=== PATIENT | female | born 1955 | race African-American/Black ===

== ENCOUNTER 2018-07-23 19:26 | Emergency (ER) | payer OTHER ==
[2018-07-23] MEDS ORDERED: METHYLPREDNISOLONE 125 MG INJ ONE (20:33)
[2018-07-23] MEDS ORDERED: LEVALBUTEROL 1.25 MG/3 ML NEB ONE (20:33)
[2018-07-23] MEDS ORDERED: OSELTAMIVIR 75 MG CAP ONE (20:33)
[2018-07-23] MEDS ORDERED: ALBUTEROL 2.5 MG/3 ML NEB SOL ONE (20:33)
[2018-07-23] MEDS ORDERED: IPRATROPIUM BROM 0.5MG/2.5ML ONE (20:33)
[2018-07-23] MEDS ORDERED: VANCOMYCIN 1 GM/VIAL ONE (20:33)
[2018-07-23] MEDS ORDERED: NA CHLORIDE 0.9% 250 ML ONE (20:34)
[2018-07-23] MEDS ORDERED: CEFEPIME 1 GM/100 ML BAG IV ONE (20:34)
[2018-07-23 20:57] LABS: Absolute Lymphocytes (CBC) 0.2 K/uL (0.7-4.9); Absolute Monocytes 0.6 K/uL (0.1-1.3); Absolute Neutrophil 7.7 K/uL (1.8-8.0); Basophils % 0.5 % (0-1.3); Eosinophils % 0.1 % (0-4.4); Hematocrit 39.4 % (36.0-45.0); Lymphocytes % 2.4 % (15.3-44.8); MPV 7.6 fL (7.6-11.3); Monocytes % 6.7 % (3.3-12.3); RBC Red Blood Cell Count 4.59 M/uL (3.86-4.86)
[2018-07-23 21:00] LABS: Protime INR 1.09
[2018-07-23 21:09] LABS: ALT/SGPT 12 U/L (12-78); AST/SGOT 13 U/L (15-37); Albumin 3.2 g/dL (3.4-5.0); Alkaline Phosphatase 71 U/L (45-117); BUN Blood Urea Nitrogen 34 mg/dL (7-18); Bicarbonate 27 mmol/L (21-32); Bilirubin Direct < 0.1 mg/dL (0-0.2); Bilirubin Total 0.2 mg/dL (0.2-1.0); CKMB Creatine Kinase MB 1.3 ng/mL (0.3-3.6); Creatine Phosphokinase 280 U/L (26-192); Glucose Level 138 mg/dL (74-106); Lipase 56 U/L (73-393); Magnesium 1.6 mg/dL (1.8-2.4); NT PRO-BNP 1506 pg/mL (<125); Protein, Total 9.1 g/dL (6.4-8.2); Sodium Level 133 mmol/L (136-145); Troponin (Emerg Dept Use Only) < 0.02 ng/mL (0.0-0.045)
[2018-07-23 21:10] LABS: Arterial Blood Carboxyhemoglob 2.8 % (0-1.5); Blood Gas Oxyhemoglobin 92.1 % (94-97); Blood O2 Saturation 95.9 % (92-98.5)
[2018-07-23] MEDS ORDERED: INSULIN -REGULAR HUMAN 50 UNIT/0.5 ML ML ONE (21:44)
[2018-07-23] MEDS ORDERED: D50W 25 GM/50 ML SYRINGE IV ONE (21:44)
[2018-07-23 21:51] LABS: Blood Morphology Comment NOT SEEN (NOT SEEN); Platelet Estimate ADEQ; Urine White Blood Cell Casts OK
[2018-07-23] MEDS ORDERED: CALCIUM GLUCONATE 1 GM IVPB 2 GM/100 ML BAG IV ONE (21:54)
[2018-07-23 23:09] LABS: Arterial Blood Carboxyhemoglob 2.2 % (0-1.5); Blood Gas Oxyhemoglobin 85.5 % (94-97); Blood O2 Saturation 88.5 % (92-98.5)
[2018-07-24] MEDS ORDERED: MAGNESIUM SULFATE 1 gm IVPB 1 GM/100 ML BAG IV ONE (00:02)
--- NOTE | 2018-07-24 00:44 | ER ---
Nurse's Notes [facility] Name: Deanna Flores Age: 62 yrs Sex: Female : 1955 Arrival Date: 07/23/2018 Time: 19:30 Bed 3 Private MD: Francisco Javier Shaffer Diagnosis: Hyperkalemia;Influenza due to certain identified influenza viruses;Pneumonia due to other specified bacteria Presentation: 07/23 19:57 Presenting complaint: Family states patient has been short of breath since this lp1 morning, diagnosed with the Flu today and throughout day has been harder to keep her awake; "She kept falling asleep, I couldn't keep her awake to eat or drink today"; Family states patient uses 3L home O2. Transition of care: patient was not received from another setting of care. Onset of symptoms was July 23, 2018. Risk Assessment: Do you want to hurt yourself or someone else? Patient reports no desire to harm self or others. Initial Sepsis Screen: Does the patient meet any 2 criteria? No. Patient's initial sepsis screen is negative. Does the patient have a suspected source of infection? No. Patient's initial sepsis screen is negative. Care prior to arrival: None. 19:57 Method Of Arrival: Wheelchair lp1 19:57 Acuity: JUDI 1 lp1 Triage Assessment: 20:00 General: Appears distressed, Behavior is drowsy. Respiratory: Airway is patent lp1 Respiratory effort is labored, Respiratory pattern is tachypnea Onset: The symptoms/episode began/occurred this morning, the patient has severe shortness of breath. Historical: - Allergies: 20:07 Sulfa (Sulfonamide Antibiotics); lp1 20:07 Codeine; lp1 - Home Meds: 20:07 furosemide 20 mg Oral tab [Active]; allopurinol 100 mg Oral tab 1 tab once daily lp1 [Active]; Bystolic 5 mg oral tab 1 tab once daily [Active]; cetirizine 10 mg oral tab 1 tab once daily [Active]; amlodipine 5 mg tab 1 tab once daily [Active]; atorvastatin 20 mg oral tab 1 tab once daily [Active]; aspirin 81 mg Oral TbEC 1 tab once daily [Active]; Plavix 75 mg Oral tab 1 tab once daily [Active]; fluticasone inhalation inhalation 1 puff [Active]; - PMHx: 20:07 COPD; Hypertension; "Enlarged heart"; Hyperlipidemia; CHF; Gout; lp1 - PSHx: 20:07 ; lp1 - Immunization history:: Adult Immunizations up to date. - Social history:: Smoking status: Patient uses tobacco products, smokes one pack cigarettes per day. Patient/guardian denies using alcohol, street drugs, The patient lives alone. - Ebola Screening: : No symptoms or risks identified at this time. - Family history:: not pertinent. Screenin:08 Abuse screen: Denies threats or abuse. Denies injuries from another. Nutritional lp1 screening: No deficits noted. Tuberculosis screening: No symptoms or risk factors identified. Fall Risk Total Albarran Fall Scale indicates High Risk Score (45 or more points). Fall prevention measures have been instituted. Side Rails Up X 2 Placed Close to Nursing Station Frequent Obs/Assessments Occuring Family Present and informed to notify staff if the need to leave the bedside As available patient and family educated on Fall Prevention Program and Strategies. Assessment: 20:00 General: Appears distressed, Behavior is calm, cooperative, RT at bedside to place ed1 bipap. Pain: Denies pain. Neuro: Level of Consciousness is lethargic, Oriented to person, place, situation. Cardiovascular: Denies chest pain, Heart tones S1 S2 present Rhythm is sinus tachycardia. Respiratory: Airway is patent Respiratory effort is grunting Respiratory pattern is symmetrical, Breath sounds are coarse bilaterally. Breath sounds are diminished bilaterally. Parent/caregiver reports the patient having shortness of breath at rest air hunger. GI: Parent/caregiver reports the patient having anorexia, vomiting. : No signs and/or symptoms were reported regarding the genitourinary system. EENT: No signs and/or symptoms were reported regarding the EENT system. Derm: Skin is intact, is healthy with good turgor, Skin is dry, Skin is normal, Skin temperature is warm. Musculoskeletal: Circulation, motion, and sensation intact. Range of motion: intact in all extremities. 21:00 Reassessment: Patient and/or family updated on plan of care and expected duration. Pain ed1 level reassessed. Patient states symptoms have improved. 21:00 Neuro: Level of Consciousness is obeys commands, Oriented to person, place. ed1 22:14 Reassessment: Patient appears in no apparent distress at this time. Patient and/or ed1 family updated on plan of care and expected duration. Pain level reassessed. RT called to adjust bipap settings Patient denies pain at this time. 22:14 Neuro: Level of Consciousness is obeys commands, lethargic, Oriented to person, place. ed1 22:31 Reassessment: Pt's fio2 increased to 70%. Dr ordering repeat ABG. fc 23:13 Reassessment: Patient appears in no apparent distress at this time. Patient and/or ed1 family updated on plan of care and expected duration. Pain level reassessed. 23:13 Neuro: Level of Consciousness is lethargic, Oriented to person, place. ed1 23:48 Reassessment: Patient and/or family updated on plan of care and expected duration. Pain ed1 level reassessed. RT at bedside to adjust bipap Patient denies pain at this time. 23:48 Neuro: Level of Consciousness is lethargic. ed1 07/24 01:31 Reassessment: Patient appears in no apparent distress at this time. Patient and/or ed1 family updated on plan of care and expected duration. Pain level reassessed. Patient denies pain at this time. Neuro: Level of Consciousness is lethargic, Oriented to person, place. Vital Signs: 18 19:59 Pulse Ox 68% on R/A; lp1 19:59 Pulse Ox 91% on Non-rebreather mask; lp1 20:00 BP 156 / 80; Pulse 108; Resp 28; Temp 97.5(TE); Pulse Ox 93% on 60% BiPAP; Weight ed1 106.14 kg; Height 5 ft. 6 in. (167.64 cm); Pain 0/10; 21:00 BP 131 / 78; Pulse 96; Resp 22; Pulse Ox 95% on 60% BiPAP; Pain 0/10; ed1 22:11 BP 136 / 62; Pulse 107; Resp 20; Pulse Ox 96% on 80% BiPAP; Pain 0/10; ed1 23:13 BP 128 / 68; Pulse 83; Resp 32; Pulse Ox 90% on 80% BiPAP; Pain 0/10; ed1 23:48 BP 124 / 74; Pulse 92; Resp 20; Pulse Ox 92% on 100% BiPAP; Pain 0/10; ed1 07/24 00:26 BP 137 / 73; Pulse 76; Resp 30; Temp 97.2(TE); Pulse Ox 90% on 90% BiPAP; ed1 00:47 Pulse 85; Resp 21; Pulse Ox 94% on 90% BiPAP; ed1 01:31 BP 131 / 69; Pulse 80; Resp 27; Pulse Ox 95% on 90% BiPAP; Pain 0/10; ed1 0218 20:00 Body Mass Index 37.77 (106.14 kg, 167.64 cm) ed1 07/23 20:00 BiPAP settings of 16/8, Rate of 14, 60% O2 ed1 23:48 bipap settings 24/10; resp 20; 100% O2 ed1 Surjit Coma Score: 20:00 Eye Response: to voice(3). Verbal Response: confused(4). Motor Response: obeys lp1 commands(6). Total: 13. 21:00 Eye Response: spontaneous(4). Verbal Response: oriented(5). Motor Response: obeys ed1 commands(6). Total: 15. 22:11 Eye Response: spontaneous(4). Verbal Response: oriented(5). Motor Response: obeys ed1 commands(6). Total: 15. ED Course: 19:30 Patient arrived in ED. es 19:31 Francisco Javier Shaffer MD is Private Physician. es 19:38 Jenna Hansen MD is Attending Physician. ma2 19:59 Triage completed. lp1 20:01 Arm band placed on left wrist. lp1 20:09 Patient has correct armband on for positive identification. Placed in gown. Bed in low lp1 position. Side rails up X2. quality assurance monitor chassis on. Pulse ox on. NIBP on. 20:18 Shwetha Ayala, RN is Primary Nurse. ed1 20:40 Initial lab(s) drawn, by me, sent to lab. Inserted 18 gauge 10 cm midline to left upper fc brachial vein on second attempt. Line with good blood return and flushes well. pt tolerated it well. 21:10 Notified ED physician of a critical lab result(s). D-Dimer 1254. lp1 21:24 Notified ED physician of a critical lab result(s). Potassium 7.0. ed1 22:50 XRAY CXR (1 view) In Process Unspecified. EDMS 07/24 00:03 BIPAP Sent. ed1 01:31 No provider procedures requiring assistance completed. Patient transferred, IV remains ed1 in place. intact, No redness/swelling at site. Administered Medications: 07/23 21:01 Drug: Xopenex 1.25 mg Route: Inhalation; ed1 21:01 Drug: Albuterol 2.5 mg Route: Inhalation; ed1 21:01 Drug: SOLU-Medrol 125 mg Route: IVP; Site: left upper arm; ed1 23:11 Follow up: Response: No adverse reaction ed1 21:01 Drug: Cefepime 1 grams Route: IVPB; Rate: 200 ml/hr; Infused Over: 30 mins; Site: left ed1 upper arm; 21:47 Follow up: Response: No adverse reaction; IV Status: Completed infusion; IV Intake: [id number] 21:02 Drug: AtroVENT Aerosol 0.5 mg Route: Inhalation; ed1 21:21 Drug: Albuterol 2.5 mg Route: Inhalation; ed1 21:21 Drug: AtroVENT Aerosol 0.5 mg Route: Inhalation; ed1 21:41 Drug: Albuterol 2.5 mg Route: Inhalation; ed1 21:41 Drug: AtroVENT Aerosol 0.5 mg Route: Inhalation; ed1 21:47 Drug: D50W 100 ml Route: IVP; Site: left upper arm; lp1 23:09 Follow up: Response: No adverse reaction ed1 21:52 Drug: vancoMYCIN 1 grams Route: IVPB; Infused Over: 2 hrs; Site: left upper arm; lp1 23:47 Follow up: Response: No adverse reaction; IV Status: Completed infusion; IV Intake: ed1 250ml 21:58 Drug: Calcium Gluconate 2 grams Route: IVPB; Infused Over: 60 mins; Site: left upper lp1 arm; 23:10 Follow up: Response: No adverse reaction; IV Status: Completed infusion; IV Intake: ed1 100ml 21:59 Drug: Insulin Regular Human 10 units {Co-Signature: ed1 (Shwetha Ayala RN).} Route: IVP; lp1 Site: left upper arm; 23:09 Follow up: Response: No adverse reaction ed1 22:10 CANCELLED (na): NS 0.9% 500 ml IV at 1 bolus Per protocol; 1000 mL bolus ma2 23:46 Not Given (Pt unable to tolerate PO at this time; notified): Tamiflu 75 mg PO once ed1 07/24 00:00 Drug: Magnesium Sulfate 1 grams Route: IVPB; Infused Over: 1 hrs; Site: left upper arm; ed1 01:35 Follow up: IV Status: Infusion continued upon transfer ed1 Intake: 07/23 21:47 IV: 50ml; Total: 50ml. lp1 23:10 IV: 100ml; Total: 150ml. ed1 23:47 IV: 250ml; Total: 400ml. ed1 Outcome: 07/24 00:43 ER care complete, transfer ordered by . ma2 01:31 Transferred by ground EMS [facility]. to other acute care facility: [facility] ed1 [place]. Transfer form completed. Note: Report called to [facility] Holder 01:31 Condition: stable 01:31 Discharge instructions given to patient, family, Instructed on the need for transfer, Demonstrated understanding of instructions. 01:58 Patient left the ED. ed1 Signatures: Dispatcher [employer] EDMS Saundra Pemberton Felicia, RN RN Shwetha Ayala RN RN ed1 Gabrielle Thrasher RN RN 1 Jenna Hansen MD MD hi2 Shwetha Ayala RN ed1 Corrections: (The following items were deleted from the chart) 07/23 20:02 20:00 BP 156 / 80; Pulse 108bpm; Resp 28bpm; Pulse Ox 93% 02 60% BiPAP; 106.14 kg; lp1 Height 5 ft. 6 in.; BMI: 37.7; Pain 0/10; lp1 20:08 19:57 Acuity: JUDI 2 lp1 lp1 22:11 20:00 General: Appears distressed, Behavior is calm, cooperative, ed1 ed1 07/24 00:16 18 21:00 Reassessment: Patient and/or family updated on plan of care and expected ed1 duration. Pain level reassessed. Patient is alert, oriented x 3, equal unlabored respirations, skin warm/dry/pink. Patient states symptoms have improved. ed1 07/24 00:16 18 22:14 Reassessment: Patient appears in no apparent distress at this time. Patient ed1 and/or family updated on plan of care and expected duration. Pain level reassessed. Patient is alert, oriented x 3, equal unlabored respirations, skin warm/dry/pink. RT called to adjust bipap settings Patient denies pain at this time. ed1 07/24 00:17 07/23 23:13 Reassessment: Patient appears in no apparent distress at this time. Patient ed1 and/or family updated on plan of care and expected duration. Pain level reassessed. Patient is alert, oriented x 3, equal unlabored respirations, skin warm/dry/pink. ed1 07/24 00:18 07/23 23:48 Reassessment: Patient and/or family updated on plan of care and expected ed1 duration. Pain level reassessed. Patient is alert, oriented x 3, equal unlabored respirations, skin warm/dry/pink. RT at bedside to adjust bipap Patient denies pain at this time. ed1 07/24 01:01 07/23 23:48 BP 124 / 74; Pulse 92bpm; Resp 20bpm; Pulse Ox 92% 02 100% BiPAP; Pain ed1 0/10; bipap settings 2/10; resp 20; 100% O2; ed1 07/24 01:31 18 20:00 BP 156 / 80; Pulse 108bpm; Resp 28bpm; Pulse Ox 93% 02 60% BiPAP; 106.14 ed1 kg; Height 5 ft. 6 in.; BMI: 37.7; Pain 0/10; BiPAP settings of 16/8, Rate of 14, 60% O2; lp1 07/24 01:31 00:26 BP 137 / 73; Pulse 76bpm; Resp 30bpm; Pulse Ox 90% 02 90% BiPAP; ed1 ed1
--- NOTE | 2018-07-24 00:44 | EDPHYS ---
Physician Documentation [facility] Name: Deanna Flores Age: 62 yrs Sex: Female : 1955 Arrival Date: 07/23/2018 Time: 19:30 Bed 3 Private MD: Francisco Javier Shaffer ED Physician Jenna Hansen HPI: 07/23 22:44 This 62 yrs old Black Female presents to ER via Wheelchair with complaints of Breathing ma2 Difficulty, UNABLE TO STAY AWAKE. 22:44 Onset: The symptoms/episode began/occurred gradually, 1 day(s) ago. Duration: The ma2 symptoms are continuous. Associated signs and symptoms: Pertinent positives: productive cough, Pertinent negatives: fever, loss of consciousness, visual changes. Severity of symptoms: At their worst the symptoms were moderate in the emergency department the symptoms are unchanged. The patient has experienced a previous episode. has flu here with sob and cough . Historical: - Allergies: 20:07 Sulfa (Sulfonamide Antibiotics); lp1 20:07 Codeine; lp1 - Home Meds: 20:07 furosemide 20 mg Oral tab [Active]; allopurinol 100 mg Oral tab 1 tab once daily lp1 [Active]; Bystolic 5 mg oral tab 1 tab once daily [Active]; cetirizine 10 mg oral tab 1 tab once daily [Active]; amlodipine 5 mg tab 1 tab once daily [Active]; atorvastatin 20 mg oral tab 1 tab once daily [Active]; aspirin 81 mg Oral TbEC 1 tab once daily [Active]; Plavix 75 mg Oral tab 1 tab once daily [Active]; fluticasone inhalation inhalation 1 puff [Active]; - PMHx: 20:07 COPD; Hypertension; "Enlarged heart"; Hyperlipidemia; CHF; Gout; lp1 - PSHx: 20:07 ; lp1 - Immunization history:: Adult Immunizations up to date. - Social history:: Smoking status: Patient uses tobacco products, smokes one pack cigarettes per day. Patient/guardian denies using alcohol, street drugs, The patient lives alone. - Ebola Screening: : No symptoms or risks identified at this time. - Family history:: not pertinent. ROS: 22:44 Constitutional: Negative for fever, chills, and weight loss. ma2 22:44 Respiratory: Positive for cough, dyspnea on exertion, Negative for orthopnea, pleurisy, wheezing. 22:44 All other systems are negative. Exam: 22:44 Constitutional: This is a well developed, well nourished patient who is awake, alert, ma2 and in no acute distress. Neck: Trachea midline, no thyromegaly or masses palpated, and no cervical lymphadenopathy. Supple, full range of motion without nuchal rigidity, or vertebral point tenderness. No Meningismus. Chest/axilla: Normal chest wall appearance and motion. Nontender with no deformity. No lesions are appreciated. 22:44 Cardiovascular: Regular rate and rhythm with a normal S1 and S2. No gallops, murmurs, or rubs. Normal PMI, no JVD. No pulse deficits. Abdomen/GI: Soft, non-tender, with normal bowel sounds. No distension or tympany. No guarding or rebound. No evidence of tenderness throughout. MS/ Extremity: Pulses equal, no cyanosis. Neurovascular intact. Full, normal range of motion. Neuro: Awake and alert, GCS 15, oriented to person, place, time, and situation. Cranial nerves II-XII grossly intact. Motor strength 5/5 in all extremities. Sensory grossly intact. Cerebellar exam normal. Normal gait. 22:44 Respiratory: moderate respiratory distress is noted, Breath sounds: rales, rhonchi, wheezing: Respiratory rate: 30 Vital Signs: 19:59 Pulse Ox 68% on R/A; lp1 19:59 Pulse Ox 91% on Non-rebreather mask; lp1 20:00 BP 156 / 80; Pulse 108; Resp 28; Temp 97.5(TE); Pulse Ox 93% on 60% BiPAP; Weight ed1 106.14 kg; Height 5 ft. 6 in. (167.64 cm); Pain 0/10; 21:00 BP 131 / 78; Pulse 96; Resp 22; Pulse Ox 95% on 60% BiPAP; Pain 0/10; ed1 22:11 BP 136 / 62; Pulse 107; Resp 20; Pulse Ox 96% on 80% BiPAP; Pain 0/10; ed1 23:13 BP 128 / 68; Pulse 83; Resp 32; Pulse Ox 90% on 80% BiPAP; Pain 0/10; ed1 23:48 BP 124 / 74; Pulse 92; Resp 20; Pulse Ox 92% on 100% BiPAP; Pain 0/10; ed1 07/24 00:26 BP 137 / 73; Pulse 76; Resp 30; Temp 97.2(TE); Pulse Ox 90% on 90% BiPAP; ed1 00:47 Pulse 85; Resp 21; Pulse Ox 94% on 90% BiPAP; ed1 01:31 BP 131 / 69; Pulse 80; Resp 27; Pulse Ox 95% on 90% BiPAP; Pain 0/10; ed1 07/23 20:00 Body Mass Index 37.77 (106.14 kg, 167.64 cm) ed1 07/23 20:00 BiPAP settings of 16/8, Rate of 14, 60% O2 ed1 23:48 bipap settings 24/10; resp 20; 100% O2 ed1 [place] Coma Score: 20:00 Eye Response: to voice(3). Verbal Response: confused(4). Motor Response: obeys lp1 commands(6). Total: 13. 21:00 Eye Response: spontaneous(4). Verbal Response: oriented(5). Motor Response: obeys ed1 commands(6). Total: 15. 22:11 Eye Response: spontaneous(4). Verbal Response: oriented(5). Motor Response: obeys ed1 commands(6). Total: 15. MDM: 19:38 Patient medically screened. ma2 22:44 Differential diagnosis: Anemia asthma, Bronchitis CHF exacerbation, Chronic Obstructive ma2 Pulmonary Disease reactive airway disease. 07/24 00:39 Antibiotic administration: Data reviewed: vital signs, nurses notes. Counseling: I had ma2 a detailed discussion with the patient and/or guardian regarding: the historical points, exam findings, and any diagnostic results supporting the discharge/admit diagnosis, the presence of at least one elevated blood pressure reading (>120/80) during this emergency department visit, the need to transfer to another facility. Response to treatment: the patient's symptoms have markedly improved after treatment. ED course: patient has pneumonia on cxr and hyperkalemia treated medically she was flue +, given tamiflu in er, her O2 saturation was 80 we put her on Bipap, respiratory condition improved she is AOx4 all through out her stay in er, her pulse improved from 110 to 85 bpm.. will transfer for higher level of care as no icu bed available in our hospital , accepted at [facility] by dr. Sykes and dr. Javier . 07/23 20:10 Order name: ABG; Complete Time: 22:06 [facility] 07/23 20:10 Order name: Blood Culture Adult (2) [facility] 07/23 20:10 Order name: BMP; Complete Time: :23 [facility] 07/23 20:10 Order name: CBC with Diff; Complete Time: 22: [facility] 07/23 20:10 Order name: Ckmb; Complete Time: : [facility] 07/23 20:10 Order name: CPK; Complete Time: : [facility] 07/23 20:10 Order name: D-Dimer; Complete Time: : [facility] 07/23 20:10 Order name: Hepatic Function; Complete Time: : [facility] 07/23 20:10 Order name: Lipase; Complete Time: : [facility] 07/23 20:10 Order name: Magnesium; Complete Time: : [facility] 07/23 20:10 Order name: NT PRO-BNP; Complete Time: : [facility] 07/23 20:10 Order name: PT-INR; Complete Time: : [facility] 07/23 20:10 Order name: Ptt, Activated; Complete Time: : [facility] 07/23 20:10 Order name: Troponin (emerg Dept Use Only); Complete Time: : [facility] 07/23 20:10 Order name: BIPAP [facility] 07/23 20:10 Order name: XRAY CXR (1 view) [facility] 07/23 21:02 Order name: Lactate; Complete Time: 21:23 [facility] 07/23 21:03 Order name: CBC Smear Scan; Complete Time: 22:06 [facility] 07/23 22:30 Order name: ABG 07/23 22:31 Order name: ABG Arterial Blood Gas; Complete Time: 00:21 [facility] 07/23 23:29 Order name: BMP: potassium post Rx repeat ; Complete Time: 00:21 [facility] 07/23 20:10 Order name: EKG; Complete Time: 20:12 [facility] 07/23 20:10 Order name: Cardiac monitoring; Complete Time: 20:26 [facility] 07/23 20:10 Order name: EKG - Nurse/Tech; Complete Time: 23:10 [facility] 07/23 20:10 Order name: IV Saline Lock; Complete Time: 23:10 [facility] 07/23 20:10 Order name: Labs collected and sent; Complete Time: 23:10 [facility] 07/23 20:10 Order name: O2 Per Protocol; Complete Time: 20:26 ma2 07/23 20:10 Order name: O2 Sat Monitoring; Complete Time: 20:26 ma2 Administered Medications: 07/23 21:01 Drug: Xopenex 1.25 mg Route: Inhalation; ed1 21:01 Drug: Albuterol 2.5 mg Route: Inhalation; ed1 21:01 Drug: SOLU-Medrol 125 mg Route: IVP; Site: left upper arm; ed1 23:11 Follow up: Response: No adverse reaction ed1 21:01 Drug: Cefepime 1 grams Route: IVPB; Rate: 200 ml/hr; Infused Over: 30 mins; Site: left ed1 upper arm; 21:47 Follow up: Response: No adverse reaction; IV Status: Completed infusion; IV Intake: [id number] 21:02 Drug: AtroVENT Aerosol 0.5 mg Route: Inhalation; ed1 21:21 Drug: Albuterol 2.5 mg Route: Inhalation; ed1 21:21 Drug: AtroVENT Aerosol 0.5 mg Route: Inhalation; ed1 21:41 Drug: Albuterol 2.5 mg Route: Inhalation; ed1 21:41 Drug: AtroVENT Aerosol 0.5 mg Route: Inhalation; ed1 21:47 Drug: D50W 100 ml Route: IVP; Site: left upper arm; lp1 23:09 Follow up: Response: No adverse reaction ed1 21:52 Drug: vancoMYCIN 1 grams Route: IVPB; Infused Over: 2 hrs; Site: left upper arm; lp1 23:47 Follow up: Response: No adverse reaction; IV Status: Completed infusion; IV Intake: ed1 250ml 21:58 Drug: Calcium Gluconate 2 grams Route: IVPB; Infused Over: 60 mins; Site: left upper lp1 arm; 23:10 Follow up: Response: No adverse reaction; IV Status: Completed infusion; IV Intake: ed1 100ml 21:59 Drug: Insulin Regular Human 10 units {Co-Signature: ed1 (Shwetha Ayala RN).} Route: IVP; lp1 Site: left upper arm; 23:09 Follow up: Response: No adverse reaction ed1 22:10 CANCELLED (na): NS 0.9% 500 ml IV at 1 bolus Per protocol; 1000 mL bolus oh2 23:46 Not Given (Pt unable to tolerate PO at this time; notified): Tamiflu 75 mg PO once ed1 07/24 00:00 Drug: Magnesium Sulfate 1 grams Route: IVPB; Infused Over: 1 hrs; Site: left upper arm; ed1 01:35 Follow up: IV Status: Infusion continued upon transfer ed1 Disposition: 07/24/18 00:43 Transfer ordered to Other Acute Care Facility. Diagnosis are Hyperkalemia, Influenza due to certain identified influenza viruses, Pneumonia due to other specified bacteria. - Reason for transfer: Higher level of care. - Accepting physician is Dr. Sykes. - Condition is Critical. - Problem is new. - Symptoms have improved. Signatures: Dispatcher [employer] [facility] Shwetha Ayala RN RN ed1 Gabrielle Thrasher RN RN 1 Jenna Hansen MD MD oh2 Shwetha Ayala RN ed1 Corrections: (The following items were deleted from the chart) 07/23 22:10 22:06 NS 0.9% 500 ml IV at 1 bolus Per protocol; 1000 mL bolus ordered. [place] [id number] 22:20 21:24 Chest For PE Angio+[id number].RAD.BRZ ordered. [facility] 07/24 00:53 07/23 20:10 Nicolas ordered. [place] [id number] 07/24 01:58 00:43 07/24/2018 00:43 Transfer ordered to Other Acute Care Facility. Diagnosis is ed1 Hyperkalemia; Influenza due to certain identified influenza viruses; Pneumonia due to other specified bacteria. Reason for transfer: Higher level of care. Accepting physician is Dr. Sykes. Condition is Critical. Problem is new. Symptoms have improved. [facility]
--- NOTE | 2018-07-24 08:48 | EKG ---
Test Date: 2018-07-23 Test Time: 21:35:14 Mechanical Apprentice: AER MEASUREMENT RESULTS: Intervals: Rate: 100 CO: 162 QRSD: 94 QT: 346 QTc: 446 [place]: P: 54 CO: 162 QRS: 38 T: 62 INTERPRETIVE STATEMENTS: Normal sinus rhythm Possible Left atrial enlargement Borderline ECG No previous ECG available for comparison Electronically Signed On 07-24-18 08:46:01 [employer] by Mark Licona
--- NOTE | 2018-07-24 13:22 | RAD REPORT ---
EXAM DESCRIPTION: XR Chest, 1 View CLINICAL HISTORY: The patient is 62 years old and is Female; COPD COMPARISON: No relevant prior studies available. TECHNIQUE: Frontal view of the chest. FINDINGS: Lungs: There is bilateral hilar enlargement. There is diffuse increased interstitial density with superimposed patchy airspace disease particularl y in the lung bases. Pleural space: Unremarkable. No pneumothorax. Heart: Large cardiac shadow. Mediastinum: Unremarkable. Bones/joints: Unremarkable. IMPRESSION: 1. Bilateral hilar enlargement possibly related to adenopathy or pulmonary arterial hype rtension. Prior study comparison or IV contrast CT chest would be helpful. 2. Interstitial disease with superimposed mild patchy airspace disease particularly in the bases. Con licensed mortician pneumonia. Electronically signed by Stacey Young MD 07/23/2018 10:53 PM [employer] ATTENDANT Due to temporary technical issues with the PACS/Fluency reporting system, reports are being signed by the in house radiologist as a courtesy to ensure prompt reporting. The interpreting radiologist is f ully responsible for the content of the report.
== END 2018-07-24 01:58 ==
LOC: ER 19:26
DX: J10.08 Influenza due to other identified influenza virus with other specified pneumonia (principal); J15.8 Pneumonia due to other specified bacteria; E87.5 Hyperkalemia; F17.210 Nicotine dependence, cigarettes, uncomplicated; I10 Essential (primary) hypertension; J44.9 Chronic obstructive pulmonary disease, unspecified; I50.9 Heart failure, unspecified; E78.5 Hyperlipidemia, unspecified; Z79.01 Long term (current) use of anticoagulants; Z88.2 Allergy status to sulfonamides; Z88.5 Allergy status to narcotic agent
CPT/HCPCS: 36415; 71045; 80048; 80076; 82550; 82553; 82805; 83605; 83690; 83735; 83880; 84484; 85025; 85379; 85610; 85730; 87040; 93005; 94660; J0610; J0692; J2930; J3475

== ENCOUNTER 2019-01-22 15:20 | Inpatient (IN) | payer OTHER ==
--- OUTSIDE RECORDS SUMMARY | 2019-01-22 15:28 | XMS REPORT | Continuity of Care Document ---
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 obstructive lung disease (disorder) Essential Active Problem 2018 [facility] hypertension (disorder) Smoker (finding) Resolved Problem 2018 [facility] PNEUMONIA, Active [facility] UNSPECIFIED [place] OR[employer]ISM Medications Medication Details Route Status Patient Ordering Order Source Instructions Provider Date predniSONE 20 mg 40 mg=2 tab, Active oral tablet PO, Daily, X 3 2019 [facility] day, # 6 tab, 0 Refill(s), Pharmacy: [facility] [place] Furosemide 40 MG 40 mg=1 tab, Active Oral Tablet PO, Daily, # 30 2019 [facility] [Lasix] tab, 2 Refill(s), Pharmacy: [facility] [place] Furosemide 40 MG 40 mg, 1 tab, Inactive Oral Tablet Route: PO, Drug 2018 [facility] [Lasix] form: TAB, Daily, Dosing Weight 106.5, kg, Priority: NOW, Start date: 08/01/18 10:05:00 FIELD TRAINER, Duration: 30 day, Stop date: 08/31/18 9:00:00 CDTNotes: (Same as: Lasix) May cause GI upset. Give with food or milk. Lasix 40 mg, 4 mL, No Longer Route: IV, Drug Active 2018 [facility] form: INJ, BID, Dosing Weight 106.5, kg, Start date: 07/30/18 17:00:00 FIELD TRAINER, Duration: 30 day, Stop date: 08/29/18 9:00:00 CDTNotes: (Same as: Lasix) MEDICATION WASTE Product Size: 40 mg Product Wasted: ___ mg Lasix 40 mg, 1 tab, No Longer Route: PO, Drug Active 2019 [facility] form: TAB, BID, Dosing Weight 106.5, kg, Start date: 07/29/18 17:00:00 FIELD TRAINER, Duration: 30 day, Stop date: 08/28/18 9:00:00 CDTNotes: (Same as: Lasix) May cause GI upset. Give with food or milk. Acetazolamide 250 mg, Route: No Longer IVP, Drug form: Active 2019 [facility] PDR/INJ, Daily, Dosing Weight 106.5, kg, Priority: NOW, Start date: 07/29/18 9:26:00 FIELD TRAINER, Duration: 3 day, Stop date: 08/01/18 9:00:00 CSTNotes: (Same as: Diamox) Lasix 40 mg, 1 tab, Inactive Route: PO, Drug 2018 [facility] form: TAB, Daily, Dosing Weight 106.5, kg, Start date: 07/29/18 9:00:00 FIELD TRAINER, Duration: 30 day, Stop date: 08/27/18 9:00:00 CDTNotes: (Same as: Lasix) May cause GI upset. Give with food or milk. Bystolic 5 mg, 2 tab, No Longer Route: PO, Drug Active 2019 [facility] form: TAB, Daily, Dosing Weight 106.5, kg, Start date: 07/29/18 9:00:00 FIELD TRAINER, Duration: 30 day, Stop date: 08/27/18 9:00:00 CDTNotes: Same as: Bystolic Singulair 10 mg, 1 tab, No Longer Route: PO, Drug Active 2019 [facility] form: TAB, Daily, Dosing Weight 106.5, kg, Start date: 07/29/18 9:00:00 FIELD TRAINER, Duration: 30 day, Stop date: 08/27/18 9:00:00 CDTNotes: (Same as:Singulair) Fluticasone 50 microgram, No Longer propionate 0.05 Route: NASAL, Active 2018 [facility] MG/ACTUAT Metered Drug Form: Dose Nasal Sunray SPRY, Dosing [Flonase] Weight 106.5, kg, BID, Start date: 07/29/18 9:00:00 FIELD TRAINER, Duration: 30 day, Stop date: 08/27/18 17:00:00 CDTNotes: (Same as: Flonase) Advair Diskus 250 1 puff, Route: No Longer mcg-50 mcg INHALATION, Active 2019 [facility] inhalation powder Drug Form: AERO, Dosing Weight 106.5, kg, BID, Start date: 07/29/18 9:00:00 FIELD TRAINER, Duration: 30 day, Stop date: 08/27/18 17:00:00 CDT Aspirin 81 mg, 1 tab, No Longer Route: PO, Drug Active 2019 [facility] form: ECTAB, Daily, Dosing Weight 106.5, kg, Start date: 07/29/18 9:00:00 FIELD TRAINER, Duration: 30 day, Stop date: 08/27/18 9:00:00 CDTNotes: Do not crush or chew. (Same As: Ecotrin) Plavix 75 mg, 1 tab, No Longer Route: PO, Drug Active 2019 [facility] form: TAB, Daily, Dosing Weight 106.5, kg, Start date: 07/29/18 9:00:00 FIELD TRAINER, Duration: 30 day, Stop date: 08/27/18 9:00:00 CDTNotes: (Same As: Plavix) Norvasc 5 mg, 1 tab, No Longer Route: PO, Drug Active 2019 [facility] form: TAB, Daily, Dosing Weight 106.5, kg, Start date: 07/29/18 9:00:00 FIELD TRAINER, Duration: 30 day, Stop date: 08/27/18 9:00:00 CDTNotes: (Same as: Norvasc) Allopurinol 100 mg, 1 tab, No Longer Route: PO, Drug Active 2019 [facility] form: TAB, Daily, Dosing Weight 106.5, kg, Start date: 07/29/18 9:00:00 FIELD TRAINER, Duration: 30 day, Stop date: 08/27/18 9:00:00 CDTNotes: (Same as: Zyloprim) atorvastatin 20 mg, 2 tab, No Longer Route: PO, Drug Active 2019 [facility] form: TAB, Bedtime, Dosing Weight 106.5, kg, Start date: 07/28/18 21:00:00 FIELD TRAINER, Duration: 30 day, Stop date: 08/26/18 21:00:00 CDTNotes: (Same As: Lipitor) Zyrtec 10 mg, 1 tab, No Longer Route: PO, Drug Active 2018 [facility] form: TAB, Daily, Dosing Weight 106.5, kg, PRN Allergic reaction, Start date: 07/28/18 18:14:00 FIELD TRAINER, Duration: 30 day, Stop date: 08/27/18 18:13:00 CDTNotes: (Same As: Zyrtec) cefTRIAXone + 1 gm, Route: No Longer sterile water 10 IVP, [id number], Active 2018 [facility] mL Dosing Weight 106.5, kg, Start date: 07/27/18 17:00:00 FIELD TRAINER, Duration: 4 day, Stop date: 07/30/18 17:00:00 FIELD TRAINER, ABX Indication: PneumoniaNotes: (Same As: Rocephin). Use with 100 mL NS and infuse over 30 min MEDICATION WASTE Product Size: 1000 mg Product Wasted: ___ mg Ceftriaxone 1 gm, Route: Inactive IVP, [id number], 2018 [facility] Dosing Weight 106.5, kg, Start date: 07/27/18 17:00:00 FIELD TRAINER, Duration: 4 day, Stop date: 07/30/18 17:00:00 FIELD TRAINER, ABX Indication: PneumoniaNotes: (Same As: Rocephin). Use with 100 mL NS and infuse over 30 min MEDICATION WASTE Product Size: 1000 mg Product Wasted: ___ mg Furosemide 40 mg, 4 mL, Inactive Route: IVP, 2018 [facility] Drug form: INJ, ONCE, Dosing Weight 106.5, kg, Start date: 07/27/18 12:23:00 FIELD TRAINER, Stop date: 07/27/18 12:23:00 CSTNotes: (Same as: Lasix) MEDICATION WASTE Product Size: 40 mg Product Wasted: ___ mg Lasix 40 mg, 1 tab, No Longer Route: PO, Drug Active 2019 [facility] form: TAB, BID Diuretic, Dosing Weight 106.5, kg, Start date: 07/27/18 9:00:00 FIELD TRAINER, Duration: 30 day, Stop date: 08/26/18 8:00:00 CDTNotes: (Same as: Lasix) May cause GI upset. Give with food or milk. Prednisone 40 mg, 2 tab, No Longer Route: PO, Drug Active 2019 [facility] form: TAB, Daily, Dosing Weight 106.5, kg, Start date: 07/27/18 9:00:00 FIELD TRAINER, Duration: 30 day, Stop date: 08/25/18 9:00:00 CDTNotes: Take with food. clopidogrel 75 MG 75 mg=1 tab, Active Oral Tablet PO, Daily, # 30 2019 [facility] [Plavix] tab, 0 Refill(s) Fluticasone 1 spray, NASAL, Active propionate 0.05 BID, # 16 gm, 0 2019 [facility] MG/ACTUAT Metered Refill(s) Dose Nasal Sunray [Flonase] atorvastatin 20 mg 20 mg=1 tab, Active oral tablet PO, Bedtime, # 2019 [facility] 90 tab, 1 Refill(s) cetirizine 10 mg=1 tab, Active hydrochloride 10 PO, Daily, PRN 2019 [facility] MG Oral Tablet Allergic [Zyrtec] reaction, # 10 tab, 0 Refill(s) Furosemide 20 MG 20 mg=1 tab, No Longer Oral Tablet PO, Daily, 0 Active 2019 [facility] [Lasix] Refill(s) nebivolol 5 MG 5 mg=1 tab, PO, Active Oral Tablet Daily, # 30 2019 [facility] [Bystolic] tab, 0 Refill(s) montelukast 10 MG 10 mg=1 tab, Active Oral Tablet PO, Daily, 0 2019 [facility] [Singulair] Refill(s) 200 ACTUAT 1 puff, Active Albuterol 0.09 INHALER, Q6H, 2019 [facility] MG/ACTUAT Metered PRN for Dose Inhaler wheezing, # 8.5 [ProAir HFA] gm, 0 Refill(s) Amlodipine 5 MG 5 mg=1 tab, PO, Active Oral Tablet Daily, # 30 2019 [place] [Norvasc] tab, 0 Refill(s) Advair Diskus 250 1 puff, No Longer mcg-50 mcg INHALATION, Active 2019 [facility] inhalation powder BID, # 1 ea, 3 Refill(s) allopurinol 100 mg 100 mg=1 tab, Active oral tablet PO, Daily, # 90 2019 [facility] tab, 1 Refill(s) Magnesium Sulfate 1 gm, 100 mL, Inactive Route: IVPB, 2019 [facility] Drug form: INJ, ONCE, Dosing Weight 106.5, kg, Start date: 07/26/18 7:15:00 FIELD TRAINER, Stop date: 07/26/18 7:15:00 CSTNotes: WASTE: F/P - Sink; E - Municipal Trash Bin Solu-Medrol 40 mg, 1 mL, No Longer Route: IV, Drug Active 2019 [facility] form: INJ, Q12H, Dosing Weight 95.909, kg, Start date: 07/25/18 9:00:00 FIELD TRAINER, Stop date: 07/26/18 21:00:00 CSTNotes: (Same as:Solu-MEDROL, A-Methapred) Tamiflu 75 mg, 1 cap, Inactive Route: PO, Drug 2018 [facility] form: CAP, [id number], Dosing Weight 95.909, kg, CrCl > 30 to 60 mL/min, Start date: 07/24/18 18:00:00 FIELD TRAINER, Duration: 5 day, Stop date: 07/28/18 18:00:00 CSTNotes: Take with food. Same as: Tamiflu) vancomycin + 750 mg, Route: No Longer Sodium Chloride IVPB, Q12H, Active 2019 [facility] 0.9% IV 250 mL Start date: 07/24/18 18:00:00 FIELD TRAINER, Duration: 5 day, Stop date: 07/29/18 6:00:00 FIELD TRAINER, ABX Indication: PneumoniaNotes: TIME CRITICAL MEDICATION (Same As: Vancocin) Infusion rate 2001 mg: infuse over 2.5 hours For adult patients only: Round to nearest 250 mg per Medical Staff approval MEDICATION WASTE Product Size: 1000 mg Product Wasted: ___ mg Kayexalate 15 gm, 60 mL, Inactive Route: PO, Drug 2018 [facility] form: SUSP, ONCE, Dosing Weight 106.5, kg, Start date: 07/24/18 17:12:00 FIELD TRAINER, Stop date: 07/24/18 17:12:00 CSTNotes: (sodium polystyrene sulfonate 15 gm/60 ml JESSICA) Shake well before use. (Same as: Kayexalate, SPS) Lasix 40 mg, 4 mL, No Longer Route: IVP, Active 2018 [facility] Drug form: INJ, BID Diuretic, Dosing Weight 106.5, kg, Start date: 07/24/18 16:00:00 FIELD TRAINER, Duration: 30 day, Stop date: 08/23/18 8:00:00 CDTNotes: (Same as: Lasix) MEDICATION WASTE Product Size: 40 mg Product Wasted: ___ mg Oseltamivir 30 mg, 5 mL, No Longer Route: PO, Drug Active 2018 [facility] form: PDR/REC, Q12H, Dosing Weight 106.5, kg, Start date: 07/24/18 9:31:00 FIELD TRAINER, Duration: 5 day, Stop date: 07/29/18 9:00:00 CSTNotes: (Same as: Tamiflu) Sodium Bicarbonate 50 mEq, 50 mL, Inactive Route: IV, Drug 2018 [facility] form: INJ, ONCE, Dosing Weight 106.5, kg, Start date: 07/24/18 8:10:00 FIELD TRAINER, Stop date: 07/24/18 8:10:00 CSTNotes: (sodium bicarb 8.4% (1 mEq/ml) 50 ml VL) Solu-Medrol 40 mg, 1 mL, No Longer Route: IV, Drug Active 2018 [facility] form: INJ, Q8H, Dosing Weight 95.909, kg, Start date: 07/24/18 8:00:00 FIELD TRAINER, Duration: 30 day, Stop date: 08/23/18 0:00:00 CDTNotes: (Same as:Solu-MEDROL, A-Methapred) Budesonide 0.5 mg, 2 mL, No Longer Route: NEB, Active 2019 [facility] Drug form: SUSP, RBID, Dosing Weight 106.5, kg, Start date: 07/24/18 8:00:00 FIELD TRAINER, Duration: 30 day, Stop date: 08/22/18 20:00:00 CDTNotes: (Same As: Pulmicort) heparin 5,000 unit, 1 No Longer mL, Route: Active 2019 [facility] SUB-Q, Drug form: INJ, Q8H, Dosing Weight 95.909, kg, Start date: 07/24/18 8:00:00 FIELD TRAINER, Stop date: 08/23/18 0:00:00 CDTNotes: porcine heparin Albuterol 0.833 3 mL, Route: No Longer MG/ML / NEB, Drug Form: Active 2019 [facility] Ipratropium SOLN, Dosing [place] 0.167 Weight 95.909, MG/ML Inhalant kg, RQ6H, Start Solution date: 07/24/18 8:00:00 FIELD TRAINER, Duration: 30 day, Stop date: 08/23/18 2:00:00 CDTNotes: (Same as: Duoneb) cefepime 1 gm, Route: No Longer IVPB, [id number], Active 2019 [facility] Dosing Weight 95.909, kg, (CrCl 30 - 49 ml/min), Start date: 07/24/18 8:00:00 FIELD TRAINER, Duration: 5 day, Stop date: 07/28/18 20:00:00 FIELD TRAINER, ABX Indication: PneumoniaNotes: (Same As: Maxipime) MEDICATION WASTE Product Size: 1000 mg Product Wasted: ___ mg Insulin regular 6 unit, 0.06 Inactive mL, Route: IV, 2019 [facility] Drug form: SOLN, ONCE, Dosing Weight 106.5, kg, Start date: 07/24/18 6:19:00 FIELD TRAINER, Stop date: 07/24/18 6:19:00 CSTNotes: (Same as: Humulin R) Roll in palms of hands gently; Do not shake vigorously. "single patient use only" (Restricted to patients requiring a dose > 60 units) WASTE: F/P - Black; E - Municipal Trash Bin Stable for 28 days at room temperature Expires in days from D ate Dextrose 50% 25 gm, 50 mL, Inactive Syringe Route: IVP, 2018 [facility] Drug Form: INJ, Dosing Weight 106.5, kg, ONCE, Start date: 07/24/18 6:19:00 FIELD TRAINER, Stop date: 07/24/18 6:19:00 FIELD TRAINER Kayexalate 30 gm, 120 mL, Inactive Route: PO, Drug 2018 [facility] form: SUSP, ONCE, Dosing Weight 106.5, kg, Start date: 07/24/18 6:19:00 FIELD TRAINER, Stop date: 07/24/18 6:19:00 CSTNotes: (sodium polystyrene sulfonate 15 gm/60 ml JESSICA) Shake well before use. (Same as: Kayexalate, SPS) vancomycin + 2,000 mg, Inactive Sodium Chloride Route: IVPB2018 [facility] 0.9% IV 500 mL ONCE, Start date: 07/24/18 4:58:00 FIELD TRAINER, Stop date: 07/24/18 4:58:00 FIELD TRAINER, ABX Indication: PneumoniaNotes: TIME CRITICAL MEDICATION (Same As: Vancocin) Infusion rate 2001 mg: infuse over 2.5 hours For adult patients only: Round to nearest 250 mg per Medical Staff approval MEDICATION WASTE Product Size: 1000 mg Product Wasted: ___ mg Vancomycin 1 ea, Route: No Longer MISC, Drug Active 2018 [facility] form: INJ, ONCALL, Dosing Weight 95.909, kg, Start date: 07/24/18 4:00:00 FIELD TRAINER, Duration: 5 day, Stop date: 07/29/18 3:59:00 FIELD TRAINER, Pharmacy to dose, ABX Indication: PneumoniaNotes: TIME CRITICAL MEDICATION (Same As: Vancocin) Infusion rate 2000 mg: infuse over 2.5 hours For adult patients only: Round to nearest 250 mg per Medical Staff approval MEDICATION WASTE Product Size: 1000 mg Product Wasted: ___ mg Dextromethorphan 10 mL, Route: No Longer Hydrobromide 10 MG PO, Drug Form: Active 2019 [facility] / Guaifenesin 100 SYRP, Dosing MG Oral Tablet Weight 95.909, kg, Q4H, PRN Cough, Start date: 07/24/18 3:03:00 FIELD TRAINER, Duration: 30 day, Stop date: 08/23/18 3:02:00 CDTNotes: (dextromethorph an-guaifenesin 10-100mg/5ml 10 ml oral SOLN ud) (Same as: Robitussin DM) Tessalon Perles 100 mg, 1 cap, No Longer Route: PO, Drug Active 2019 [facility] form: CAP, TID, Dosing Weight 95.909, kg, PRN Cough, Start date: 07/24/18 3:03:00 FIELD TRAINER, Duration: 30 day, Stop date: 08/23/18 3:02:00 CDTNotes: (Same As: Tessalon Perles) "Do Not Crush" Morphine 2 mg, 0.5 mL, No Longer Route: IVP, Active 2018 [facility] Drug form: SOLN, Q4H, Dosing Weight 95.909, kg, PRN Pain Score 7-10, Start date: 07/24/18 3:03:00 FIELD TRAINER, Duration: 30 day, Stop date: 08/23/18 3:02:00 CDTNotes: (Same as:MORPhine Sulfate) Albuterol 0.83 2.49 mg, 3 mL, No Longer MG/ML Inhalant Route: NEB, Active 2018 [facility] Solution Drug form: SOLN, RQ2H, Dosing Weight 95.909, kg, PRN Wheezing, Priority: Routine, Start date: 07/24/18 2:59:00 FIELD TRAINER, Duration: 30 day, Stop date: 08/23/18 2:58:00 CDTNotes: SEE RT DOCUMENTATION (Same as: Proventil) Dextrose 50% 25 gm, 50 mL, No Longer Syringe Route: IVP, Active 2019 [facility] Drug Form: INJ, Dosing Weight 95.909, kg, PRN, PRN Blood Glucose Results, Start date: 07/24/18 2:59:00 FIELD TRAINER, Duration: 30 day, Stop date: 08/23/18 3:58:00 CDT Glucagon 1 mg, Route: No Longer IM, Drug form: Active 2019 [facility] PDR/INJ, PRN, Dosing Weight 95.909, kg, PRN Blood Glucose Results, Start date: 07/24/18 2:59:00 FIELD TRAINER, Duration: 30 day, Stop date: 08/23/18 3:58:00 CDT Acetaminophen 650 mg, 2 tab, No Longer Route: PO, Drug Active 2018 [facility] form: TAB, Q4H, Dosing Weight 95.909, kg, PRN For Temp > 100.4 F, Start date: 07/24/18 2:59:00 FIELD TRAINER, Duration: 30 day, Stop date: 08/23/18 2:58:00 CDTNotes: Do not exceed 4 gm/day. (Same as: Tylenol) Ondansetron 4 mg, 2 mL, No Longer Route: IVP, Active 2018 [facility] Drug form: INJ, Q8H, Dosing Weight 95.909, kg, PRN Nausea & Vomiting, Start date: 07/24/18 2:59:00 FIELD TRAINER, Duration: 30 day, Stop date: 08/23/18 2:58:00 CDTNotes: (Same as: Zofran) MEDICATION WASTE Product Size: 4 mg Product Wasted: ___ mg Bisacodyl 10 mg, 1 supp, No Longer Route: KY, Drug Active 2018 [facility] form: SUPP, Daily, Dosing Weight 95.909, kg, PRN Constipation, Start date: 07/24/18 2:59:00 FIELD TRAINER, Duration: 30 day, Stop date: 08/23/18 2:58:00 CDTNotes: (Same As: Dulcolax, Bisco-Lax) Allergies, Adverse Reactions, Alerts Substance Category Reaction Severity Reaction Status Date Comments Source type Reported sulfa drugs Assertion Drug Active MH allergy [facility] codeine Assertion Drug Active MH allergy [facility] Vicodin Assertion Drug Active MH allergy [facility] Immunizations No Data Provided for This Section Results Order Name Results Value Reference Date Interpretation Comments Source Range ELECTROLYTE AGAP 12.1 10.0 - 07/31 MH S 20.0 [facility] ELECTROLYTE eGFR 42 07/31 Result MH S Comment: The [facility] eGFR is calculated using the CKD-EPI formula. In most young, healthy individuals the eGFR will be >90 mL/min/1.73m2 . The eGFR declines with age. An eGFR of 60-89 may be normal in some populations, particularly the elderly, for whom the CKD-EPI formula has not been extensively validated. Use of the eGFR is not recommended in the following populations:< br/>
Anay viduals with unstable creatinine concentration s, including patients and those with serious co-morbid conditions.<b r/>
Patie nts with extremes in muscle mass or diet.

The data above are obtained from the National Kidney Disease Education Program (NKDEP) which additionally recommends that when the eGFR is used in patients with extremes of body mass index for purposes of drug dosing, the eGFR should be multiplied by the estimated BMI. ELECTROLYTE Creatinine 1.51 0.50 - 07/31 MH S Lvl 1.40 [facility] ELECTROLYTE CO2 33 24 - 32 07/31 MH S [facility] ELECTROLYTE Calcium Lvl 9.0 8.5 - 10.5 07/31 S [facility] ELECTROLYTE Chloride Lvl 97 95 - 109 07/31 S [facility] ELECTROLYTE Sodium Lvl 138 135 - 145 07/31 MH S [facility] ELECTROLYTE Potassium 4.1 3.5 - 5.1 07/31 MH S Lvl /2018 [facility] ELECTROLYTE Glucose Lvl 88 70 - 99 07/31 MH S [facility] ELECTROLYTE BUN 67 7 - 22 07/31 MH S [facility] HEMATOLOGY WBC 5.8 3.7 - 10.4 07/31 [facility] HEMATOLOGY RBC 4.69 4.20 - 07/31 MH 5.40 [facility] HEMATOLOGY MCHC 33.2 32.0 - 07/31 MH 36.0 [facility] HEMATOLOGY RDW 17.7 11.5 - 07/31 MH 14.5 [facility] HEMATOLOGY Hct 39.0 36.0 - 07/31 MH 48.0 [facility] HEMATOLOGY MCH 27.5 27.0 - 07/31 MH 31.0 [facility] HEMATOLOGY MCV 83.0 80.0 - 07/31 MH 98.0 [facility] HEMATOLOGY Platelet 250 133 - 450 07/31 [facility] HEMATOLOGY MPV 7.7 7.4 - 10.4 07/31 [facility] HEMATOLOGY Hgb 12.9 12.0 - 07/31 MH 16.0 [facility] HEMATOLOGY Eosinophils 0.4 0.0 - 4.0 07/31 [facility] HEMATOLOGY Monocytes 9.4 2.0 - 12.0 07/31 [facility] HEMATOLOGY Lymphocytes 22.3 20.0 - 07/31 MH 40.0 [facility] HEMATOLOGY Segs 67.7 45.0 - 07/31 MH 75.0 [facility] HEMATOLOGY Neutrophils 3.9 1.5 - 8.1 07/31 # /2018 [facility] HEMATOLOGY Lymphocytes 1.3 1.0 - 5.5 07/31 # /2018 [facility] HEMATOLOGY Monocytes # 0.5 0.0 - 0.8 07/31 [facility] HEMATOLOGY Basophils 0.2 0.0 - 1.0 07/31 [facility] ELECTROLYTE AGAP 8.3 10.0 - 07/30 MH S 20. [facility] ELECTROLYTE eGFR 38 07/30 Comment: The [facility] eGFR is calculated using the CKD-EPI formula. In most young, healthy individuals the eGFR will be >90 mL/min/1.73m2 . The eGFR declines with age. An eGFR of 60-89 may be normal in some populations, particularly the elderly, for whom the CKD-EPI formula has not been extensively validated. Use of the eGFR is not recommended in the following populations:< br/>
Anay viduals with unstable creatinine concentration s, including patients and those with serious co-morbid conditions.<b r/>
Patie nts with extremes in muscle mass or diet.

The data above are obtained from the National Kidney Disease Education Program (NKDEP) which additionally recommends that when the eGFR is used in patients with extremes of body mass index for purposes of drug dosing, the eGFR should be multiplied by the estimated BMI. ELECTROLYTE Chloride Lvl 97 95 - 109 07/30 MH S [facility] ELECTROLYTE Sodium Lvl 137 135 - 145 07/30 S [facility] ELECTROLYTE Creatinine 1.64 0.50 - 02/25 MH S Lvl 1.40 [facility] ELECTROLYTE Potassium 4.3 3.5 - 5.1 07/30 MH S Lvl /2018 [facility] ELECTROLYTE CO2 36 24 - 32 07/30 S [facility] ELECTROLYTE BUN 66 7 - 22 07/30 MH S [facility] ELECTROLYTE Glucose Lvl 91 70 - 99 07/30 S [facility] ELECTROLYTE Calcium Lvl 8.4 8.5 - 10.5 07/30 S [facility] HEMATOLOGY Lymphocytes 1.3 1.0 - 5.5 07/30 MH # /2018 [facility] HEMATOLOGY Monocytes # 0.8 0.0 - 0.8 07/30 [facility] HEMATOLOGY Basophils 0.6 0.0 - 1.0 07/30 [facility] HEMATOLOGY Neutrophils 3.2 1.5 - 8.1 07/30 MH # /2018 [facility] HEMATOLOGY Lymphocytes 24.1 20.0 - 07/30 MH 40.0 [facility] HEMATOLOGY Segs 59.7 45.0 - 07/30 MH 75.0 [facility] HEMATOLOGY Monocytes 15.3 2.0 - 12.0 07/30 [facility] HEMATOLOGY Eosinophils 0.3 0.0 - 4.0 07/30 [facility] HEMATOLOGY Platelet 220 133 - 450 07/30 [facility] HEMATOLOGY MPV 7.9 7.4 - 10.4 07/30 [facility] HEMATOLOGY WBC 5.4 3.7 - 10.4 07/30 [facility] HEMATOLOGY RBC 4.54 4.20 - 07/30 MH 5.40 [facility] HEMATOLOGY Hgb 12.2 12.0 - 07/30 MH 16.0 [facility] HEMATOLOGY MCHC 31.6 32.0 - 07/30 MH 36.0 [facility] HEMATOLOGY RDW 17.7 11.5 - 07/30 MH 14.5 [facility] HEMATOLOGY MCH 26.9 27.0 - 07/30 MH 31.0 [facility] HEMATOLOGY Hct 38.7 36.0 - 07/30 MH 48.0 [facility] HEMATOLOGY MCV 85.2 80.0 - 07/30 MH 98.0 [facility] ELECTROLYTE AGAP 7.3 10.0 - 07/29 MH S 20. [facility] ELECTROLYTE eGFR 39 07/29 Result MH S Comment: The [facility] eGFR is calculated using the CKD-EPI formula. In most young, healthy individuals the eGFR will be >90 mL/min/1.73m2 . The eGFR declines with age. An eGFR of 60-89 may be normal in some populations, particularly the elderly, for whom the CKD-EPI formula has not been extensively validated. Use of the eGFR is not recommended in the following populations:< br/>
Anay viduals with unstable creatinine concentration s, including patients and those with serious co-morbid conditions.<b r/>
Patie nts with extremes in muscle mass or diet.

The data above are obtained from the National Kidney Disease Education Program (NKDEP) which additionally recommends that when the eGFR is used in patients with extremes of body mass index for purposes of drug dosing, the eGFR should be multiplied by the estimated BMI. ELECTROLYTE CO2 36 24 - 32 07/29 MH S /2018 [facility] ELECTROLYTE Calcium Lvl 8.4 8.5 - 10.5 07/29 MH S /2018 [facility] ELECTROLYTE BUN 62 7 - 22 07/29 MH S /2018 [facility] ELECTROLYTE Potassium 4.3 3.5 - 5.1 07/29 MH S Lvl /2018 [facility] ELECTROLYTE Creatinine 1.62 0.50 - 07/29 MH S Lvl 1.40 /2019 [facility] ELECTROLYTE Sodium Lvl 138 135 - 145 07/29 MH S /2018 [facility] ELECTROLYTE Chloride Lvl 99 95 - 109 07/29 MH S /2018 [facility] ELECTROLYTE Glucose Lvl 85 70 - 99 07/29 MH S /2018 [facility] HEMATOLOGY Lymphocytes 1.2 1.0 - 5.5 / MH # /2019 [facility] HEMATOLOGY Monocytes # 0.7 0.0 - 0.8 07/29 MH /2018 [facility] HEMATOLOGY Baso slight 07/29 MH [place] /2018 [facility] HEMATOLOGY Basophils 0.4 0.0 - 1.0 / MH /2018 [facility] HEMATOLOGY Neutrophils 2.6 1.5 - 8.1 07/29 MH # /2019 [facility] HEMATOLOGY Lymphocytes 26.2 20.0 - 07/29 MH 40.0 /2018 [facility] HEMATOLOGY Monocytes 15.0 2.0 - 12.0 07/29 MH /2018 [facility] HEMATOLOGY Plt Morph Normal 07/29 MH (07/29/18 4:10 AM) /2018 [facility] HEMATOLOGY RBC Morph Normal 07/29 MH (07/29/18 4:10 AM) /2018 [facility] HEMATOLOGY Segs 58.1 45.0 - 07/29 MH 75.0 [facility] HEMATOLOGY Eosinophils 0.3 0.0 - 4.0 07/29 MH /2018 [facility] HEMATOLOGY Hct 38.5 36.0 - 07/29 MH 48.0 [facility] HEMATOLOGY MPV 7.5 7.4 - 10.4 07/29 [facility] HEMATOLOGY Platelet 201 133 - 450 07/29 /2018 [facility] HEMATOLOGY MCHC 32.3 32.0 - 07/29 MH 36.0 [facility] HEMATOLOGY RDW 17.8 11.5 - 07/29 MH 14.5 [facility] HEMATOLOGY Hgb 12.5 12.0 - 07/29 MH 16.0 [facility] HEMATOLOGY RBC 4.61 4.20 - 07/29 MH 5.40 [facility] HEMATOLOGY MCV 83.6 80.0 - 07/29 MH 98.0 [facility] HEMATOLOGY MCH 27.0 27.0 - 07/29 MH 31.0 [facility] HEMATOLOGY WBC 4.5 3.7 - 10.4 07/29 [facility] CHEM PANEL Magnesium 2.1 1.8 - 2.4 07/27 Lvl [facility] CHEM PANEL Magnesium 1.7 1.8 - 2.4 07/26 Lvl [facility] CHEM PANEL Uric Acid 6.6 2.5 - 7.0 07/25 [facility] CHEM PANEL Phosphorus 5.4 2.5 - 4.5 07/25 [facility] CHEM PANEL Magnesium 1.9 1.8 - 2.4 07/25 Lvl [facility] Gram Stain Gram Stain 07/25 Report Performed [facility] By: [facility] Culture: Normal 07/25 Respiratory Respirator /2018 [facility] w/Gram Stain y Riya Isolated CARDIAC Troponin-I <0.02 0.00 - 07/25 ENZYMES 0.40 [facility] URINE AND UA Bili Negative Negative 07/24 STOOL *NA* /2018 [facility] (07/24/18 5:02 PM) URINE AND UA Leuk Est Small Negative 07/24 STOOL *ABN* /2018 [facility] (07/24/18 5:02 PM) URINE AND UA Nitrite Negative Negative 07/24 STOOL (07/24/18 5:02 PM) [facility] URINE AND UA WBC 1 0 - 5 07/24 STOOL [facility] URINE AND UA Sq Epi Few /LPF Few /LPF 07/24 STOOL [facility] URINE AND UA RBC <1 0 - 2 07/24 STOOL [facility] URINE AND UA Mucus Few /LPF None Seen 07/24 STOOL /LPF [facility] URINE AND UA Bacteria Occasional None Seen 07/24 STOOL /HPF /HPF [facility] URINE AND UA Blood Small Negative 07/24 STOOL *ABN* /2018 [facility] (07/24/18 5:02 PM) URINE AND UA <=1.0 0.1 - 1.0 07/24 STOOL Urobilinogen mg/dL [facility] URINE AND UA Hyal Cast 1 0 - 2 07/24 STOOL [facility] URINE AND UA Glucose Negative Negative 07/24 STOOL *NA* [facility] (07/24/18 5:02 PM) URINE AND UA Ketones Negative Negative 07/24 STOOL *NA* [facility] (07/24/18 5:02 PM) URINE AND UA Color Yellow Yellow 07/24 STOOL *NA* [facility] (07/24/18 5:02 PM) URINE AND UA Spec Grav 1.010 <=1.030 07/24 [facility] URINE AND UA Turbidity Slight Clear 07/24 STOOL *ABN* [facility] (07/24/18 5:02 PM) URINE AND UA pH 5.0 5.0 - 8.0 07/24 STOOL [facility] URINE AND UA Protein Negative Negative 07/24 STOOL (07/24/18 5:02 PM) [facility] URINE CHEM U Chloride 101 07/24 [facility] URINE CHEM U Sodium 97 07/24 [facility] URINE CHEM U Potassium 21.5 07/24 [facility] URINE CHEM U Protein 37.8 07/24 [facility] URINE CHEM U Prot/Creat 0.56 07/24 [facility] URINE CHEM U Creatinine 67.40 07/24 [facility] URINE CHEM U Osmolality 461 300 - 800 07/24 [facility] CARDIAC Troponin-I <0.02 0.00 - 07/24 ENZYMES 0.40 [facility] CARDIAC proBNP 1109 0 - 125 07/24 ENZYMES /2018 [facility] CHEM PANEL Procalcitoni 0.22 0.00 - 07/24 n Lvl 0.10 [facility] BACTERIAL - MRSA by PCR Negative 07/24 SEROLOGY (07/24/18 4:47 AM) [facility] CARDIAC Troponin-I <0.02 0.00 - 07/24 ENZYMES 0.40 [facility] CHEM PANEL Bili Total 0.2 0.2 - 1.3 07/24 [facility] CHEM PANEL Total 8.7 6.4 - 8.4 07/24 Protein [facility] CHEM PANEL B/C Ratio 21 6 - 25 07/24 [facility] CHEM PANEL Albumin Lvl 2.9 3.5 - 5.0 07/24 [facility] CHEM PANEL A/G Ratio 0.5 0.7 - 1.6 07/24 [facility] CHEM PANEL AST 21 0 - 37 07/24 [facility] CHEM PANEL ALT 9 0 - 65 07/24 [facility] CHEM PANEL Alk Phos 60 39 - 136 07/24 [facility] CHEM PANEL Globulin 5.8 2.7 - 4.2 07/24 [facility] Pathology Reports No Data Provided for This Section Diagnostic Reports Report Value Date Source Chest 1view DX Clinical Indication: - respiratory distress. 07/29/2018 [facility] Comparison: 07/24/2018. FINDINGS: Portable AP chest radiograph is performed. LUNGS: Normal lung volumes. Increased mild perihilar lung interstitial opacities are seen, suggestive of mild pulmonary edema. Some tiny left midlung zone patchy airspace opacities are seen, which are n onspecific. Unchanged enlarged central pulmonary arteries are seen, suggestive of pulmonary arterial hypertension. No pneumothorax. HEART AND MEDIASTINUM: The heart size is unchanged. There is a mildly tortuous thoracic aorta. The trachea is midline. OSSEOUS STRUCTURES: No acute abnormality seen. IMPRESSION: 1. Increased mild perihilar lung interstitial opacities, suggestive of mild pulmonary edema. Some tiny left midlung zone patchy airspace opacities, which are nonspecific. Unchanged enlarged central pulm onary arteries seen, suggestive of pulmonary arterial hypertension. SL: [id number] Retroperitoneal Complete Patient Name: OLIVER FLOWER 07/24/2018 [facility] US : 1955; Age: 62 years Female MR: [id number] Study: Retroperitoneal Complete US 07/24/2018 9:30 FIELD TRAINER Clinical Indication: - ADOLFO. COMPARISON: None TECHNIQUE: Multiple longitudinal and transverse real time sonographic images of the kidneys and urinary bladder are obtained. Ventilator status, inability to control breath-holding and patient body habitus limits detail. FINDINGS: KIDNEY: The right kidney measures 10.2 x 4.8 x 4.7 cm. The renal cortical thickness measures 1.0 cm. The left kidney measures 10.0 x 5.0 x 3.8 cm. The renal cortical thickness measures 1.0 cm. The kidneys are normal in size, shape, contour, and position. The corticomedullary differentiation is maintained. There is no hydronephrosis. There is no nephrolithiasis. There are no abnormal perinephric collections. BLADDER: Scanning through the pelvis reveals the bladder to be partially distended with anechoic urine. AORTA AND IVC: The visualized portions appear unremarkable. The proximal common iliac arteries are obscured by bowel gas. ASCITES: No ascites noted. IMPRESSION: Normal renal ultrasound. SL: [id number] Chest 1view DX Clinical Indication: - hypoxia. 07/24/2018 [facility] Comparison: 06/05/2012. FINDINGS: Portable AP chest radiograph is performed. LUNGS: Small lung volumes. Mild perihilar pulmonary vascular congestion is seen. Mild bilateral basilar atelectasis/interstitial opacities are seen. Age- related interstitial prominence is seen in the abbey ngs. Suspected small right and tiny left pleural effusions. No pneumothorax. HEART AND MEDIASTINUM: There is unchanged mild cardiomegaly. Unchanged enlarged bilateral central pulmonary arteries are seen. This can be seen with pulmonary arterial hypertension. The trachea is midline. OSSEOUS STRUCTURES: No acute abnormality seen. IMPRESSION: 1. Small lung volumes. Mild perihilar pulmonary vascular congestion. Mild bilateral basilar atelectasis/interstitial opacities. Suspected small right and tiny left pleural effusions. 2. Unchanged mild cardiomegaly. Unchanged enlarged bilateral central pulmonary arteries. This can be seen with pulmonary arterial hypertension. SL: [id number] Ext Lower Venous Doppler Exam: Ext Lower Venous Doppler Bilat US 07/24/2018 [facility] Bilat US Clinical Indication: - possible DVT. Comparison: None. TECHNIQUE: Sonographic evaluation of the bilateral lower extremity veins was performed using high resolution B-mode imaging, along with pulse and color Doppler imaging. FINDINGS: Right lower extremity: The common femoral vein, superficial femoral vein, popliteal vein and visualized posterior tibial/calf veins are patent. There is no echogenic debris to suggest deep venous thrombosis. The saphenofemoral junction is unremarkable. Left lower extremity: The common femoral vein, superficial femoral vein, popliteal vein and visualized posterior tibial/calf veins are patent. There is no echogenic debris to suggest deep venous thrombosis. The saphenofemoral junction is unremarkable. IMPRESSION: 1. No deep venous thrombosis of bilateral lower extremities. REFERENCE: Deep veins include: common femoral vein, superficial femoral vein (also can be referred to as 'femoral vein'), popliteal vein, posterior tibial vein Superficial veins include: greater and lesser saphenous veins SL: MARLON Consultation Notes No Data Provided for This Section Discharge Summaries No Data Provided for This Section History and Physicals No Data Provided for This Section Vital Signs Vital Sign Value Date Comments Source Temperature Oral (F) 98.3 F 08/01/2018 [facility] Heart Rate 81 08/01/2018 [facility] Systolic (mm Hg) 112 08/01/2018 [facility] Diastolic (mm Hg) 73 08/01/2018 [facility] Respitory Rate 18 08/01/2018 [facility] Systolic (mm Hg) 106 08/01/2018 [facility] Diastolic (mm Hg) 65 08/01/2018 [facility] Respitory Rate 22 08/01/2018 [facility] Heart Rate 86 08/01/2018 [facility] Temperature Oral (F) 97.8 F 08/01/2018 [facility] Respitory Rate 18 08/01/2018 [facility] Temperature Oral (F) 98.2 F 08/01/2018 [facility] Heart Rate 69 08/01/2018 [facility] Systolic (mm Hg) 144 08/01/2018 [facility] Diastolic (mm Hg) 81 08/01/2018 [facility] Height 167.64 cm 07/24/2018 [facility] BMI Calculated 37.9 07/24/2018 [facility] Weight 106.5 07/24/2018 [facility] Encounters Location Location Encounter Encounter Reason Attending ADM DC Status Source Details Type Number For Provider Date Date Visit [facility] Inpatient [id number] [employer] 07/24 08/01 Mehul Strauss /2018 [facility] Procedures Procedure Code Date Perfomer Comments Source section [id number] [facility] Assessment and Plan Assessment and Plan Date Source Extracted from:Title: Pulmonary progress note 08/01/2018 [facility] Author: Cory Graf MD Date: 08/01/18 [facility] Care Progress Note Cory Graf MD Subjective/overnight events: No acute events overnight. Patient has been weaned off high flow nasal cannula oxygen. Denies any new constitutional complaints. Eager to go home. Discussed outpatient pulmonary follow-up. Chart reviewed patient examined Review of systems: General: No fever, no chills, no night sweats, no significant pain Respiratory: No dyspnea, no persistent cough, no sputum production, no hemoptysis Cardiac: No chest pain, no palpitations, no lower extremity edema Gastro: No diarrhea, no nausea, no vomiting, no constipation Scheduled Meds (13): 07/24/18 albuterol-ipratropium (albuterol-ipratropium 2.5-0.5 mg inhalation solution) 3 mL NEB RQ6H 07/29/18 allopurinol 100 mg PO Daily 07/29/18 amLODIPine (Norvasc) 5 mg PO Daily 07/29/18 aspirin 81 mg PO Daily 07/28/18 atorvastatin 20 mg PO Bedtime 07/24/18 budesonide 0.5 mg NEB RBID 07/29/18 clopidogrel (Plavix) 75 mg PO Daily 07/29/18 fluticasone nasal (Flonase 0.05 mg/inh nasal spray) 50 microgram NASAL BID 08/01/18 furosemide (Lasix 40 mg oral tablet) 40 mg PO Daily 07/24/18 heparin 5,000 unit SUB-Q Q8H 07/29/18 montelukast (Singulair) 10 mg PO Daily 07/29/18 nebivolol (Bystolic) 5 mg PO Daily 07/27/18 predniSONE 40 mg PO Daily Continuous Infusions: None Labs (Last four charted values) WBC 5.8 (B ) 5.4 (B ) 4.5 (FEB 24) 5.6 (FEB 23) Hgb 12.9 (JUL 31) 12.2 (FEB ) 12.5 (FEB 24 ) 13.4 (FEB 23) Hct 39.0 (FEB 26) 38.7 (FEB 25) 38.5 (FEB 24 ) 43.0 (FEB 23) Plt 250 (FEB 26) 220 (FEB 25) 201 (FEB 24) 218 (FEB 23) Na 138 (FEB 26) 137 (FEB 25) 138 (FEB 24) 137 (FEB 23) K 4.1 (FEB 26) 4.3 (FEB 25) 4.3 (FEB 24) 4.7 (FEB 23) CO2 H 33 (FEB ) H 36 (FEB 25) H 36 (FEB 24 ) H 35 (FEB 23) Cl 97 (B ) 97 (FEB 25) 99 (FEB 24) 97 (FEB 23) Cr H 1.51 (B ) H 1.64 (FEB 25) H 1.62 ( FEB 24) H 1.47 (FEB 23) BUN H 67 (B ) H 66 (FEB 25) H 62 (FEB 24 ) H 55 (FEB 23) Glucose Random 88 (FEB ) 91 (FEB 25) 85 (FEB 24) H 117 (FEB 23) Mg 2.1 (B ) L 1.7 (FEB 21) 1.9 (FEB ) Phos H 5.4 (B ) Ca 9.0 (B ) L 8.4 (FEB 25) L 8.4 (FEB 24) 8.7 (FEB 23) Troponin <0.02 (JUL 24) <0.02 (JUL 24) <0.02 ( JUL 24) Objective: I&O Record In Out Bal 08/01 24hr Tot 0 0 0 07/31 24hr Tot 8 0 8 Lines, Tubes, and Drains: 07/31/2018 10:15 Peripheral Lines: Forearm Left 22 gauge Over the needle catheter 08/01/2018 08:26 Oxygen Therapy Mode Nasal cannula SpO2 percent 96 O2 Sat Location Right hand/finger 07/31/2018 19:56 FIO2 (%) 40 Vital Signs (last 24 hrs) Last Charted Temp Oral 97.8 DegF (FEB 27 08:26) Heart Rate Peripheral 86 bpm (AUG 01:) Resp Rate H 22BRMIN (AUG 01:) SBP 106 mmHg (AUG 01:) DBP 65 mmHg (AUG 01:) SpO2 96 % (AUG 01:) Exam: General: not in any distress, cannula oxygen in place. HEENT: no pallor, anicteric sclera Cardiovascular: regular, no murmur Respiratory: Trace scattered wheezes Abdomen: soft, non-tender, +BS Extremities: no edema, no cyanosis Neurologic: Awake, Nonfocal Skin: no breakdown Problems: Acute on chronic hypoxemic and hypercapneic respiratory failure, improving COPD with exacerbation Possible pulmonary hypertension Diastolic CHF with exacerbation Community acquired pneumonia, treatment complete Mild pulmonary venous congestion CKD Tobacco abuse Hypertension Plan: Continue nasal cannula oxygen as needed to maintain O2 saturation 89-92%, patient back to baseline requirements at home at 3 L/min with acceptable oxygen saturations. Continue diuretics for volume optimization. Some suggestion of pulmonary hypertension with mildly dilated right atrium on TTE as well as findings on chest x-ray, in setting of chronic hypoxia would suspect WHO class III pH, diuresis as above For COPD continue Duonebs, budesonide nebs, and prednisone daily to complete 5 days of therapy Completed course of antibiotics for community acquired pneumonia, complete course of Tamiflu Counseled on tobacco cessation Patient okay to discharge home from pulmonary perspective and will plan to follow-up in outpatient pulmonary clinic. Cory Graf MD Pulmonary and Critical Care Extracted from:Title: Discharge Summary * Author: Sae Chaudhari MD Date: 08/01/18 Discharge Plan Discharge Summary Plan Discharge Status: stable. Discharge instructions given: to patient. Discharge disposition: discharge to home (into the care of family member, self care). Prescriptions: continue same medications, written and given to patient. Diagnosis CKD (chronic kidney disease) (CAD82-GS N18.9, Working, Medical). COPD (FKJ81-KX J44.9, Working, Medical). Diastolic CHF (PHM70-IW I50.30, Working, Medical). HTN (hypertension) (JJL18-SJ I10, Working, Medical). Influenza and pneumonia (XVM47-KH J11.00, Working, Medical). Obesity (CDZ25-QD E66.9, Working, Medical). Smoker (KGW34-YB F17.200, Working, Medical). Course Improving. Education and Follow-up Counseled: patient. Extracted from:Title: Nephrology consultation Author: Osbaldo Chen MD Date: 07/24/18 Impression and Plan 60-year-old female with history of hypertension, COPD, chronic kidney disease, diastolic congestive heart failure, admitted with shortness of breath. 1. Hyperkalemia.Patient was on potassium supplementation and ARB. Patient received initial medical treatment already. We will repeat the potassium level. 2. Hyponatremia. Mild. 3. Acute kidney injury on chronic kidney disease versus chronic kidney disease. Unknown creatinine baseline. 4. Hypercapnic hypoxic respiratory failure. 5. COPD exacerbation. 6. Hypertension. 7. Diastolic congestive heart failure. Recommendations: Renal diet, once patient tolerates p.o. Patient already received medical treatment. We will repeat potassium level. Further recommendation will depend on potassium level. Expected improvement on potassium level since patient was on potassium supplementation and ARB. Lasix 60 mg IV PRN. Hold ARB and potassium supplementation from home medication list. No need for hemodialysis. Urine osmlality, urine electrolytes, urine protein/creat in random sample, UA. Renal US TSH, free T4, uric acid. Drug dose adjustment to GFR. Avoid nephrotoxic medications, NSAID. Any question, please call [phone]. Extracted from:Title: General Admission H&P * Author: Santana Sykes MD Date: 07/24/18 Impression and Plan -Influenza bronchitis with superimposed possible bacterial pneumonia, organism unspecified Tamiflu, IV steroids, duo nebs Cefepime, pharmacy dosing vancomycin -Acute hypercarbic and hypoxic respiratory failure secondary to influenza bronchitis Pulmonary consult BiPAP support -Acute on chronic diastolic dysfunction IV Lasix -Hypertension Resume home medication -Hyperkalemia in the setting of chronic kidney disease stage III-IV She was given Kayexalate, insulin D50 at outside ER Repeat K levels and manage accordingly -Morbid obesity Consult -COPD exacerbation triggered by influenza Treatment as mentioned above DVT prophylaxis with heparin DISPO: ICU Plan of Care No Data Provided for This Section Social History Social History Date Source Social History TypeResponse 07/24/2018 [facility] Smoking Status Current every day smoker; Type: Cigarettes; Ready to change: No; Concerns about tobacco use in household: No; Exposure to Tobacco Smoke None; Cigarette Smoking Last 365 Days Yes; Reg Smoking Cessation Counseling Yes; Tobacco use per day: 1; entered on: 07/24/18 Family History No Data Provided for This Section Advance Directives No Data Provided for This Section Functional Status No Data Provided for This Section
[2019-01-22] MEDS ORDERED: ALBUTEROL 2.5 MG/3 ML NEB SOL ONE (15:43)
[2019-01-22] MEDS ORDERED: IPRATROPIUM BROM 0.5MG/2.5ML ONE (15:43)
[2019-01-22] MEDS ORDERED: METHYLPREDNISOLONE 125 MG INJ ONE (15:43)
--- NOTE | 2019-01-22 16:09 | EKG ---
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
[2019-01-22] MEDS ORDERED: CEFTRIAXONE 1000 MG/VIAL ONE (16:28)
[2019-01-22] MEDS ORDERED: NA CHLORIDE 0.9% 100 ML IV ONE (16:29)
[2019-01-22 16:56] LABS: Absolute Lymphocytes (CBC) 1.3 K/uL (0.7-4.9); Basophils % 0.9 % (0-1.3); Hematocrit 36.3 % (36.0-45.0); Lymphocytes % 9.5 % (15.3-44.8); MPV 7.6 fL (7.6-11.3); RBC Red Blood Cell Count 4.35 M/uL (3.86-4.86)
[2019-01-22 16:58] LABS: Protime INR 1.08
[2019-01-22] MEDS ORDERED: AZITHROMYCIN IV 500 MG in NA CHLORIDE 0.9% 250 ML IVPB ONE (17:00)
--- NOTE | 2019-01-22 17:02 | RAD REPORT ---
EXAM DESCRIPTION: RAD - Chest Single View - 01/22/2019 4:23 pm CLINICAL HISTORY: COPD, shortness of breath, right-sided chest and rib pain COMPARISON: CT chest August 2018, portable chest July 2018 TECHNIQUE: AP portable chest image was obtained 1619 hours . FINDINGS: Lung volumes are low. Patchy opacification is seen in the lateral right lung base. Lung ba se findings are not substantially different from the August examination. However, an early or mild pne umonia would be possible. Patient has a large pulmonary arteries matching the CT study. Overall heart size is normal. Upper lobe vasculature within normal limits. Minimal nodularity right suprahilar reg ion matches up with a vascular structure on the prior CT study. No pneumothorax. Small pleural effusi ons are certainly possible. Lung markings are relatively prominent. Failure or volume overload are ce rtainly possible. No acute bony abnormality seen. No acute aortic findings suspected. IMPRESSION: Patchy right base opacification is not substantially different from August CT study. Mini mal or early pneumonia is still a possibility. Interstitial markings overall are prominent and could reflect a mild failure or volume overload. Enlarged pulmonary arteries again noted.
[2019-01-22 17:16] LABS: ALT/SGPT 10 U/L (12-78); AST/SGOT 7 U/L (15-37); Albumin 3.4 g/dL (3.4-5.0); Alkaline Phosphatase 77 U/L (45-117); BUN Blood Urea Nitrogen 24 mg/dL (7-18); Bicarbonate 26 mmol/L (21-32); Bilirubin Direct 0.1 mg/dL (0-0.2); Bilirubin Total 0.3 mg/dL (0.2-1.0); Glucose Level 115 mg/dL (74-106); Lipase 42 U/L (73-393); Magnesium 1.9 mg/dL (1.8-2.4); NT PRO-BNP 1649 pg/mL (<125); Potassium 4.6 mmol/L (3.5-5.1); Protein, Total 10.3 g/dL (6.4-8.2); Sodium Level 137 mmol/L (136-145); Troponin (Emerg Dept Use Only) < 0.02 ng/mL (0.0-0.045)
--- NOTE | 2019-01-22 17:25 | EDPHYS ---
Physician Documentation [facility] Name: Deanna Flores Age: 63 yrs Sex: Female : 1955 Arrival Date: 01/22/2019 Time: 15:22 Bed 3 Private MD: Francisco Javier Shaffer ED Physician Nadir Akins HPI: 01/22 15:39 This 63 yrs old Black Female presents to ER via Ambulatory with complaints of Breathing pm1 Difficulty. 15:43 The patient has shortness of breath at rest. Onset: The symptoms/episode began/occurred pm1 last night. Duration: The symptoms are continuous. The patient's shortness of breath is aggravated by nothing, is alleviated by nothing, last used breathing treatment yesterday. Associated signs and symptoms: Pertinent negatives: chest pain, non-productive cough, productive cough, fever, nausea, vomiting. Severity of symptoms: in the emergency department the symptoms are worse. The patient has experienced similar episodes in the past, chronically, patient uses 3.5L NC at home. CPAP machine at home that she is not compliant with. The patient has not recently seen a physician, PCP Deena, Pulmonology Aurelia, Cardiology Christopher, Nephrology Erum. 15:43 Right lower rib pain that hurts with deep breathing. pm1 Historical: - Allergies: 15:28 Codeine; hj 15:28 Sulfa (Sulfonamide Antibiotics); hj - PMHx: 15:28 "enlarged heart"; CHF; COPD; Gout; Hyperlipidemia; Hypertension; hj - PSHx: 15:28 ; hj - Immunization history:: Adult Immunizations up to date. - Social history:: Smoking status: Patient/guardian denies using tobacco. - Ebola Screening: : No symptoms or risks identified at this time. ROS: 15:43 Constitutional: Negative for fever, chills, and weight loss, Eyes: Negative for injury, pm1 pain, redness, and discharge, ENT: Negative for injury, pain, and discharge, Neck: Negative for injury, pain, and swelling, Cardiovascular: Negative for chest pain, palpitations, and edema. Right lower rib pain 15:43 Abdomen/GI: Negative for abdominal pain, nausea, vomiting, diarrhea, and constipation, Back: Negative for injury and pain, : Negative for injury, bleeding, discharge, and swelling, MS/Extremity: Negative for injury and deformity, Skin: Negative for injury, rash, and discoloration, Neuro: Negative for headache, weakness, numbness, tingling, and seizure. 15:43 Respiratory: Positive for shortness of breath, Negative for cough, sputum production, wheezing. Exam: 15:43 Constitutional: This is a well developed, well nourished patient who is awake, alert, pm1 and in no acute distress. Head/Face: Normocephalic, atraumatic. Eyes: Pupils equal round and reactive to light, extra-ocular motions intact. Lids and lashes normal. Conjunctiva and sclera are non-icteric and not injected. Cornea within normal limits. Periorbital areas with no swelling, redness, or edema. ENT: Nares patent. No nasal discharge, no septal abnormalities noted. Tympanic membranes are normal and external auditory canals are clear. Oropharynx with no redness, swelling, or masses, exudates, or evidence of obstruction, uvula midline. Mucous membranes moist. Neck: Trachea midline, no thyromegaly or masses palpated, and no cervical lymphadenopathy. Supple, full range of motion without nuchal rigidity, or vertebral point tenderness. No Meningismus. Chest/axilla: Normal chest wall appearance and motion. Nontender with no deformity. No lesions are appreciated. 15:43 Abdomen/GI: Soft, non-tender, with normal bowel sounds. No distension or tympany. No guarding or rebound. No evidence of tenderness throughout. Back: No spinal tenderness. No costovertebral tenderness. Full range of motion. Skin: Warm, dry with normal turgor. Normal color with no rashes, no lesions, and no evidence of cellulitis. MS/ Extremity: Pulses equal, no cyanosis. Neurovascular intact. Full, normal range of motion. 15:43 Cardiovascular: Rate: tachycardic, Rhythm: regular, Edema: is not appreciated. 15:43 Respiratory: mild respiratory distress is noted, Breath sounds: decreased breath sounds, are scattered. 15:43 Neuro: Orientation: is normal, Mentation: is normal, Motor: is normal, moves all fours, Sensation: is normal, no obvious gross deficits. Vital Signs: 15:28 BP 162 / 72; Pulse 93; Resp 28; Temp 99.0(O); Pulse Ox 70% on 3.5 lpm NC; Weight 113.4 hj kg; Height 5 ft. 6 in. (167.64 cm); Pain 4/10; 18:12 BP 152 / 95; Pulse 107; Resp 18; Pulse Ox 98% ; bp 19:35 BP 171 / 78; Pulse 96; Resp 26 S; Temp 98(A); Pulse Ox 96% on 50% BiPAP; bb 15:28 Body Mass Index 40.35 (113.40 kg, 167.64 cm) Procedures: 17:59 Peripheral line: by aseptic technique a peripheral line was placed in the right rn antecubital vein, Placed by Dr. Akins, single stick, good return and painless flush. Tolerated well. . MDM: 15:39 Patient medically screened. pm1 16:10 ED course: Patient agreed to finally remove her girdle. Patient did not want to remove pm1 it on initial presentation despite telling her that it can be a cause or exacerbating her shortness of breath. 16:27 ED course: Patient reports improvement with breathing treatment, but staurations in pm1 upper 70s to low 80s. Therefore BIPAP ordered. 16:37 Data reviewed: vital signs. Counseling: I had a detailed discussion with the patient pm1 and/or guardian regarding: the historical points, exam findings, and any diagnostic results supporting the discharge/admit diagnosis, radiology results, the need for further work-up and treatment in the hospital. 17:27 ED course: Lactate elevated at 2.2. Pending procalcitonin. Will give IV fluid bolus 500 pm1 mL. Will not give the patient 30mL/kg bolus due to patient history of CHF. . 17:35 Physician consultation: Bishop Serrano MD was called at 17:35, was contacted at 17:35, pm1 regarding admission, patient's condition, and will see patient. 18:33 ED course: Pt bent arm and blew right AC IV. A second 22g IV placed by lyric Calvert rn blood return and painless flush. Left arm placed in arm board for protection.. 01/22 15:39 Order name: Basic Metabolic Panel; Complete Time: 17:22 bp 01/22 15:39 Order name: CBC with Diff; Complete Time: 17:10 bp 01/22 15:39 Order name: LFT's; Complete Time: 17:22 bp 01/22 15:39 Order name: Magnesium; Complete Time: 17:22 bp 01/22 15:39 Order name: NT PRO-BNP; Complete Time: 17:22 bp 01/22 15:39 Order name: PT-INR; Complete Time: 17:10 bp 01/22 15:39 Order name: Troponin (emerg Dept Use Only); Complete Time: 17:22 bp 01/22 15:39 Order name: XRAY Chest (1 view); Complete Time: 18:17 bp 01/22 15:39 Order name: Lipase; Complete Time: 17:22 bp 01/22 15:45 Order name: Blood Culture Adult (2) pm1 01/22 15:45 Order name: Procalcitonin; Complete Time: 17:32 pm1 01/22 15:45 Order name: Lactate; Complete Time: 17:22 pm1 01/22 16:25 Order name: ABG; Complete Time: 18:17 pm1 01/22 16:48 Order name: Flu pm1 01/22 15:39 Order name: EKG; Complete Time: 15:41 bp 01/22 15:39 Order name: Cardiac monitoring; Complete Time: 15:39 bp 01/22 15:39 Order name: EKG - Nurse/Tech; Complete Time: 15:45 bp 01/22 15:39 Order name: IV Saline Lock; Complete Time: 19:01 bp 01/22 15:39 Order name: Labs collected and sent; Complete Time: 19:01 bp 01/22 15:39 Order name: O2 Per Protocol; Complete Time: 15:39 bp 01/22 15:39 Order name: O2 Sat Monitoring; Complete Time: 15:39 bp 01/22 16:25 Order name: BIPAP pm1 Administered Medications: 15:45 Drug: DuoNeb (3:1) (2.5 mg - 0.5 mg) 3 ml Route: Nebulizer; bp 16:11 Follow up: Response: Marked relief of symptoms bp 18:07 Drug: SOLU-Medrol 125 mg Route: IVP; Site: right antecubital; bp 18:08 Follow up: Response: No adverse reaction bp 18:07 Drug: Rocephin 1 grams Route: IV; Rate: calculated rate; Site: right antecubital; bp 18:13 Follow up: IV Status: Completed infusion; IV Intake: 10ml bp 19:38 Drug: Zithromax 500 mg Route: IVPB; Infused Over: 1 hrs; Site: left upper arm; bb 20:03 Follow up: IV Status: Infusion continued upon admission bb 19:38 Drug: NS 0.9% 500 ml Volume: 500 ml; Route: IV; Rate: 1 bolus; Site: left upper arm; bb 20:02 Follow up: IV Status: Completed infusion bb Disposition: 01/23 07:11 Co-signature as Attending Physician, Nadir Akins MD. rn Disposition: 01/22/19 17:23 Hospitalization ordered by Bishop Serrano for Inpatient Admission. Preliminary diagnosis is Pneumonia, unspecified organism. - Bed requested for Telemetry/MedSurg (Inpatient). - Status is Inpatient Admission. bb - Condition is Stable. - Problem is new. - Symptoms have improved. UTI on Admission? No Signatures: Dispatcher [employer] EDRohini Earl RN RN dw Patti Wright RN RN bb Nieto, Roman, MD MD rn Joaquin, Henry, RN RN Saul Madera, MARY CAREER SERVICES REPRESENTATIVE pm1 Landry Glover RN RN bp Corrections: (The following items were deleted from the chart) 01/22 18:28 17:23 Hospitalization Ordered by Bishop Serrano MD for Inpatient Admission. Preliminary dw diagnosis is Pneumonia, unspecified organism. Bed requested for Telemetry/MedSurg (Inpatient). Status is Inpatient Admission. Condition is Stable. Problem is new. Symptoms have improved. UTI on Admission? No. pm1 20:24 18:28 01/22/2019 17:23 Hospitalization Ordered by Bishop Serrano MD for Inpatient bb Admission. Preliminary diagnosis is Pneumonia, unspecified organism. Bed requested for Telemetry/MedSurg (Inpatient). Status is Inpatient Admission. Condition is Stable. Problem is new. Symptoms have improved. UTI on Admission? No. dw
--- NOTE | 2019-01-22 17:25 | ER ---
Nurse's Notes [facility] Name: Deanna Flores Age: 63 yrs Sex: Female : 1955 Arrival Date: 01/22/2019 Time: 15:22 Bed 3 Private MD: Francisco Javier Shaffer Diagnosis: Pneumonia, unspecified organism Presentation: 01/22 15:24 Presenting complaint: Patient states: last night, i started having R side pain on my hj rib cage area, that made me hold my breath and makes me hard to breathe, reports using O2 at home at 3.5 L/min; denies chest pain, denies F/C; denies N/V; on triage pt is assessed with labored breathing but able to talk and A\\T\\O x3 with bluish nails; provider informed; EKG and respiratory paged;. Transition of care: patient was not received from another setting of care. Onset of symptoms was January 22, 2019. Risk Assessment: Do you want to hurt yourself or someone else? Patient reports no desire to harm self or others. Initial Sepsis Screen: Does the patient meet any 2 criteria? No. Patient's initial sepsis screen is negative. Does the patient have a suspected source of infection? No. Patient's initial sepsis screen is negative. Care prior to arrival: None. 15:24 Method Of Arrival: Ambulatory 15:24 Acuity: JUDI 2 Triage Assessment: 15:30 General: Appears in no apparent distress. comfortable, Behavior is cooperative, bp appropriate for age, anxious. Pain: Complains of pain in chest. EENT: No deficits noted. Neuro: No deficits noted. Cardiovascular: No deficits noted. Respiratory: Reports shortness of breath at rest Onset: The symptoms/episode began/occurred yesterday, the patient has moderate shortness of breath. GI: No signs and/or symptoms were reported involving the gastrointestinal system. : No signs and/or symptoms were reported regarding the genitourinary system. Derm: No deficits noted. Musculoskeletal: No deficits noted. Historical: - Allergies: 15:28 Codeine; 15:28 Sulfa (Sulfonamide Antibiotics); hj - PMHx: 15:28 "enlarged heart"; CHF; COPD; Gout; Hyperlipidemia; Hypertension; hj - PSHx: 15:28 ; hj - Immunization history:: Adult Immunizations up to date. - Social history:: Smoking status: Patient/guardian denies using tobacco. - Ebola Screening: : No symptoms or risks identified at this time. Screenin:36 Abuse screen: Denies threats or abuse. Denies injuries from another. Nutritional bp screening: No deficits noted. Tuberculosis screening: No symptoms or risk factors identified. Fall Risk None identified. Assessment: 15:30 General: SEE TRIAGE NOTE. Cardiovascular: Rhythm is sinus rhythm. Respiratory: Airway bp is patent Respiratory effort is labored, Breath sounds with wheezes bilaterally. 16:10 Reassessment: UNABLE TO OBTAIN PIV, PROVIDER NOTIFIED. bp 17:31 Reassessment: UNABLE TO GAIN U/S GUIDED PIV DUE TO PT MOVEMENT. PROVIDER INFORMED. bp 18:00 Reassessment: U/S PIV PLACED BY ATTENDING. bp 18:12 Reassessment: PIV INFILTRATED, ADMIT MD AND PROVIDER NOTIFIED. bp 18:41 Reassessment: NEW PIV PLACED BY ATTENDING. bp 19:30 Reassessment: Mindy Camargo RN at bedside for placement of mid-line. bb 19:35 Reassessment: pt is A\\T\\O x 4, resp tachypneic, Bipap in place, pt states she is feeling bb better, bilateral breath sounds clear to auscultation, awaiting room assignment. 20:01 Reassessment: Mindy Sena RN at bedside for lab draw of repeat Lactate. Reassessment: No bb changes from previously documented assessment. Vital Signs: 15:28 BP 162 / 72; Pulse 93; Resp 28; Temp 99.0(O); Pulse Ox 70% on 3.5 lpm NC; Weight 113.4 hj kg; Height 5 ft. 6 in. (167.64 cm); Pain 4/10; 18:12 BP 152 / 95; Pulse 107; Resp 18; Pulse Ox 98% ; bp 19:35 BP 171 / 78; Pulse 96; Resp 26 S; Temp 98(A); Pulse Ox 96% on 50% BiPAP; bb 15:28 Body Mass Index 40.35 (113.40 kg, 167.64 cm) ED Course: 15:22 Patient arrived in ED. mr 15:22 Francisco Javier Shaffer MD is Private Physician. mr 15:27 Triage completed. hj 15:28 Arm band placed on left wrist. hj 15:32 Saul Madera, MARY is PHCP. pm1 15:32 Nadir Akins MD is Attending Physician. pm1 15:32 Landry Glover, ARELI is Primary Nurse. bp 15:36 Patient has correct armband on for positive identification. Bed in low position. Call bp light in reach. Side rails up X2. 15:59 EKG done, by survey technician. reviewed by Saul Madera NP. 3 16:01 Radiology exam delayed due to IV insertion attempt and/or patient not having az appropriate IV at this time. 16:22 XRAY Chest (1 view) In Process Unspecified. EDMS 17:15 Missed attempt(s): 20 gauge in left antecubital area. Bleeding controlled, band aid iw applied, catheter tip intact. 17:23 Bishop Serrano MD is Hospitalizing Provider. pm1 18:00 Inserted saline lock: 20 gauge in right antecubital area, using aseptic technique. aa5 [address]pleted [address] Akins (US guided IV). 18:13 IV discontinued. bp 19:35 Inserted 18 gauge 10 cm midline to left upper brachial vein on first attempt. Line with fc good blood return and flushes well. 20:00 No provider procedures requiring assistance completed. Patient admitted, IV remains in bb place. Administered Medications: 15:45 Drug: DuoNeb (3:1) (2.5 mg - 0.5 mg) 3 ml Route: Nebulizer; bp 16:11 Follow up: Response: Marked relief of symptoms bp 18:07 Drug: SOLU-Medrol 125 mg Route: IVP; Site: right antecubital; bp 18:08 Follow up: Response: No adverse reaction bp 18:07 Drug: Rocephin 1 grams Route: IV; Rate: calculated rate; Site: right antecubital; bp 18:13 Follow up: IV Status: Completed infusion; IV Intake: 10ml bp 19:38 Drug: Zithromax 500 mg Route: IVPB; Infused Over: 1 hrs; Site: left upper arm; bb 20:03 Follow up: IV Status: Infusion continued upon admission bb 19:38 Drug: NS 0.9% 500 ml Volume: 500 ml; Route: IV; Rate: 1 bolus; Site: left upper arm; bb 20:02 Follow up: IV Status: Completed infusion bb Intake: 18:13 IV: 10ml; Total: 10ml. bp Outcome: 17:23 Decision to Hospitalize by Provider. pm1 20:01 Admitted to Tele accompanied by tech, via stretcher, room 407, with oxygen, with chart, bb Report called to Oxana SINGLETON 20:01 Condition: stable 20:01 Instructed on the need for admit. 20:24 Patient left the ED. lyudmila Signatures: Dispatcher [employer] PETER Yi BassMindy, RN Patti Staples RN RN Natasha Ace, RN Ingris Ortega RN RN aa5 Juan Grimm RN ARELI hj Saul Madera, MARY ECHOCARDIOGRAPHY TECH pm1 Landry Glover RN RN Emilia Dupree 3 Renu Almonte Corrections: (The following items were deleted from the chart) 15:45 15:24 Presenting complaint: Patient states: last night, i started having R side pain on hj my rib cage area, that made me hold my breath and makes me hard to breathe, reports using O2 at home at 3.5 L/min; denies chest pain, denies F/C; denies N/V; hj 18:12 18:06 Reassessment: U/S PIV PLACED BY ATTENDING bp bp
[2019-01-22 17:26] LABS: Arterial Blood Carboxyhemoglob 1.1 % (0-1.5); Blood Gas Oxyhemoglobin 84.9 % (94-97); Blood O2 Saturation 86.7 % (92-98.5)
[2019-01-22] MEDS ORDERED: NA CHLORIDE 0.9% 500 ML ONE (19:40)
[2019-01-22] MEDS ORDERED: ONDANSETRON 4 MG/2 ML VIAL IV PRN (20:43)
[2019-01-22] MEDS: IPRATROPIUM BROM 0.5MG/2.5ML NEB SCH (21:30)
[2019-01-22] MEDS: ALBUTEROL 2.5 MG/3 ML NEB SOL NEB SCH (21:30)
--- NOTE | 2019-01-23 02:57 | HP ---
Date of Admission: 01/22/2019 Chief Complaint: Shortness of breath, rib pain. Primary Care Physician: Dr. Kennedy. Consultants: Dr. Moses with Pulmonology. Code Status: Do not intubate. Daughter at bedside History Of Present Illness: Patient is a 63-year-old female with past medical history of congestive heart failure, COPD, gout, hyperlipidemia, hypertension, who was in her usual state of health until day prior to admission when the patient had sudden onset of shortness of breath along with some pain in her ribs with deep breath. Patient otherwise denies any chest pain, cough, nausea, vomiting, fever, chills. Patient does use oxygen at home, she is on 3.5 L; however, is noncompliant with her CPAP machine. Patient denies any alleviating factors. Patient's symptoms are constant, moderate, progressively worsening. Therefore, she came into the ER for further evaluation. In the ER, she was found to be hypoxic with O2 saturations of 70%, as low as 55%. She was placed on 4 L, nebulizer treatment was given and improved to the 80s. Patient was then placed on BiPAP. Her workup revealed elevated white blood cell count of 13.4 with left shift. Patient's lactate was elevated and her blood gas showed a pH of 7.34, pCO2 was 48, and pO2 was 58. Patient was started on IV antibiotics and referred for admission. Chest x-ray showed pneumonia on the right base. Past Medical History: Congestive heart failure, COPD, gout, hyperlipidemia, hypertension. Surgical History: . Allergies: TO CODEINE AND SULFA. Medications: List reviewed. Social History: Patient states that she quit smoking. Does have a longstanding history of nicotine use. Denies any alcohol. Lives at home. Independent in her activities of daily living. No illicit drug use. Family History: Negative for any premature coronary artery disease. Review of Systems: Ten-point system reviewed, negative except as per HPI. Physical Examination: Vital Signs: Blood pressure 162/72, pulse 93, respirations 28, temperature 99, O2 70% on 3.5 L nasal cannula. BMI is 40. HEENT: Normocephalic, atraumatic. PERRLA. EOMI. Moist mucous membranes. Oropharynx is clear conjunctivae are anicteric. Neck: Supple. No JVD. Trachea midline. CV: S1, S2. Sinus tachycardia. Peripheral pulses present. Respiratory: Diminished breath sounds. Patient is tachypneic with use of accessory muscles. No wheezing. Gastrointestinal: Abdomen is soft, nontender, nondistended. Positive bowel sounds. No guarding or rigidity. Extremities: No clubbing, cyanosis. Patient has trace pedal edema. No calf tenderness. Neurologic: Cranial nerves 2-12 intact grossly. No focal neurological deficit. Speech is normal. Skin: No rashes. Normal skin turgor. Capillary refill less than 2 seconds. Psychiatric: Mood is okay. Affect is full. Insight and judgment are good. General: Awake, alert, oriented x3, in some mild respiratory distress. Ill- appearing female. Laboratory Data: Sodium 137, potassium 4.6, chloride 103, CO2 26, BUN 24, creatinine 1.48, glucose 115, lactate 2.2, calcium 9.2, magnesium 1.9. Procalcitonin 0.1. WBC 13.4, H and H 11.2 and 36.3, platelets 369, neutrophils 84%. INR 1.08. ABG; pH is 7.34, pCO2 48.6, pO2 is 58, bicarb 25. Influenza screen is pending. Chest x-ray shows patchy right base opacification, not substantially different from August CT study, minimal or early pneumonia still a possibility. Interstitial markings overall are prominent, could reflect a mild failure or volume overload and large pulmonary arteries again noted. Personally reviewed EKG shows normal sinus rhythm, rate of 96, no significant change compared to previous. Assessment: A 63-year-old female with: 1. Acute on chronic respiratory failure with hypercapnia and hypoxia. Patient improving on BiPAP, initially was in the 70s on 3.5 L, likely secondary to pneumonia, possible congestive heart failure and chronic obstructive pulmonary disease. We will obtain pulmonology consultation. 2. Right lower lobe pneumonia. We will continue with IV antibiotics. Patient does have elevated white count, elevated lactate level. We will obtain blood cultures and sputum culture. Repeat chest x-ray as clinically indicated. 3. History of congestive heart failure, unknown ejection fraction, likely diastolic dysfunction. We will continue with fluid restriction. Monitor I's and O's and resume home medications as appropriate. 4. Chronic obstructive pulmonary disease, chronic bronchitis, oxygen dependent. Continue with nebulizer treatments. Patient received steroids in the ER. 5. Mixed hyperlipidemia. We will continue statin. 6. Chronic kidney disease stage 3. Creatinine is around baseline. We will continue to monitor and avoid NSAIDs. 7. Morbid obesity. BMI of 40. 8. Patient does have sleep apnea, but is noncompliant with CPAP. 9. Noncompliance. 10. Deep venous thrombosis prophylaxis with Lovenox, renally dosed. Plan: Admit patient to Med-Surg, place as inpatient. Length of stay is greater than 2 midnights. LIV Voice ID: [id number]
[2019-01-23] MEDS: ALBUTEROL 2.5 MG/3 ML NEB SOL NEB SCH ×3 (03:15→07:49)
[2019-01-23] MEDS: IPRATROPIUM BROM 0.5MG/2.5ML NEB SCH ×5 (03:15→20:00)
[2019-01-23 04:41] LABS: Absolute Lymphocytes (CBC) 0.5 K/uL (0.7-4.9); Basophils % 0.1 % (0-1.3); Hematocrit 31.9 % (36.0-45.0); Lymphocytes % 4.6 % (15.3-44.8); MPV 7.3 fL (7.6-11.3); RBC Red Blood Cell Count 3.79 M/uL (3.86-4.86)
[2019-01-23 05:05] LABS: Potassium 4.8 mmol/L (3.5-5.1)
[2019-01-23 05:29] LABS: Blood Morphology Comment NOT SEEN (NOT SEEN); Platelet Estimate ADEQ; Urine White Blood Cell Casts OK
[2019-01-23] MEDS: CEFTRIAXONE/SWI 1gm 1 GM/10 ML SYR IV SCH ×2 (07:28→20:36)
--- NOTE | 2019-01-23 08:37 | P.CNS ---
Date of Consult: 01/23/19 Chief Complaint: Shortness of breath right-sided pleuritic chest pain History of Present Illness: Patient is 63 years of age with a history of COPD and presumed lung cancer admitted with sudden onset of shortness of breath and right-sided pleuritic chest pain denies any fever chills has a cough history of tobacco abuse history of sleep apnea noncompliant abnormal chest x-ray hypoxic hypercapnic Allergies codeine Allergy (Verified 01/22/19 20:01) Anaphylaxis Penicillins Allergy (Verified 01/23/19 02:30) Anaphylaxis Sulfa (Sulfonamide Antibiotics) Allergy (Verified 01/22/19 20:01) Anaphylaxis Home Medications: Albuterol Sulfate [Proair Hfa] 8.5 gm IH Q4HP PRN 01/23/19 Allopurinol 100 mg PO DAILY 01/23/19 Amlodipine [Norvasc] 5 mg PO DAILY 01/23/19 Aspirin Chewable [Aspirin Chewable*] 81 mg PO DAILY 01/23/19 Atorvastatin Calcium [Lipitor] 20 mg PO BEDTIME 01/23/19 Cetirizine HCl 10 mg PO DAILY 01/23/19 Cholecalciferol (Vitamin D3) [Vitamin D3] 2,000 unit PO DAILY 01/23/19 Clopidogrel Bisulfate [Plavix] 75 mg PO DAILY 01/23/19 Fluticasone [Flonase 50mcg Nasal [place]] 2 sprays NS DAILY 01/23/19 Fluticasone/Umeclidin/Vilanter [Trelegy Ellipta 100-62.5-25] 1 inh IH DAILY Montelukast Sodium [Singulair] 10 mg PO BEDTIME 01/23/19 Nebivolol HCl [Bystolic*] 5 mg PO DAILY 01/23/19 Torsemide 5 mg PO DAILY 01/23/19 - Past Medical/Surgical History Diabetic: No -: CHF -: COPD -: Gout -: Hyperlipidemia -: HTN -: Csection - Family History Father Medical History: Cancer Mother Medical History: Cancer - Social History Smoking Status: Current every day smoker Alcohol use: No CD- Drugs: No Caffeine use: Yes Place of Residence: Home Review of Systems General: Weakness Respiratory: Cough, Shortness of Breath Cardiovascular: Chest Pain Physical Examination Temp Pulse Resp BP Pulse Ox 97.0 F 91 H 18 154/72 H 100 01/23/19 04:00 01/23/19 04:00 01/23/19 04:00 01/23/19 04:00 01/23/19 04:00 General: Alert, In no apparent distress, Oriented x3 Neck: Supple Respiratory: Clear to auscultation bilaterally, Diminished Cardiovascular: No edema, Regular rate/rhythm, Normal S1 S2 Gastrointestinal: Normal bowel sounds, Soft and benign Musculoskeletal: No clubbing, No contractures Integumentary: No rashes, No breakdown Laboratory Data (last 24 hrs) 01/22/19 16:40: PT 12.7 H, INR 1.08 01/22/19 16:40: WBC 13.4 H, Hgb 11.2 L, Hct 36.3, Plt Count 369 01/22/19 16:40: Sodium 137, Potassium 4.6, BUN 24 H, Creatinine 1.48 H, Glucose 115 H, Magnesium 1.9, Total Bilirubin 0.3, AST 7 L, ALT 10 L, Alkaline Phosphatase 77, Lipase 42 L - Problems (1) Pleuritic chest pain Current Visit: Yes Status: Acute Plan: Patient is 63 years of age admitted with acute onset of pleuritic chest pain worsening dyspnea history of COPD sleep apnea presumed lung cancer on the left side patient refused workup very claustrophobic unable to do a PET scan refused biopsy she has hypoxic hypercapnic white count is mildly elevated chronic renal failure blood pressure elevated patient on nasal cannula oxygen chest x-ray shows a questionable infiltrate in the right lower lobe of not shows any change from a prior CT scan important to exclude thromboembolism of ordered a V/Q scan lower extremity Doppler 2D echo patient is on Lovenox continue with bronchodilators
[2019-01-23] MEDS: CETIRIZINE HCL 5 MG TABLET PO SCH (08:39)
[2019-01-23] MEDS: ASPIRIN 81 MG CHEWABLE TABLET PO SCH (08:40)
[2019-01-23] MEDS: AMLODIPINE 5 MG TAB PO SCH (08:40)
[2019-01-23] MEDS: CLOPIDOGREL 75 MG TABLET PO SCH (08:40)
[2019-01-23] MEDS: ALLOPURINOL 100 MG TAB PO SCH (08:40)
[2019-01-23] MEDS: NEBIVOLOL HCL 5 MG TAB PO SCH (08:41)
[2019-01-23] MEDS: ARFORMOTEROL TARTRATE 15 MCG/2 ML VIAL.NEB NEB SCH ×2 (08:56→20:00)
[2019-01-23] MEDS ORDERED: TORSEMIDE 5 MG PO SCH (09:00)
[2019-01-23] MEDS ORDERED: CEFTRIAXONE 1 GM/NS 50 ML 1 GM/50 ML BAG IV SCH (09:00)
[2019-01-23] MEDS ORDERED: HOME MED 1 EA UNK (Fluticasone/Umeclidin/Vilanter [Trelegy Ellipta 100-62.5-25] 1 INH) IH SCH (09:00)
[2019-01-23] MEDS ORDERED: ENOXAPARIN 60 MG/0.6 ML SQ SCH (09:00)
[2019-01-23] MEDS: predniSONE 20 MG TAB PO SCH ×2 (10:07→20:26)
[2019-01-23] MEDS: AZITHROMYCIN 250 MG TAB PO SCH (10:07)
--- NOTE | 2019-01-23 11:03 | RAD REPORT ---
EXAM DESCRIPTION: CT - Thorax Wo Con CLINICAL HISTORY: Chest pain poss pneumonia COMPARISON: Thorax Wo Con dated 08/24/2018; Chest Single View dated 01/22/2019 FINDINGS: Mild emphysema is present throughout the lungs. Linear opacities are present in both lung bases, greater on the right likely representing bibasilar pneumonia. Air bronchograms are seen. No pl eural thickening or pleural effusion. No pneumothorax. No axillary, mediastinal or hilar adenopathy. No concerning bony finding. No gross upper abdominal finding. All CT scans are performed using dose optimization technique as appropriate and may include automated exposure control or mA/KV adjustment according to patient size. IMPRESSION: Bibasilar pulmonary infiltrates are suspected, greater on the right, likely representing pneumonia.
[2019-01-23] MEDS: FLUTICASONE 50MCG NASAL SPRAY NAS SCH (11:15)
--- NOTE | 2019-01-23 11:59 | ECHO ---
HEIGHT: 5 ft 6 in WEIGHT: 250 lb 0 oz DATE OF STUDY: 01/23/[address]: Andrea Moses MD 2-DIMENSIONAL: YES M.MODE: YES DOPPLER: YES COLOR FLOW: YES TDS: NO PORTABLE: NO DEFINITY: NO BUBBLE STUDY: NO DIAGNOSIS: RESPIRATORY FAILURE CARDIAC HISTORY: CATHERIZATION: NO SURGERY: NO PROSTHETIC VALVE: NO PACEMAKER: NO MEASUREMENTS (cm) DIASTOLIC (NORMALS) SYSTOLIC (NORMALS) IVSd 1.2 (0.6-1.2) LA Diam 3.7 (1.9-4.0) LVEF 60-69% LVIDd 5.2 (3.5-5.7) LVIDs 2.9 (2.0-3.5) %FS 45% LVPWd 1.4 (0.6-1.2) Ao Diam 3.1 (2.0-3.7) 2 DIMENSIONAL ASSESSMENT: RIGHT ATRIUM: NORMAL LEFT ATRIUM: NORMAL RIGHT VENTRICLE: NORMAL LEFT VENTRICLE: LEFT VENTRICULAR HYPERTROPHY TRICUSPID VALVE: NORMAL MITRAL VALVE: NORMAL PULMONIC VALVE: NORMAL AORTIC VALVE: NORMAL PERICARDIAL EFFUSION: NONE AORTIC ROOT: NORMAL LEFT VENTRICULAR WALL MOTION: NORMAL DOPPLER/COLOR FLOW: IMPAIRED LEFT VENTRICULAR RELAXATION. COMMENTS: NORMAL LEFT VENTRICULAR EJECTION FRACTION. LEFT VENTRICULAR HYPERTROPHY. IMPAIRED LEFT VENTRICULAR RELAXATION. TECHNOLOGIST: Woody YATES
[2019-01-23] MEDS: ALBUTEROL 2.5 MG/3 ML NEB SOL NEB PRN (13:58)
--- NOTE | 2019-01-23 15:12 | PN ---
Date of Progress Note: 01/23/2019 Subjective: Patient seen and examined. Chart reviewed and case discussed with RN and Dr. Moses. Patient is still very hypoxic off the BiPAP. Medications: List reviewed. Physical Examination: Vital Signs: Temperature 97, heart rate 85, blood pressure 165/83, respirations 30, O2 of 95% on 50% BiPAP, dropped down to 84% on 4 L via nasal cannula. General: Awake, alert, oriented x3. Morbidly obese female, ill-appearing, in mild respiratory distr ess. CV: S1, S2. Regular rate and rhythm. Peripheral pulses present. Respiratory: Diminished breath sounds on the right. No wheezing. Gastrointestinal: Abdomen is soft, nontender, nondistended. Positive bowel sounds. Extremities: No clubbing, cyanosis, or edema. Neuro: Cranial nerves 2 through 12 intact grossly. No focal neurological deficit. Speech is normal . Skin: No rashes. Normal skin turgor. Laboratory Data: Sodium 137, potassium 4.8, chloride 104, CO2 of 26, BUN 24, creatinine 1.47, glucos e 196, calcium 8.9. WBC 11.4, H and H 10 and 31.9, platelets 319, neutrophils 94%. Blood cultures a nd sputum cultures pending. Influenza screen is negative. CT scan of the chest, pending. D-dimer pending. Assessment And Plan: A 63-year-old female with. 1.Acute on chronic respiratory failure with hypercapnia and hypoxia, still requiring BiPAP. Becomes very hypoxic on 4 L via nasal cannula, likely secondary to lung mass, presumably cancer, congestive heart failure and chronic obstructive pulmonary disease. Appreciate Dr. Moses's input. 2.Right lower lobe pneumonia. We will continue with IV antibiotics and follow up on cultures. No g rowth to date. White blood cell count is trending down. 3.History of congestive heart failure, unknown EF, likely diastolic dysfunction. Echo is pending. We will continue with strict I's and O's, fluid restriction. Resume home medications. Patient is on torsemide. 4.Chronic obstructive pulmonary disease, chronic bronchitis. We will continue with supplemental oxy gen. Patient usually uses 3-1/2 L at home. 5.Lung mass, 2.1 cm in the left lower lobe. Patient previously has refused PET scan biopsy and furt her workup, likely is cancer. We will address further with the patient. 6.Mixed hyperlipidemia. Continue statin. 7.Chronic kidney disease stage 3. Creatinine is around baseline. We will continue to monitor and a void NSAIDs. 8.Morbid obesity. BMI is 40.4. 9.Noncompliance with CPAP. 10.Deep venous thrombosis prophylaxis with Lovenox. Plan: Follow up with D-dimer and rule out PE and DVT. Patient complaining of pleuritic chest pain. Overall prognosis is poor if this mass is cancerous. Patient is very hypoxic. If she does not wish to have further diagnosis and treatment, then we would recommend hospice. /FRANSISCA Voice ID: [id number] Report ID: [id number]
--- NOTE | 2019-01-23 15:27 | RAD REPORT ---
EXAM DESCRIPTION: USExtrem Venous W Compress Bil01/23/2019 3:12 pm CLINICAL HISTORY: Leg pain COMPARISON: none FINDINGS: The common femoral, superficial femoral, popliteal and posterior tibial veins bilaterally are compressible and demonstrate augmentation. Doppler demonstrates good flow. IMPRESSION: No evidence of deep venous thrombosis involving either lower extremity.
[2019-01-23] MEDS ORDERED: ENOXAPARIN 30 MG/0.3 ML SQ SCH (17:00)
[2019-01-23] MEDS ORDERED: AZITHROMYCIN IV 500 MG in NA CHLORIDE 0.9% 250 ML IVPB SCH (19:00)
[2019-01-23] MEDS: ATORVASTATIN 20 MG TAB PO SCH (20:26)
[2019-01-23] MEDS: MONTELUKAST 10 MG TAB PO SCH (20:27)
[2019-01-24] MEDS: IPRATROPIUM BROM 0.5MG/2.5ML NEB SCH ×4 (02:00→19:41)
[2019-01-24 08:02] LABS: Absolute Lymphocytes (CBC) 0.9 K/uL (0.7-4.9); Basophils % 0.4 % (0-1.3); Hematocrit 28.7 % (36.0-45.0); MPV 7.8 fL (7.6-11.3); RBC Red Blood Cell Count 3.46 M/uL (3.86-4.86)
[2019-01-24] MEDS: ARFORMOTEROL TARTRATE 15 MCG/2 ML VIAL.NEB NEB SCH ×2 (08:06→19:41)
[2019-01-24] MEDS: ALBUTEROL 2.5 MG/3 ML NEB SOL NEB PRN ×2 (08:06→13:16)
[2019-01-24 08:24] LABS: Potassium 5.5 mmol/L (3.5-5.1)
[2019-01-24] MEDS: FLUTICASONE 50MCG NASAL SPRAY NAS SCH (08:28)
[2019-01-24] MEDS: NEBIVOLOL HCL 5 MG TAB PO SCH (08:29)
[2019-01-24] MEDS: CLOPIDOGREL 75 MG TABLET PO SCH (08:29)
[2019-01-24] MEDS: AZITHROMYCIN 250 MG TAB PO SCH (08:29)
[2019-01-24] MEDS: CEFTRIAXONE/SWI 1gm 1 GM/10 ML SYR IV SCH ×2 (08:30→21:00)
[2019-01-24] MEDS: predniSONE 20 MG TAB PO SCH ×2 (08:30→21:41)
[2019-01-24] MEDS: CETIRIZINE HCL 5 MG TABLET PO SCH (08:30)
[2019-01-24] MEDS: AMLODIPINE 5 MG TAB PO SCH (08:30)
[2019-01-24] MEDS: ALLOPURINOL 100 MG TAB PO SCH (08:30)
[2019-01-24] MEDS: ASPIRIN 81 MG CHEWABLE TABLET PO SCH (08:31)
--- NOTE | 2019-01-24 08:47 | RAD REPORT ---
EXAM DESCRIPTION: NM - Vent Perfusion VQ Scan - 01/24/2019 7:29 am CLINICAL HISTORY: Elevated D-dimer, shortness of breath COMPARISON: Noncontrast CT chest January 23, portable chest January 22 TECHNIQUE: The patient was administered 20.2 mCi Xenon 133 gas with posterior projection inspiration , equilibrium, and washout views obtained. The patient was then administered 7.5 mCi Tc-99m MAA label ed RBCs followed by standard 8 view protocol. FINDINGS: There is good distribution of the Xenon with no ventilation defects identified. Some minim al loss in activity in each lung base seen. Patient had atelectasis in each lung base on the January 04 study. Poor washout of the radiopharmaceutical noted. Patient has mild to moderate air trapping in the left lung field with mild to moderate upper right lung field air trapping and moderate right lung base air trapping. Left lung gómez show some mild patchy heterogeneity of the radiopharmaceutical distribution. No sign ificant perfusion defects identifiable. Right lung field shows several areas of patchy or diminished activity in the left upper lobe and in the posterior mid right lung field. A small focus diminished a ctivity is seen at the right lung base. IMPRESSION: Intermediate probability V/Q scan for pulmonary embolism.
[2019-01-24] MEDS ORDERED: Enoxaparin 120 MG/0.8 ML SYR SQ SCH (09:00)
[2019-01-24] MEDS ORDERED: TORSEMIDE 20 MG TAB PO SCH (09:00)
[2019-01-24 09:12] LABS: Anisocytosis 1+; Blood Morphology Comment NOTED (NOT SEEN); Platelet Estimate ADEQ
--- NOTE | 2019-01-24 13:39 | PN ---
Date of Progress Note: 01/24/2019 Subjective: Patient seen and examined. Chart reviewed and case discussed with RN. The patient feel s about the same. Still on BiPAP. Medications: List reviewed. Physical Examination: Vital Signs: Temperature 97, heart rate 69, blood pressure 144/72, respirations 22, O2 90% on BiPAP with 35% FiO2. General: Awake, alert, oriented x3. Morbidly obese female in mild respiratory distress. CV: S1, S2. Regular rate and rhythm. Peripheral pulses present. Respiratory: Diminished breath sounds, especially on the right base. No wheezing or stridor. The p atient is tachypneic. Gastrointestinal: Abdomen is soft, nontender, nondistended. Positive bowel sounds. Extremities: No clubbing or cyanosis. Minimal pedal edema. Neurologic: Nonfocal. Laboratory Data: Sodium 143, potassium 5.5, chloride 109, CO2 25, BUN 37, creatinine 1.42, glucose 1 09, calcium 8.7. WBC 14.8, H and H 8.9 and 28.7, platelets 325, neutrophils 88%. Blood cultures no growth to date. Sputum culture still pending. V/Q scan shows intermediate probability of pulmonary embolism. Echocardiogram shows EF of 60% to 69%, left ventricular hypertrophy, impaired relaxation o f the left ventricle. Assessment And Plan: A 63-year-old female with. 1.Acute on chronic respiratory failure with hypercapnia and hypoxia. The patient is still requiring BiPAP secondary to lung mass, congestive heart failure, chronic obstructive pulmonary disease. 2.and pneumonia. Appreciate Dr. Moses's input. We will continue to wean as tolerated. 3.Right lower lobe pneumonia. Continue IV antibiotics. Cultures negative to date. Sputum cultures are pending. WBC count trending up, may be secondary to steroids. 4.Diastolic heart failure, chronic. Echocardiogram shows EF of 60% to 69%. Continue with fluid res triction and daily weights. We will switch over to IV Lasix. 5.Chronic obstructive pulmonary disease, chronic bronchitis. We will continue with supplemental oxy gen and oral steroids. 6.Lung mass, 2.1 cm in the left lower lobe. Spoke with the patient yesterday at length regarding th is mass. She has previously refused any biopsies or PET scans. She understands that this is most li chandrakant cancerous and can spread. She understands the risks associated with not pursuing further diagno sis evaluation and treatment of this lung mass including spread of possible cancer, metastases, and e quentin . 7.Hypertensive heart disease. 8.Mixed hyperlipidemia. We will continue statin. 9.Possible PE. V/Q scan shows intermediate probability, likely due to her pneumonia and other pulmo nary issues going on. We will continue with Lovenox. Echocardiogram did not show any right ventricu lar strain. We will discuss further with Pulmonology. 10.Chronic kidney disease stage 3. Creatinine is at baseline. We will continue to monitor and we w ill avoid nephrotoxins and NSAIDs. 11.Morbid obesity. BMI 40. 12.Noncompliance at home with CPAP. 13.Deep venous thrombosis prophylaxis. The patient is on Lovenox. Overall, poor prognosis. We johann l continue to wean off O2. SA/MODL Voice ID: [id number] Report ID: [id number]
[2019-01-24] MEDS: FUROSEMIDE 40 MG/4 ML VIAL IV SCH (16:04)
[2019-01-24] MEDS: MONTELUKAST 10 MG TAB PO SCH (21:40)
[2019-01-24] MEDS: ATORVASTATIN 20 MG TAB PO SCH (21:41)
[2019-01-25] MEDS: IPRATROPIUM BROM 0.5MG/2.5ML NEB SCH ×2 (01:30→08:16)
[2019-01-25] MEDS: ALBUTEROL 2.5 MG/3 ML NEB SOL NEB PRN (01:30)
[2019-01-25 06:18] LABS: Basophils % 0.4 % (0-1.3); Hematocrit 31.6 % (36.0-45.0); Lymphocytes % 7.6 % (15.3-44.8); MPV 7.8 fL (7.6-11.3)
--- NOTE | 2019-01-25 07:55 | P.PN ---
Subjective Date of Service: 01/25/19 Chief Complaint: Shortness of breath right-sided pleuritic chest pain Subjective: Improving (Patient is doing much better. Her pain has improved shortness of breath has also improved no new complaints) Review of Systems Respiratory: Shortness of Breath Physical Examination - Vital Signs Temperature: 97.0 F Blood Pressure: 142/65 Pulse: 60 Respirations: 18 Pulse Ox (%): 89 - Physical Exam General: Alert, Oriented x3 Neck: Supple Respiratory: Clear to auscultation bilaterally, Diminished Cardiovascular: No edema, Regular rate/rhythm Assessment & Plan - Problems (Diagnosis) (1) Pleuritic chest pain Current Visit: Yes Status: Acute Plan: Patient is 63 years of age with a history of severe COPD admitted with pleuritic chest pain probably pneumonia based on the CT scan appearance there is no evidence of DVT had echocardiogram is normal V/Q scan shows intermediate probability due to underlying COPD white count is mildly elevated I suspect it is all from pneumonia as patient is feeling better white count is declining patient can be discharged home low-dose levofloxacin and prednisone to follow up with me in 2 weeks he I have advised her to use her home CPAP and patient has oxygen in addition to nebulizers and inhalers at home also has chronic renal failure cultures are so far negative labs reviewed white count is declining
[2019-01-25] MEDS: ARFORMOTEROL TARTRATE 15 MCG/2 ML VIAL.NEB NEB SCH (08:16)
[2019-01-25] MEDS: FLUTICASONE 50MCG NASAL SPRAY NAS SCH (08:36)
[2019-01-25] MEDS: CEFTRIAXONE/SWI 1gm 1 GM/10 ML SYR IV SCH (08:36)
[2019-01-25] MEDS: AZITHROMYCIN 250 MG TAB PO SCH (08:37)
[2019-01-25] MEDS: predniSONE 20 MG TAB PO SCH (08:37)
[2019-01-25] MEDS: CETIRIZINE HCL 5 MG TABLET PO SCH (08:37)
[2019-01-25] MEDS: ASPIRIN 81 MG CHEWABLE TABLET PO SCH (08:37)
[2019-01-25] MEDS: CLOPIDOGREL 75 MG TABLET PO SCH (08:37)
[2019-01-25] MEDS: FUROSEMIDE 40 MG/4 ML VIAL IV SCH ×2 (08:38→08:49)
[2019-01-25] MEDS: ALLOPURINOL 100 MG TAB PO SCH (08:38)
[2019-01-25] MEDS: NEBIVOLOL HCL 5 MG TAB PO SCH (08:43)
[2019-01-25] MEDS: AMLODIPINE 5 MG TAB PO SCH (08:48)
[2019-01-25] MEDS ORDERED: ENOXAPARIN 30 MG/0.3 ML SQ SCH (09:00)
--- NOTE | 2019-01-25 12:08 | DS ---
Date of Discharge: 01/25/2019 Consultants: Dr. Moses with Pulmonology. Admitting Diagnoses: 1.Acute respiratory failure with hypoxia and hypercapnia. 2.Right lower lobe pneumonia. 3.History of congestive heart failure, diastolic dysfunction. 4.Chronic obstructive pulmonary disease, chronic bronchitis, O2 dependent. 5.Mixed hyperlipidemia. 6.Chronic kidney disease stage 3. 7.Morbid obesity. BMI of 40. 8.Noncompliance with CPAP. Discharge Diagnoses: 1.Acute respiratory failure with hypoxia and hypercapnia, resolving. 2.Right lower lobe pneumonia, improved. 3.Diastolic heart failure, chronic. 4.Chronic obstructive pulmonary disease, chronic bronchitis, O2 dependent. 5.Lung mass 2.17 cm in the left lower lobe. The patient refuses further workup. 6.Hypertensive heart disease. 7.Mixed hyperlipidemia. 8.Chronic kidney disease stage 3. 9.Morbid obesity. BMI of 40. 10.Noncompliance with CPAP. Hospital Course: The patient is a 63-year-old female who comes in with shortness of breath and pleur itic pain. The patient has a history of congestive heart failure, COPD, gout, hyperlipidemia, hypert ension, is O2 dependent, uses 3.5 L of oxygen at home. The patient was found to be hypoxic 70%, plac ed on BiPAP. Her ABG showed elevated pCO2. Patient's imaging studies showed pneumonia on the right lower lobe. She was started on IV antibiotics and Pulmonology was also consulted. Cultures were obt ained. Influenza screen was negative. Blood cultures did not show any growth. The patient did have elevated D-dimer and V/Q scan was done to rule out PE. She was unable to have contrast due to her k idney dysfunction, showed intermediate probability. However, echocardiogram did not show any right v entricular strain and she was not felt to have PE. Her echocardiogram showed an ejection fraction of 60 to 69%, and she had left ventricular hypertrophy and impaired left ventricular relaxation. Overa ll, patient did well. She was able to be weaned off BiPAP. Her kidney function remained around base line. Her lactate improved. Her hyperkalemia was corrected. Her white blood cell count was trendin g down and she did not have any signs of sepsis. She was on steroids for her COPD as well. The ana ent was then cleared for discharge. She was able to ambulate without difficulty. She understands th at she has risk for further progression of her lung mass, which is most likely malignant, which may b ecome metastatic and even cause . Discussed this with the patient and family. She understands the risks, does not wish to pursue any further diagnosis. The patient was then cleared for discharge and was sent home in a stable condition. Activity: As tolerated. Medications: As per medication reconciliation list. Followup: Follow up with primary care physician in 2-3 days. Follow up with assistant store manager trainee, Dr. Edda pascal in 2 weeks. Return to ER for worsening condition. Physical Examination: General: Awake, alert, oriented x3. Morbidly obese female. CV: S1, S2. Respiratory: Moving air well bilaterally. Abdomen: Abdomen is soft, nontender, nondistended. Positive bowel sounds. Extremities: No clubbing, cyanosis, or edema. Neurologic: Nonfocal. Total time spent discharging the patient was 42 minutes. LIV Voice ID: [id number] Report ID: [id number]
== END 2019-01-25 10:50 | disposition home or self-care (01) | DRG 189 ==
LOC: ER 15:20 → ERHOLD 17:48 → 4TH 19:59
PROVIDERS: ADMIT Family Medicine; ATTEND Family Medicine
PROC: 5A09457 Assistance with Respiratory Ventilation, 24-96 Consecutive Hours, Continuous Positive Airway Pressure (ICD-10-PCS; principal; 2019-01-22)
DX: J96.02 Acute respiratory failure with hypercapnia (principal); J18.9 Pneumonia, unspecified organism; I13.0 Hypertensive heart and chronic kidney disease with heart failure and stage 1 through stage 4 chronic kidney disease, or unspecified chronic kidney disease; I50.32 Chronic diastolic (congestive) heart failure; Z68.41 Body mass index [BMI] 40.0-44.9, adult; J44.0 Chronic obstructive pulmonary disease with (acute) lower respiratory infection; J96.01 Acute respiratory failure with hypoxia; Z99.81 Dependence on supplemental oxygen; N18.3 Chronic kidney disease, stage 3 (moderate); R91.8 Other nonspecific abnormal finding of lung field; E78.2 Mixed hyperlipidemia; E66.01 Morbid (severe) obesity due to excess calories; Z91.19 Patient's noncompliance with other medical treatment and regimen; M10.9 Gout, unspecified; Z88.0 Allergy status to penicillin; Z88.2 Allergy status to sulfonamides
CPT/HCPCS: 36415; 71045; 71250; 78582; 80048; 80076; 82805; 83605; 83690; 83735; 83880; 84145; 84484; 85025; 85379; 85610; 87040; 87804; 93005; 93306; 93970; 94640; 94660; 94760; 96365; 96375; 99285; A9540; A9558; J0456; J0696; J1650; J1940; J2930; J7512; J7605

== ENCOUNTER 2019-08-17 15:32 | Emergency (ER) | payer OTHER ==
--- NOTE | 2019-08-17 17:04 | ER ---
Nurse's Notes [facility] Name: Deanna Flores Age: 64 yrs Sex: Female : 1955 Arrival Date: 08/17/2019 Time: 15:33 Bed 16 Private MD: Francisco Javier Shaffer Diagnosis: Hidradenitis suppurativa Presentation: 08/16 15:39 Chief complaint: Patient states: abscess to groin area x 2 weeks. Pt states, "I get ss these abscesses all the time, for 60 years. They come and they go, but these won't go away.". Coronavirus screen: The patient has NOT traveled to a country currently being monitored by the CDC within the last 14 days. Proceed with normal triage procedures. Ebola Screen: Patient denies exposure to infectious person. Patient denies travel to an Ebola-affected area in the 21 days before illness onset. Initial Sepsis Screen: Does the patient meet any 2 criteria? No. Patient's initial sepsis screen is negative. Does the patient have a suspected source of infection? Yes: Skin breakdown/wound. Risk Assessment: Do you want to hurt yourself or someone else? Patient reports no desire to harm self or others. 15:39 Method Of Arrival: Wheelchair ss 15:39 Acuity: JUDI 3 ss 17:42 Onset of symptoms is unknown. vc Historical: - Allergies: 15:45 Codeine; ss 15:45 Sulfa (Sulfonamide Antibiotics); ss - PMHx: 15:45 "enlarged heart"; CHF; COPD; Gout; Hyperlipidemia; Hypertension; ss - PSHx: 15:45 ; ss - Immunization history:: Adult Immunizations up to date. - Social history:: Smoking status: Patient/guardian denies using tobacco, but has a distant history of tobacco abuse. Screenin:00 Abuse screen: Denies threats or abuse. Nutritional screening: No deficits noted. vc Tuberculosis screening: No symptoms or risk factors identified. Fall Risk None identified. Assessment: 17:00 General: Appears in no apparent distress. uncomfortable, Behavior is cooperative, vc appropriate for age. Pain: Complains of pain in groin. Pain: Complains of pain in right inner thigh, medial aspect of right thigh and right upper thigh. Pain: Complains of pain in left inner thigh, medial aspect of left thigh and left upper thigh Pain currently is 10 out of 10 on a pain scale. 17:00 Neuro: Level of Consciousness is awake, alert, obeys commands, Oriented to person, vc place, time, situation, Appropriate for age. Cardiovascular: Capillary refill < 3 seconds Patient's skin is warm and dry. Respiratory: Airway is patent Respiratory effort is even, unlabored, Respiratory pattern is regular, symmetrical. GI: No signs and/or symptoms were reported involving the gastrointestinal system. GI: Reports nausea. : No signs and/or symptoms were reported regarding the genitourinary system. EENT: No signs and/or symptoms were reported regarding the EENT system. Derm: Abscess located on groin area, medial portion and anterior portion of lateral thighs. Musculoskeletal: Circulation, motion, and sensation intact. 18:00 Reassessment: No changes from previously documented assessment. Patient and/or family vc updated on plan of care and expected duration. Pain level reassessed. Patient states symptoms have not improved. Vital Signs: 15:39 BP 113 / 57; Pulse 83; Resp 18; Temp 97.0(TE); Pulse Ox 92% on 2 lpm NC; Weight 113.4 ss kg; Height 5 ft. 6 in. (167.64 cm); Pain 9/10; 15:39 Body Mass Index 40.35 (113.40 kg, 167.64 cm) ss ED Course: 15:33 Patient arrived in ED. mr 15:33 Francisco Javier Shaffer MD is Private Physician. mr 15:45 Triage completed. ss 15:45 Arm band placed on right wrist. ss 16:44 Saul Madera NP is PHCP. pm1 16:44 Pan Zheng MD is Attending Physician. pm1 17:03 Scotty Keith MD is Referral Physician. pm1 17:35 July Hermosillo RN is Primary Nurse. vc 17:41 Patient has correct armband on for positive identification. Pulse ox on. NIBP on. vc 18:25 No provider procedures requiring assistance completed. Patient did not have IV access vc during this emergency room visit. Administered Medications: 17:55 Drug: traMADol 50 mg Route: PO; vc 17:55 Drug: Clindamycin 600 mg Route: IM; Site: left ventrogluteal; vc Outcome: 17:03 Discharge ordered by . pm1 18:25 Discharged to home via wheelchair, with family. vc 18:25 Condition: good 18:25 Discharge instructions given to patient, family, Instructed on discharge instructions, follow up and referral plans. medication usage, Demonstrated understanding of instructions, follow-up care, medications, Prescriptions given X 2. 18:30 Patient left the ED. vc Signatures: Yi Bass Shelby, ARELI RN ss Saul Madera, MARY [employer] SERVICE PERSON pm1 July Hermosillo RN RN vc
--- NOTE | 2019-08-17 17:04 | EDPHYS ---
Physician Documentation [facility] Name: Deanna Flores Age: 64 yrs Sex: Female : 1955 Arrival Date: 08/17/2019 Time: 15:33 Bed 16 Private MD: Francisco Javier Shaffer ED Physician Pan Zheng HPI: 08/16 17:02 This 64 yrs old Black Female presents to ER via Wheelchair with complaints of Abscess. pm1 17:02 The patient presents with an abscess of the groin. Description: draining. Onset: The pm1 symptoms/episode began/occurred 2 week(s) ago, Patient has had hidradenitis suppurativa since the age of 8 in her axilla and since the age of 20 to her groin. Associated signs and symptoms: Pertinent positives: drainage, Pertinent negatives: fever. Modifying factors: the symptoms are alleviated by nothing, the symptoms are aggravated by nothing. Severity of symptoms: in the emergency department the symptoms are actually worse. The patient has experienced similar episodes in the past, chronically. Historical: - Allergies: 15:45 Codeine; ss 15:45 Sulfa (Sulfonamide Antibiotics); ss - PMHx: 15:45 "enlarged heart"; CHF; COPD; Gout; Hyperlipidemia; Hypertension; ss - PSHx: 15:45 ; ss - Immunization history:: Adult Immunizations up to date. - Social history:: Smoking status: Patient/guardian denies using tobacco, but has a distant history of tobacco abuse. ROS: 17:02 Constitutional: Negative for fever, chills, and weight loss, Cardiovascular: Negative pm1 for chest pain, palpitations, and edema, Respiratory: Negative for shortness of breath, cough, wheezing, and pleuritic chest pain, Abdomen/GI: Negative for abdominal pain, nausea, vomiting, diarrhea, and constipation, Back: Negative for injury and pain, MS/Extremity: Negative for injury and deformity. 17:02 Neuro: Negative for headache, weakness, numbness, tingling, and seizure. 17:02 Skin: Positive for abscess, of the groin. Exam: 17:02 Constitutional: This is a well developed, well nourished patient who is awake, alert, pm1 and in no acute distress. Head/Face: Normocephalic, atraumatic. Chest/axilla: Normal chest wall appearance and motion. Nontender with no deformity. No lesions are appreciated. Cardiovascular: Regular rate and rhythm with a normal S1 and S2. No gallops, murmurs, or rubs. No pulse deficits. Respiratory: Lungs have equal breath sounds bilaterally, clear to auscultation and percussion. No rales, rhonchi or wheezes noted. No increased work of breathing, no retractions or nasal flaring. Abdomen/GI: Soft, non-tender, with normal bowel sounds. No distension or tympany. No guarding or rebound. No evidence of tenderness throughout. Back: No spinal tenderness. No costovertebral tenderness. Full range of motion. 17:02 MS/ Extremity: Pulses equal, no cyanosis. Neurovascular intact. Full, normal range of motion. 17:02 Skin: Appearance: abscess, multiple small abscess present that are open. No surrounding cellulitis. Two present to right inner thigh. Three present to left inguinal area. Central one on left inguinal area open with drainage and easily expressed with palpation, cellulitis, is not appreciated. 17:02 Neuro: Orientation: is normal, Motor: is normal, moves all fours, Sensation: is normal, no obvious gross deficits. Vital Signs: 15:39 BP 113 / 57; Pulse 83; Resp 18; Temp 97.0(TE); Pulse Ox 92% on 2 lpm NC; Weight 113.4 ss kg; Height 5 ft. 6 in. (167.64 cm); Pain 9/10; 15:39 Body Mass Index 40.35 (113.40 kg, 167.64 cm) ss MDM: 16:49 Patient medically screened. [facility] 17:02 Data reviewed: vital signs. Data interpreted: Pulse oximetry: on 2L(s) per nasal pm1 [place], is 92 %. Interpretation: normal, patient's baseline. Counseling: I had a detailed discussion with the patient and/or guardian regarding: the historical points, exam findings, and any diagnostic results supporting the discharge/admit diagnosis, the need for outpatient follow up, for definitive care, a general surgeon, to return to the emergency department if symptoms worsen or persist or if there are any questions or concerns that arise at home. 17:02 ED course: Patient does not want any labs or hospitalization. She would like to go home pm1 and take antibiotics. Patient educated on return precautions. 17:43 ED course: PMPAware reviewed. Tramadol prescription on 06/27/2019. pm1 Administered Medications: 17:55 Drug: traMADol 50 mg Route: PO; vc 17:55 Drug: Clindamycin 600 mg Route: IM; Site: left ventrogluteal; vc Disposition: 08/17/19 17:03 Discharged to Home. Impression: Hidradenitis suppurativa. - Condition is Stable. - Discharge Instructions: Hidradenitis Suppurativa. - Prescriptions for Doxycycline Hyclate 100 mg Oral Tablet - take 1 tablet by ORAL route every 12 hours; 20 tablet. Tramadol 50 mg Oral Tablet - take 1 tablet by ORAL route every 8 hours As needed as needed; 20 tablet. - Medication Reconciliation Form, Thank You Letter, Antibiotic Education, Prescription Opioid Use form. - Follow up: Emergency Department; When: As needed; Reason: Worsening of condition. Follow up: Scotty Keith MD; When: 2 - 3 days; Reason: Recheck today's complaints, Continuance of care, Re-evaluation by your physician. - Problem is new. - Symptoms have improved. Addendum: 08/19/2019 09:11 Co-signature as Attending Physician, Pan Zheng MD I agree with the assessment and c vaughn plan of care. Signatures: Pan Zheng MD MD cha Smirch, Shelby, RN RN Saul Madera NP BOX BUILDER pm1 July [place] RN RN vc Corrections: (The following items were deleted from the chart) 08/16 18:30 17:03 08/17/2019 17:03 Discharged to Home. Impression: Hidradenitis suppurativa. vc Condition is Stable. Forms are Medication Reconciliation Form, Thank You Letter, Antibiotic Education, Prescription Opioid Use. Follow up: Emergency Department; When: As needed; Reason: Worsening of condition. Follow up: Scotty Keith; When: 2 - 3 days; Reason: Recheck today's complaints, Continuance of care, Re-evaluation by your physician. Problem is new. Symptoms have improved. pm1
[2019-08-17] MEDS ORDERED: CLINDAMYCIN IV 150 MG/ML (4 mL) VIAL ONE (17:51)
[2019-08-17] MEDS ORDERED: TRAMADOL HCL 50 MG TAB ONE (17:53)
== END 2019-08-17 18:30 | disposition home or self-care (01) ==
LOC: ER 15:32
DX: L73.2 Hidradenitis suppurativa (principal); Z88.6 Allergy status to analgesic agent; Z88.2 Allergy status to sulfonamides
CPT/HCPCS: 96372; 99283; S0077

== ENCOUNTER 2020-01-13 17:09 | Inpatient (IN) | payer OTHER ==
--- OUTSIDE RECORDS SUMMARY | 2020-01-13 17:41 | XMS REPORT | Continuity of Care Document ---
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) Chronic Active Problem 2018 [place] obstructive lung disease (disorder) Essential Active Problem 2018 [place] hypertension (disorder) Smoker (finding) Resolved Problem 2018 [place] PNEUMONIA, Active [facility] 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 Give with food or milk. Lasix Notes: (Same No Longer as: Lasix) Active 2018 [place] MEDICATION WASTE Product Size: 40 mg Product Wasted: ___ mg Lasix Notes: (Same No Longer as: Lasix) October [place] cause GI upset. Give with food or milk. Acetazolamide Notes: (Same No Longer as: Diamox) Active 2018 [place] Lasix Notes: (Same Inactive as: Lasix) October 2018 [place] cause GI upset. Give with food or milk. Bystolic Notes: Same as: No Longer Bystolic Active 2018 [place] Singulair Notes: (Same No Longer as:Singulair) Active 2019 [place] Fluticasone Notes: (Same No Longer propionate 0.05 as: Flonase) Active 2018 [place] MG/ACTUAT Metered Dose Nasal [place] [Flonase] Advair Diskus 250 1 puff, Route: No Longer 07/29 mcg-50 mcg INHALATION, Active 2018 [place] inhalation powder Drug Form: AERO, Dosing Weight 106.5, kg, BID, Start date: 07/29/18 9:00:00 REGISTRAR ASSISTANT, Duration: 30 day, Stop date: 08/27/18 17:00:00 CDT Aspirin Notes: Do not No Longer crush or chew. Active 2018 [place] (Same As: Ecotrin) Plavix Notes: (Same No Longer As: Plavix) Active 2019 [place] Norvasc Notes: (Same No Longer as: Norvasc) Active 2018 [place] Allopurinol Notes: (Same No Longer as: Zyloprim) Active 2018 [place] atorvastatin Notes: (Same No Longer As: Lipitor) Active 2018 [place] Zyrtec Notes: (Same No Longer As: Zyrtec) Active 2018 [place] cefTRIAXone + Notes: (Same No Longer sterile water 10 As: Rocephin). Active 2018 [place] mL Use with 100 mL NS and infuse over 30 min MEDICATION WASTE Product Size: 1000 mg Product Wasted: ___ mg Ceftriaxone Notes: (Same Inactive As: Rocephin). 2019 [place] Use with 100 mL NS and infuse over 30 min MEDICATION WASTE Product Size: 1000 mg Product Wasted: ___ mg Furosemide Notes: (Same Inactive as: Lasix) 2019 [place] MEDICATION WASTE Product Size: 40 mg Product Wasted: ___ mg Lasix Notes: (Same No Longer as: Lasix) May Active 2018 [place] cause GI upset. Give with food or milk. Prednisone Notes: Take No Longer with food. Active 2019 [place] clopidogrel 75 MG 75 mg = 1 tab, Active Oral Tablet PO, Daily, # 30 2019 [place] [Plavix] tab, 0 Refill(s) Fluticasone 1 spray, NASAL, Active propionate 0.05 BID, # 16 gm, 0 2019 [place] MG/ACTUAT Metered Refill(s) Dose Nasal [place] [Flonase] atorvastatin 20 mg 20 mg = 1 tab, Active oral tablet PO, Bedtime, # 2019 [place] and 90 tab, 1 Refill(s) cetirizine 10 mg = 1 tab, Active hydrochloride 10 PO, Daily, PRN 2019 [place] MG Oral Tablet Allergic [Zyrtec] reaction, # 10 tab, 0 Refill(s) Furosemide 20 MG 20 mg = 1 tab, No Longer Oral Tablet PO, Daily, 0 Active 2019 [place] [Lasix] Refill(s) nebivolol 5 MG 5 mg = 1 tab, Active Oral Tablet PO, Daily, # 30 2019 [place] [Bystolic] tab, 0 Refill(s) montelukast 10 MG 10 mg = 1 tab, Active Oral Tablet PO, Daily, 0 2019 [place] [Singulair] Refill(s) 200 ACTUAT 1 puff, Active Albuterol 0.09 INHALER, Q6H, 2019 [place] MG/ACTUAT Metered PRN for Dose Inhaler wheezing, # 8.5 [ProAir HFA] gm, 0 Refill(s) Amlodipine 5 MG 5 mg = 1 tab, Active Oral Tablet PO, Daily, # 30 2019 [place] [Norvasc] tab, 0 Refill(s) Advair Diskus 250 1 puff, No Longer mcg-50 mcg INHALATION, Active 2019 [place] inhalation powder BID, # 1 ea, 3 Refill(s) allopurinol 100 mg 100 mg = 1 tab, Active 07/26 oral tablet PO, Daily, # 90 2019 [place] tab, 1 Refill(s) Magnesium Sulfate Notes: WASTE: Inactive F/P - Sink; E - 2019 [facility] Bin Solu-Medrol Notes: (Same No Longer as:Solu-MEDROL, Active 2019 [place] A-Methapred) Tamiflu Notes: Take Inactive with food. Same 2018 [place] as: Tamiflu) vancomycin + 2001 mg: No Longer Sodium Chloride infuse over 2.5 Active 2018 [place] 0.9% IV 250 mL hours For adult patients only: Round to nearest 250 mg per Medical Staff approval MEDICATION WASTE Product Size: 1000 mg Product Wasted: ___ mg Kayexalate Notes: (sodium Inactive polystyrene 2019 [place] sulfonate 15 gm/60 ml JESSICA) Shake well before use. (Same as: Kayexalate, SPS) Lasix Notes: (Same No Longer as: Lasix) Active 2018 [place] MEDICATION WASTE Product Size: 40 mg Product Wasted: ___ mg Oseltamivir Notes: (Same No Longer as: Tamiflu) Active 2018 [place] Sodium Bicarbonate Notes: (sodium Inactive 07/24 bicarb 8.4% (1 2018 [place] mEq/ml) 50 ml VL) Solu-Medrol Notes: (Same No Longer as:Solu-MEDROL, Active 2018 [place] A-Methapred) Budesonide Notes: (Same No Longer As: Pulmicort) Active 2019 [place] heparin Notes: porcine No Longer heparin Active 2018 [place] Albuterol 0.833 Notes: (Same No Longer H MG/ML / as: Duoneb) Active 2018 [place] Ipratropium [place] 0.167 MG/ML Inhalant Solution cefepime Notes: (Same No Longer As: Maxipime) Active 2018 [place] MEDICATION WASTE Product Size: 1000 mg Product Wasted: ___ mg Insulin regular 60 units) Inactive WASTE: F/P - 2019 [place] Black; E - Municipal Trash Bin Stable for 28 days at room temperature Expires in days from D ate Dextrose 50% 25 gm, 50 mL, Inactive Syringe Route: IVP, 2019 [place] Drug Form: INJ, Dosing Weight 106.5, kg, ONCE, Start date: 07/24/18 6:19:00 REGISTRAR ASSISTANT, Stop date: 07/24/18 6:19:00 REGISTRAR ASSISTANT Kayexalate Notes: (sodium Inactive polystyrene 2019 [place] sulfonate 15 gm/60 ml JESSICA) Shake well before use. (Same as: Kayexalate, SPS) vancomycin + 2001 mg: Inactive Sodium Chloride infuse over 2.5 2018 [place] 0.9% IV 500 mL hours For adult patients only: Round to nearest 250 mg per Medical Staff approval MEDICATION WASTE Product Size: 1000 mg Product Wasted: ___ mg Vancomycin 2001 mg: No Longer infuse over 2.5 Active 2018 [place] hours For adult patients only: Round to nearest 250 mg per Medical Staff approval MEDICATION WASTE Product Size: 1000 mg Product Wasted: ___ mg Dextromethorphan Notes: No Longer Hydrobromide 10 MG (dextromethorph Active 2018 [place] / Guaifenesin 100 an-guaifenesin MG Oral Tablet 10-100mg/5ml 10 ml oral SOLN ud) (Same as: Robitussin DM) Chika Delcid Notes: (Same No Longer H As: Shajion Active 2018 [place] Delcid) "Do Not Crush" Morphine Notes: (Same No Longer as:MORPhine Active 2018 [place] Sulfate) Albuterol 0.83 Notes: SEE RT No Longer H MG/ML Inhalant DOCUMENTATION Active 2018 [place] Solution (Same as: Proventil) Dextrose 50% 25 gm, 50 mL, No Longer Syringe Route: IVP, Active 2018 [place] Drug Form: INJ, Dosing Weight 95.909, kg, PRN, PRN Blood Glucose Results, Start date: 07/24/18 2:59:00 REGISTRAR ASSISTANT, Duration: 30 day, Stop date: 08/23/18 3:58:00 CDT Glucagon 1 mg, Route: No Longer IM, Drug form: Active 2018 [place] PDR/INJ, PRN, Dosing Weight 95.909, kg, PRN Blood Glucose Results, Start date: 07/24/18 2:59:00 REGISTRAR ASSISTANT, Duration: 30 day, Stop date: 08/23/18 3:58:00 CDT Acetaminophen Notes: Do not No Longer exceed 4 Active 2018 [place] gm/day. (Same as: Tylenol) Ondansetron Notes: (Same No Longer as: Zofran) Active 2018 [place] MEDICATION WASTE Product Size: 4 mg Product Wasted: ___ mg Bisacodyl Notes: (Same No Longer As: Dulcolax, Active 2018 [place] Bisco-Lax) Allergies, Adverse Reactions, Alerts Substance Category Reaction Severity Reaction Status Date Comments S ource type Reported sulfa drugs Assertion Drug Active allergy [place] codeine Assertion Drug Active MH allergy [place] Vicodin Assertion Drug Active MH allergy [place] Immunizations No Data Provided for This Section Results Order Name Results Value Reference Date Interpretation Comments Zulma rce Range ELECTROLYTE AGAP 12.1 10.0 - 07/31 MH S 20.0 [place] ELECTROLYTE eGFR 42 07/31 Result S Comment: The [place] eGFR is calculated using the CKD-EPI formula. [...] 0.50 - 07/31 MH S Lvl 1.40 [place] ELECTROLYTE CO2 33 24 - 32 07/31 S [place] ELECTROLYTE Calcium Lvl 9.0 8.5 - 10.5 07/31 S [place] ELECTROLYTE Chloride Lvl 97 95 - 109 07/31 MH S /2018 [place] ELECTROLYTE Sodium Lvl 138 135 - 145 07/31 MH S [place] ELECTROLYTE Potassium 4.1 3.5 - 5.1 07/31 MH S Lvl /2018 [place] ELECTROLYTE Glucose Lvl 88 70 - 99 07/31 MH S [place] ELECTROLYTE BUN 67 7 - 22 07/31 MH S [place] HEMATOLOGY WBC 5.8 3.7 - 10.4 07/31 [place] HEMATOLOGY RBC 4.69 4.20 - 07/31 MH 5.40 /2018 [place] HEMATOLOGY MCHC 33.2 32.0 - 07/31 MH 36.0 [place] HEMATOLOGY RDW 17.7 11.5 - 07/31 MH 14.5 [place] HEMATOLOGY Hct 39.0 36.0 - 07/31 MH 48.0 [place] HEMATOLOGY MCH 27.5 27.0 - 07/31 MH 31.0 [place] HEMATOLOGY MCV 83.0 80.0 - 07/31 MH 98.0 [place] HEMATOLOGY Platelet 250 133 - 450 07/31 /2018 [place] HEMATOLOGY MPV 7.7 7.4 - 10.4 07/31 [place] HEMATOLOGY Hgb 12.9 12.0 - 07/31 MH 16.0 [place] HEMATOLOGY Eosinophils 0.4 0.0 - 4.0 07/31 [place] HEMATOLOGY Monocytes 9.4 2.0 - 12.0 07/31 /2018 [place] HEMATOLOGY Lymphocytes 22.3 20.0 - 07/31 MH 40.0 [place] HEMATOLOGY Segs 67.7 45.0 - 07/31 MH 75.0 [place] HEMATOLOGY Neutrophils 3.9 1.5 - 8.1 07/31 MH # /2018 [place] HEMATOLOGY Lymphocytes 1.3 1.0 - 5.5 07/31 MH # /2018 [place] HEMATOLOGY Monocytes # 0.5 0.0 - 0.8 07/31 [place] HEMATOLOGY Basophils 0.2 0.0 - 1.0 07/31 [place] ELECTROLYTE AGAP 8.3 10.0 - 07/30 MH S 20.0 [place] ELECTROLYTE eGFR 38 07/30 Result MH S Comment: The [place] eGFR is calculated using the CKD-EPI formula. [...] 97 95 - 109 07/30 MH S [place] ELECTROLYTE Sodium Lvl 137 135 - 145 07/30 MH S [place] ELECTROLYTE Creatinine 1.64 0.50 - 07/30 MH S Lvl 1.40 /2018 [place] ELECTROLYTE Potassium 4.3 3.5 - 5.1 07/30 MH S Lvl /2018 [place] ELECTROLYTE CO2 36 24 - 32 07/30 MH S [place] ELECTROLYTE BUN 66 7 - 22 07/30 S [place] ELECTROLYTE Glucose Lvl 91 70 - 99 07/30 S [place] ELECTROLYTE Calcium Lvl 8.4 8.5 - 10.5 07/30 MH S /2018 [place] HEMATOLOGY Lymphocytes 1.3 1.0 - 5.5 07/30 MH # /2019 [place] HEMATOLOGY Monocytes # 0.8 0.0 - 0.8 07/30 [place] HEMATOLOGY Basophils 0.6 0.0 - 1.0 07/30 [place] HEMATOLOGY Neutrophils 3.2 1.5 - 8.1 07/30 MH # /2019 [place] HEMATOLOGY Lymphocytes 24.1 20.0 - 02 MH 40.0 [place] HEMATOLOGY Segs 59.7 45.0 - 07/30 MH 75.0 [place] HEMATOLOGY Monocytes 15.3 2.0 - 12.0 07/30 [place] HEMATOLOGY Eosinophils 0.3 0.0 - 4.0 07/30 [place] HEMATOLOGY Platelet 220 133 - 450 07/30 [place] HEMATOLOGY MPV 7.9 7.4 - 10.4 07/30 [place] HEMATOLOGY WBC 5.4 3.7 - 10.4 07/30 [place] HEMATOLOGY RBC 4.54 4.20 - 07/30 MH 5.40 /2018 [place] HEMATOLOGY Hgb 12.2 12.0 - 07/30 MH 16.0 [place] HEMATOLOGY MCHC 31.6 32.0 - 07/30 MH 36.0 [place] HEMATOLOGY RDW 17.7 11.5 - 07/30 MH 14.5 /2018 [place] HEMATOLOGY MCH 26.9 27.0 - 07/30 MH 31.0 [place] HEMATOLOGY Hct 38.7 36.0 - 07/30 MH 48.0 [place] HEMATOLOGY MCV 85.2 80.0 - 07/30 MH 98.0 [place] ELECTROLYTE AGAP 7.3 10.0 - 07/29 MH S 20.0 [place] ELECTROLYTE eGFR 39 07/29 Result Comment: The [place] eGFR is calculated using the CKD-EPI formula. [...] 36 24 - 32 07/29 MH S [place] ELECTROLYTE Calcium Lvl 8.4 8.5 - 10.5 07/29 S [place] ELECTROLYTE BUN 62 7 - 22 07/29 MH S [place] ELECTROLYTE Potassium 4.3 3.5 - 5.1 07/29 MH S Lvl [place] ELECTROLYTE Creatinine 1.62 0.50 - 02 MH S Lvl 1.40 /2018 [place] ELECTROLYTE Sodium Lvl 138 135 - 145 02 MH S /2018 [place] ELECTROLYTE Chloride Lvl 99 95 - 109 07/29 MH S /2018 [place] ELECTROLYTE Glucose Lvl 85 70 - 99 07/29 MH S /2018 [place] HEMATOLOGY Lymphocytes 1.2 1.0 - 5.5 / MH # /2019 [place] HEMATOLOGY Monocytes # 0.7 0.0 - 0.8 07/29 MH /2018 [place] HEMATOLOGY Baso slight 07/29 MH [place] /2018 [place] HEMATOLOGY Basophils 0.4 0.0 - 1.0 07/29 /2018 [place] HEMATOLOGY Neutrophils 2.6 1.5 - 8.1 07/29 MH # /2018 [place] HEMATOLOGY Lymphocytes 26.2 20.0 - 07/29 MH 40.0 [place] HEMATOLOGY Monocytes 15.0 2.0 - 12.0 07/29 /2018 [place] HEMATOLOGY Plt Morph Normal 07/29 MH (07/29/18 4:10 AM) [facility] HEMATOLOGY RBC Morph Normal 07/29 MH (07/29/18 4:10 AM) /2018 [facility] HEMATOLOGY Segs 58.1 45.0 - 07/29 MH 75.0 [place] HEMATOLOGY Eosinophils 0.3 0.0 - 4.0 07/29 /2018 [place] HEMATOLOGY Hct 38.5 36.0 - 07/29 MH 48.0 [place] HEMATOLOGY MPV 7.5 7.4 - 10.4 07/29 /2018 [place] HEMATOLOGY Platelet 201 133 - 450 07/29 [place] HEMATOLOGY MCHC 32.3 32.0 - 07/29 MH 36.0 [place] HEMATOLOGY RDW 17.8 11.5 - 07/29 MH 14.5 [place] HEMATOLOGY Hgb 12.5 12.0 - 07/29 MH 16.0 [place] HEMATOLOGY RBC 4.61 4.20 - 07/29 MH 5.40 [place] HEMATOLOGY MCV 83.6 80.0 - 07/29 MH 98.0 [place] HEMATOLOGY MCH 27.0 27.0 - 07/29 MH 31.0 [place] HEMATOLOGY WBC 4.5 3.7 - 10.4 07/29 [place] CHEM PANEL Magnesium 2.1 1.8 - 2.4 07/27 Lvl [place] CHEM PANEL Magnesium 1.7 1.8 - 2.4 07/26 Lvl [place] CHEM PANEL Uric Acid 6.6 2.5 - 7.0 07/25 [place] CHEM PANEL Phosphorus 5.4 2.5 - 4.5 07/25 [place] CHEM PANEL Magnesium 1.9 1.8 - 2.4 07/25 Lvl [place] Gram Stain Gram Stain 07/25 Report Performed [place] By: [facility] Culture: Normal 07/25 Respiratory Respirator [place] w/Gram Stain y Riya Isolated CARDIAC Troponin-I <0.02 0.00 - 07/25 ENZYMES 0.40 [place] URINE AND UA Bili Negative Negative 07/24 STOOL *NA* [place] (07/24/18 5:02 PM) URINE AND UA Leuk Est Small Negative 07/24 STOOL *ABN* [place] (07/24/18 5:02 PM) URINE AND UA Nitrite Negative Negative 07/24 STOOL (07/24/18 5:02 PM) [place] URINE AND UA WBC 1 0 - 5 07/24 STOOL [place] URINE AND UA Sq Epi Few /LPF Few /LPF 07/24 STOOL [place] URINE AND UA RBC <1 0 - 2 07/24 STOOL [place] URINE AND UA Mucus Few /LPF None Seen 07/24 STOOL /LPF /2018 [place] URINE AND UA Bacteria Occasional None Seen 07/24 STOOL /HPF /HPF [place] URINE AND UA Blood Small Negative 07/24 STOOL *ABN* [place] (07/24/18 5:02 PM) URINE AND UA <=1.0 0.1 - 1.0 07/24 STOOL Urobilinogen mg/dL [place] URINE AND UA Hyal Cast 1 0 - 2 07/24 STOOL [place] URINE AND UA Glucose Negative Negative 07/24 STOOL *NA* [place] (07/24/18 5:02 PM) URINE AND UA Ketones Negative Negative 07/24 STOOL *NA* [place] (07/24/18 5:02 PM) URINE AND UA Color Yellow Yellow 07/24 STOOL *NA* /2018 [place] (07/24/18 5:02 PM) URINE AND UA Spec Grav 1.010 <=1.030 07/24 STOOL /2018 [place] URINE AND UA Turbidity Slight Clear 07/24 STOOL *ABN* [place] (07/24/18 5:02 PM) URINE AND UA pH 5.0 5.0 - 8.0 07/24 STOOL [place] URINE AND UA Protein Negative Negative 07/24 STOOL (07/24/18 5:02 PM) /2018 [facility] URINE CHEM U Chloride 101 07/24 [place] URINE CHEM U Sodium 97 07/24 [place] URINE CHEM U Potassium 21.5 07/24 [place] URINE CHEM U Protein 37.8 07/24 [place] URINE CHEM U Prot/Creat 0.56 07/24 [place] URINE CHEM U Creatinine 67.40 07/24 [place] URINE CHEM U Osmolality 461 300 - 800 07/24 [place] CARDIAC Troponin-I <0.02 0.00 - 07/24 ENZYMES 0. [place] CARDIAC proBNP 1109 0 - 125 07/24 ENZYMES /2018 [place] CHEM PANEL Procalcitoni 0.22 0.00 - 07/24 n Lvl 0.10 [place] BACTERIAL - MRSA by PCR Negative 07/24 SEROLOGY (07/24/18 4:47 AM) [place] and CARDIAC Troponin-I <0.02 0.00 - 07/24 ENZYMES 0. [place] CHEM PANEL Bili Total 0.2 0.2 - 1.3 07/24 [place] CHEM PANEL Total 8.7 6.4 - 8.4 07/24 [place] CHEM PANEL B/C Ratio 21 6 - 25 07/24 [place] CHEM PANEL Albumin Lvl 2.9 3.5 - 5.0 07/24 [place] CHEM PANEL A/G Ratio 0.5 0.7 - 1.6 07/24 [place] CHEM PANEL AST 21 0 - 37 07/24 [place] CHEM PANEL ALT 9 0 - 65 07/24 [place] CHEM PANEL Alk Phos 60 39 - 136 07/24 [place] CHEM PANEL Globulin 5.8 2.7 - 4.2 07/24 [place] Pathology Reports No Data Provided for This Section Diagnostic Reports Report Value Date Source Chest 1view DX Clinical Indication: - respiratory distress. [facility] Comparison: 07/24/2018. FINDINGS: Portable AP chest radiograph is performed. LUNGS: Normal lung volumes. Increased mild perihilar lung interstitial opacities are seen, suggestive of mild pulmonary edema. Some tiny left midlung zone patchy airspace opacities are seen, which are n onspecific. Unchanged enlarg ed central pulmonary arteries are seen, suggestive of [...] pulm onary arteries seen, suggestive of pulmonary art erial hypertension. SL: [id number] Retroperitoneal Complete Patient Name: OLIVER FLOWER 07/24/2018 [facility] US : 1955; Age: 62 years Female MR: [id number] Study: Retroperitoneal Complete US 07/24/2018 9:3 0 REGISTRAR ASSISTANT Clinical Indication: - ADOLFO. COMPARISON: None TECHNIQUE: Multiple longitudinal and tr ansverse real time sonographic images of the kidneys and urinary bladder are obtained. Ventilator status, inability to control breath-holding and patient body habitus limits detail. FINDINGS: KIDNEY: The right kidney measures 10 .2 x 4.8 x 4.7 cm. The renal cortical thickness measures 1.0 cm. The left kidney measures 10. 0 x 5.0 x 3.8 cm. The renal cortical thickness measures 1.0 cm. The kidneys are normal in si ze, shape, contour, and position. The corticomedullary differentiation is maintained. There is no hydronephrosis. There is no nephrolithiasis. There are no abnormal perinephric collections. BLADDER: Scanning through the pelvis reveals the bladder to be partially distended with anechoic urine. AORTA AND IVC: The visualized portions appe ar unremarkable. The proximal common iliac arteries are obscured by bowel gas. ASCITES: No ascites noted. IMPRESSION: Normal renal ultrasound. SL: [id number] Chest 1view DX Clinical Indication: - hypoxia. 07/24/2018 [facility] Comparison: 06/05/2012. FINDINGS: Portable AP chest radiograph is performed. LUNGS: Small lung volumes. M ild perihilar pulmonary vascular congestion is seen. Mild bilateral basilar atelectasis/interstitial opacities are seen. Age- related interstitial prominence is seen in the abbey ngs. Suspected small right and tiny left pleural effusions. No pneumothorax. HEART AND MEDIASTINUM: Ther e is unchanged mild cardiomegaly. Unchanged enlarged bilateral central pulmonary arteries are seen. This can be seen with pulmonary arterial hypertension. The trachea is midline. OSSEOUS STRUCTURES: No acute abnormality seen. IMPRESSION: 1. Small lung volumes. Mild perihilar pulmonary vascular congestion. Mild bilateral basilar atelectasis/interstitial opacities. Suspected small right and tiny left pleural effusions. 2. Unchanged mild cardiomega ly. Unchanged enlarged bilateral central pulmonary arteries. This can be seen with pulmonary arterial hypertension. SL: [id number] Ext Lower Venous Doppler Exam: Ext Lower Venous Doppler Bilat US 07/24/2018 [facility] Bilat US Clinical Indication: - possible DVT. Comparison: None. TECHNIQUE: Sonographic evaluation of th e bilateral lower extremity veins was performed using high resolution B-mode imaging, along with pulse and color Doppler imaging. FINDINGS: Right lower extremity: The common femoral vein, sup erficial femoral vein, popliteal vein and visualized posterior tibial/calf veins are patent. There is no echogenic debris to suggest deep quentin ous thrombosis. The saphenofemoral junction is unremarkable. Left lower extremity: The common femoral vein, sup erficial femoral vein, popliteal vein and visualized posterior tibial/calf veins are patent. There is no echogenic debris to suggest deep quentin ous thrombosis. The saphenofemoral junction is unremarkable. IMPRESSION: 1. No deep venous thrombosis of bilateral lower extremities. REFERENCE: Deep veins include: common f emoral vein, superficial femoral vein (also can be referred to as 'femoral vein'), popliteal vein, posterior tibial vein Superficial veins include: greater and lesser sa phenous veins SL: [id number] Consultation Notes No Data Provided for This Section Discharge Summaries No Data Provided for This Section History and Physicals No Data Provided for This Section Vital Signs Vital Sign Value Date Comments Source Temperature Oral (F) 98.3 F 08/01/2018 [facility] Heart Rate 81 08/01/2018 [facility] Systolic (mm Hg) 112 08/01/2018 [facility] Diastolic (mm Hg) 73 08/01/2018 [place] Respitory Rate 18 08/01/2018 [facility] Systolic (mm Hg) 106 08/01/2018 [facility] Diastolic (mm Hg) 65 08/01/2018 [place] Respitory Rate 22 08/01/2018 [facility] Heart Rate 86 08/01/2018 [facility] Temperature Oral (F) 97.8 F 08/01/2018 [facility] Respitory Rate 18 08/01/2018 [facility] Temperature Oral (F) 98.2 F 08/01/2018 [facility] Heart Rate 69 08/01/2018 [facility] Systolic (mm Hg) 144 08/01/2018 [facility] Diastolic (mm Hg) 81 08/01/2018 [place] Height 167.64 cm 07/24/2018 [facility] BMI Calculated 37.9 07/24/2018 [facility] Weight 106.5 07/24/2018 [facility] Encounters Location Location Encounter Encounter Reason Attending ADM DC Stat us Source Details Type Number For Provider Date Date Visit [id number] [facility] Procedures Procedure Code Date Perfomer Comments Source section [id number] [place] and Assessment and Plan Assessment and Plan Date Source Extracted from:Title: Pulmonary progress note 08/01/2018 [facility] Author: Cory Graf MD Date: 08/01/18 [facility]monary [facility] Critical Care Progress Note Cory Graf MD Subjective/overnight events: No acute events overnight. Patient has been weaned off high flow nasal cannula oxygen. Denies any new constitutional complaints. Eager to go home. Discussed outpatient pulmonary follow-up. Chart reviewed patient examined Review of systems: General: No fever, no chills, no night sweats, no significan t pain Respiratory: No dyspnea, no persistent c ough, no sputum production, no hemoptysis Cardiac: No chest pain, no palpitations, no lower extremity edema Gastro: No diarrhea, no nausea, no vomiting, no constipation Scheduled Meds (13): 07/24/18 albuterol-ipratropium (albutero l-ipratropium 2.5-0.5 mg inhalation solution) 3 mL NEB [...] Labs (Last four charted values) WBC 5.8 (FEB 26) 5.4 (FEB 25) 4.5 (FEB 24) 5.6 (FEB 23) Hgb 12.9 (FEB 26) 12.2 (FEB 25) 12.5 (FEB 24) 13.4 (FEB 23) Hct 39.0 (FEB 26) 38.7 (FEB 25) 38.5 (FEB 24) 43.0 (FEB 23) Plt 250 (FEB 26) 220 (FEB 25) 201 (FEB 24) 218 (FEB 23) Na 138 (FEB 26) 137 (FEB 25) 138 (FEB 24) 137 (FEB 23) K 4.1 (FEB 26) 4.3 (FEB 25) 4.3 (FEB 24) 4.7 (FEB 23) CO2 H 33 (FEB 26) H 36 (FEB 25) H 36 (FEB 24) H 35 (FEB 23) Cl 97 (FEB 26) 97 (FEB 25) 99 (FEB 24) 97 (FEB 23) Cr H 1.51 (FEB 2 6) H 1.64 (FEB 25) H 1.62 (FEB 24) H 1.47 (FEB 23) BUN H 67 (FEB 26) H 66 (FEB 25) H 62 (JUL 29) H 55 (JUL 28) Glucose Random 88 (JUL 31) 91 (JUL 30) 85 (JUL 29) H 117 (JUL 28) Mg 2.1 (JUL 27) L 1.7 (F EB 21) 1.9 (JUL 25) Phos H 5.4 (JUL 25) Ca 9.0 (JUL 31) L 8.4 (JUL 30) L 8.4 (JUL 29) 8.7 (JUL 28) Troponin <0.02 (JUL 24 ) <0.02 (JUL 24) <0.02 (JUL 24) Objective: I&O Record In Out Bal 08/01 24hr Tot 0 0 0 07/31 24hr Tot 8 0 8 Lines, Tubes, and Drains: 07/31/2018 10:15 Peripheral Lines: Forea rm Left 22 gauge Over the needle catheter 08/01/2018 08:26 Oxygen Therapy Mode Nasal cannula SpO2 percent 96 O2 Sat Location Right hand/finger 07/31/2018 19:56 FIO2 (%) 40 Vital Signs (last 24 hrs) Last Charted _ Temp Oral 97.8 DegF (AUG 01 08:26) Heart Rate Peripheral 86 bpm (AUG 01 08:26) Resp Rate H 22BRMIN (AUG 01 08:26) SBP 106 mmHg (AUG 01 08:26) DBP 65 mmHg (AUG 01 08:26) SpO2 96 % (AUG 01 08:26) Exam: General: not in any distress, cannula oxygen in place. HEENT: no pallor, anicteric sclera Cardiovascular: regular, no murmur Respiratory: Trace scattered wheezes Abdomen: soft, non-tender, +BS Extremities: no edema, no cyanosis Neurologic: Awake, Nonfocal Skin: no breakdown Problems: Acute on chronic hypoxemic and hypercapneic respiratory fail ure, improving COPD with exacerbation Possible pulmonary hypertension Diastolic CHF with exacerbation Community acquired pneumonia, treatment complete Mild pulmonary venous congestion CKD Tobacco abuse Hypertension Plan: Continue nasal cannula oxygen as needed to maintain O2 saturation 89-92%, patient back to baseline requirements at home at 3 L/min with acceptable oxygen saturations. Continue diuretics for volume optimization. Some suggestion of pulmonary hypertensi on with mildly dilated right atrium on TTE as well as findings on chest x-ray, in setting of chronic hypoxia would suspect WHO class III pH, diuresis as above For COPD continue Duonebs, budesonide n ebs, and prednisone daily to complete 5 days of therapy Completed course of antibiotics for com munity acquired pneumonia, complete course of Tamiflu Counseled on tobacco cessation Patient okay to discharge home from pulm onary perspective and will plan to follow-up in [...] to patient. Diagnosis CKD (chronic kidney disease) (RYB30-UB N18.9, Working, Medic al). COPD (SOD10-JC J44.9, Working, Medical). Diastolic CHF (SJO01-VG I50.30, Working, Medical). HTN (hypertension) (ODF24-FV I10, Working, Medical). Influenza and pneumonia (DWM27-DX J11.00, Working, Medical). Obesity (LTV92-OB E66.9, Working, Medical). Smoker (FUJ88-DB F17.200, Working, Medical). Course Improving. Education and Follow-up Counseled: patient. Extracted from:Title: Nephrology consultation Author: Osbaldo Chen MD Date: 07/24/18 Impression and Plan 60-year-old female with history of hyper tension, COPD, chronic kidney disease, diastolic congestive heart failure, admitted with shortness of breath. 1. Hyperkalemia.Patient was on potassiu m supplementation and ARB. Patient received initial medical treatment already. We will repeat the potassium level. 2. Hyponatremia. Mild. 3. Acute kidney injury on chronic kidne y disease versus chronic kidney disease. Unknown creatinine baseline. 4. Hypercapnic hypoxic respiratory failure. 5. COPD exacerbation. 6. Hypertension. 7. Diastolic congestive heart failure. Recommendations: Renal diet, once patient tolerates p.o. Patient already received medical treatme nt. We will repeat potassium level. Further recommendation [...] nephrotoxic medications, NSAID. Any question, please call [phone]. Extracted from:Title: General Admission H&P * Author: Santana Sykes MD Date: 07/24/18 Impression and Plan -Influenza bronchitis with superimposed possible bacterial pneumonia, organism unspecified Tamiflu, IV steroids, duo nebs Cefepime, pharmacy dosing vancomycin -Acute hypercarbic and hypoxic respirato ry failure secondary to influenza bronchitis Pulmonary consult [...] History Date Source Social History TypeResponse 07/24/2018 [facility] Smoking Status Current every day smoker; Type: Cigarett es; Ready to change: No; Concerns about tobacco [...]
[2020-01-13] MEDS ORDERED: Levofloxacin500mg IV 500 MG/100 ML BAG IV ONE (18:15)
[2020-01-13] MEDS ORDERED: VANCOMYCIN/NS 1 gm 1 GM/250 ML BAG IV ONE (18:15)
[2020-01-13] MEDS ORDERED: ONDANSETRON 4 MG/2 ML VIAL ONE (19:37)
[2020-01-13] MEDS ORDERED: MORPHINE 4 MG/ML SYR ONE (19:37)
[2020-01-13 19:39] LABS: Basophils % 0.7 % (0-1.3); Lymphocytes % 14.8 % (15.3-44.8)
[2020-01-13 19:43] LABS: Absolute Lymphocytes (CBC) 1.4 K/uL (0.7-4.9); Hematocrit 25.6 % (36.0-45.0); MPV 7.2 fL (7.6-11.3)
[2020-01-13 19:55] LABS: ALT/SGPT 10 U/L (12-78); AST/SGOT 10 U/L (15-37); Albumin 2.5 g/dL (3.4-5.0); Alkaline Phosphatase 60 U/L (45-117); BUN Blood Urea Nitrogen 33 mg/dL (7-18); Bicarbonate 25 mmol/L (21-32); Bilirubin Direct < 0.1 mg/dL (0-0.2); Bilirubin Total 0.1 mg/dL (0.2-1.0); Glucose Level 93 mg/dL (74-106); Potassium 4.8 mmol/L (3.5-5.1); Protein, Total 8.9 g/dL (6.4-8.2); Sodium Level 137 mmol/L (136-145)
[2020-01-13 20:23] LABS: Blood Morphology Comment NOTED (NOT SEEN); Platelet Estimate INCR; Poikilocytosis 1+; Urine White Blood Cell Casts OK
--- NOTE | 2020-01-13 21:10 | P.HP ---
Certification for Inpatient With expected LOS: >2 Midnights Patient will require the following post-hospital care: None Practitioner: I am a practitioner with admitting privileges, knowledge of patient current condition, hospital course, and medical plan of care. Services: Services provided to patient in accordance with Admission requirements found in Title 42 Section 412.3 of the Code of Federal Regulations Patient History Date of Service: 01/13/20 Primary Care Provider: Francisco Javier Shaffer Reason for admission: Cellulitis/acute on chronic renal failure History of Present Illness: 64-year-old female with a past medical history of COPD currently on 2 L nasal cannula at home, diastolic chronic congestive heart failure, hyperlipidemia, essential hypertension, chronic kidney disease and chronic skin abscesses presents to the emergency room complaining of worsening purulent discharge and increasing pain on the inner thighs. Patient has a history of chronic skin abscesses and has had skin abscesses going back to age of 8. Patient states that for the past week she has had worsening inner thigh pain and is now noting purulent discharge from several skin abscesses. Patient was treated in the ED on 08/23/2019 for similar symptoms. Patient was given oral antibiotics at that time but states that this skin abscesses never really fully healed. In the emergency room patient is found to have several inner thigh abscesses with purulent discharge. She is also noted to have a hemoglobin of 7.9 despite having a history of chronic anemia. Patient's normal hemoglobin is around 10.0. Her hematocrit on arrival is 25.6 which is lower than her normal level. She is also noted to have an elevated platelet count of 513 and a CRP of 144. Her creatinine levels were also elevated at 2.52. Her usual baseline is 1.8. 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 On examination the patient is calm. She is not in distress. Her vitals are normal and she is at her baseline with her oxygen requirements. She states that she uses oxygen at 2 L nasal cannula at home and that she should be using a CPAP of bed her machine has not worked in some time and she is not been able to schedule a sleep study. She is noted to have purulent discharge from several abscesses on the inner thigh. The area around the groin also looks inflamed with developing cellulitis. Her pain is controlled now after IV morphine. She also denies bloody stools or hematemesis. Denies urinary symptoms as well. Patient will be admitted and further evaluated. Allergies codeine Allergy (Verified 01/22/19 20:01) Anaphylaxis Penicillins Allergy (Verified 01/23/19 02:30) Anaphylaxis Sulfa (Sulfonamide Antibiotics) Allergy (Verified 01/22/19 20:01) Anaphylaxis Home medications list reviewed: No Home Medications: Albuterol Sulfate [Proair Hfa] 8.5 gm IH Q4HP PRN 01/23/19 Amlodipine [Norvasc*] 5 mg PO DAILY 01/23/19 Aspirin Chewable [Aspirin Chewable*] 81 mg PO DAILY 01/23/19 Atorvastatin Calcium [Lipitor*] 20 mg PO BEDTIME 01/23/19 Cetirizine HCl 10 mg PO DAILY 01/23/19 Cholecalciferol (Vitamin D3) [Vitamin D3] 2,000 unit PO DAILY 01/23/19 Clopidogrel Bisulfate [Plavix*] 75 mg PO DAILY 01/23/19 Fluticasone [Flonase 50MCG Nasal [place]*] 2 sprays NS DAILY 01/23/19 Fluticasone/Umeclidin/Vilanter [Trelegy Ellipta 100-62.5-25] 1 inh IH DAILY 01/23/19 Montelukast Sodium [Singulair] 10 mg PO BEDTIME 01/23/19 Nebivolol HCl [Bystolic*] 5 mg PO DAILY 01/23/19 Torsemide 5 mg PO DAILY 01/23/19 allopurinoL [Allopurinol] 100 mg PO DAILY 01/23/19 Albuterol Neb [Proventil 0.083% Neb Soln] 2.5 mg NEB Q4HP PRN #60 amp 01/25/19 Arformoterol Tartrate [Brovana] 15 mcg NEB BIDRESP #60 vial.neb 01/25/19 levoFLOXacin [Levaquin] 500 mg PO DAILY #7 tab 01/25/19 predniSONE [Deltasone] 10 mg PO BID #20 tab 01/25/19 - Past Medical/Surgical History Diabetic: No -: CHF -: COPD -: Gout -: Hyperlipidemia -: HTN -: Csection Psychosocial/ Personal History: Lives at home - Family History Father -: Cancer Mother -: Cancer - Social History Smoking Status: Never smoker Alcohol use: No CD- Drugs: No Caffeine use: Yes Place of Residence: Home Review of Systems General: As per HPI Eyes: Unremarkable ENT: Unremarkable Respiratory: Shortness of Breath Cardiovascular: Unremarkable Gastrointestinal: Unremarkable Genitourinary: Unremarkable Musculoskeletal: Unremarkable Integumentary: Lesions (Bilateral inner thigh/groin skin abscesses), As per HPI Neurological: Unremarkable Physical Examination - Vital Signs Temperature: 97 F Blood Pressure: 113/57 Pulse: 83 Respirations: 18 Pulse Ox (%): 97 (2 L NC) - Physical Exam General: Alert, In no apparent distress, Oriented x3 HEENT: Atraumatic, Normocephalic, PERRLA Neck: Supple, No Thyromegaly, Other (Trachea midline) Respiratory: Clear to auscultation bilaterally, Diminished Cardiovascular: Normal pulses, Regular rate/rhythm, Edema (+1 bilateral lower extremity) Capillary refill: <2 Seconds Gastrointestinal: Normal bowel sounds, Soft and benign, Non-distended Musculoskeletal: No clubbing, No swelling, No contractures Integumentary: No rashes, No breakdown, No significant lesion Neurological: Normal gait, Normal speech, Normal strength at 5/5 x4 extr Lymphatics: Inguinal lymphadenopathy - Studies Laboratory Data (last 24 hrs) 01/13/20 18:59: Sodium 137, Potassium 4.8, BUN 33 H, Creatinine 2.52 H, Glucose 93, Total Bilirubin 0.1 L, AST 10 L, ALT 10 L, Alkaline Phosphatase 60 01/13/20 18:59: WBC 9.4, Hgb 7.9 L*, Hct 25.6 L, Plt Count 513 H Assessment and Plan - Plan Impression: Cellulitis of the inner thighs/groin area: History of chronic skin abscess complicated by bilateral skin abscesses with purulent discharge currently: Acute on chronic renal failure: Anemia of chronic disease: History of congestive heart failure: Chronic hypoxic respiratory failure, currently at baseline at 2 L nasal cannula: Hyperlipidemia: Essential hypertension: Plan: Cellulitis of the inner thighs/groin area: Erythematous and swollen inner thighs bilaterally with multiple skin abscesses and purulent discharge noted. Patient will be started on IV vancomycin and IV Levaquin that will need to be renally dosed. Infectious Disease consulted. History of chronic skin abscess complicated by bilateral skin abscesses with purulent discharge currently: Patient has a history of multiple skin abscesses over multiple years. Last seen in August of 2019 for similar abscess on the inner groin of both legs. Patient returns today with purulent discharge from large abscesses on the inner thigh. She is started on IV vancomycin and IV levofloxacin to be renally dosed by pharmacy. Blood cultures and wound cultures were taken prior to initiation of antibiotics. Patient will likely require IV antibiotic therapy. Id consult in place due to history of for recurring skin abscess. Patient also at higher risk of MRSA. Wound care consult in place. Will consider surgical evaluation for possible debridement of abscesses. Acute on chronic renal failure: Patient's creatinine level is noted to be 2.5 on arrival to ED. Patient's usual baseline is 1.8. Patient may be volume depleted. Will gently hydrate with IV fluids Overnite. Patient does have a history of chronic diastolic heart failure and chronic hypoxic respiratory failure. Will consult Nephrology. Anemia of chronic disease: Patient has history of chronic anemia with hemoglobin levels approximately 10.0. ED blood work shows a hemoglobin of 7.9. Patient denies active bleeding or bloody stools. Monitor hemoglobin levels. Patient may require blood transfusion and further work up before discharge. History of congestive heart failure: Likely diastolic and chronic based on echocardiogram from 01/23/2019 which showed a normal left ventricular function, left ventricular hypertrophy and impaired relaxation. Chronic hypoxic respiratory failure, currently at baseline at 2 L nasal cannula: Patient is currently at baseline. Patient uses home oxygen at 2 L nasal cannula. Patient states that she should be wearing a CPAP at night but her machine does not work and she has not been able to set up a sleep study to have a new machine ordered. Hyperlipidemia: Will resume home medications once verified. Essential hypertension: Will resume all medications once verified. Discharge Plan: Home Plan to discharge in: Greater than 2 days - Advance Directives Does patient have a Living Will: No Does patient have a Durable POA for Healthcare: No - Code Status/Comfort Care Code Status Assessed: Yes Time Spent Managing Pts Care (In Minutes): 55
[2020-01-13] MEDS ORDERED: ACETAMINOPHEN 500 MG TAB PO PRN (22:09)
[2020-01-13 22:31] VITALS: BMI 36.7
[2020-01-13] MEDS: NA CHLORIDE 0.9% 1,000 ML IV SCH (22:58)
--- NOTE | 2020-01-14 02:02 | CON ---
Date of Consultation: 01/13/2020 Chief Complaint: Acute on chronic kidney injury. History Of Present Illness: The patient has chronic kidney disease stage 3. Her baseline creatinine level 1.6. She presented to the hospital because of shortness of breath. She has COPD, on 2 L nasal cannula at home. She has multiple medical problems including diastolic congestive heart failure, hyperlipidemia, hypertension, chronic skin infection. She was complaining of purulent discharge and increasing pain in the inner thigh due to abscess. The patient has history of chronic recurrent infection with cellulitis and abscess formation. In the emergency room, she was found to have several abscesses with purulent discharge and she was anemic with hemoglobin of 7.9. Her normal baseline hemoglobin is 10. The patient is admitted because of acute kidney injury, creatinine level was up to 2.5. Past Medical History: Chronic kidney disease, hypertension, hypertensive heart and kidney disease, COPD, gout, hyperlipidemia, , congestive heart failure with diastolic dysfunction, chronic recurrent cellulitis. Family History: Father with cancer. Mother with cancer. Social History: Denies tobacco, alcohol, or illicit drugs. Review of Systems: Eyes: No new vision changes. ENT: No discharge. No oozing. Respiratory: No shortness of breath, although she has some congestion in the chest. Cardiovascular: No chest pain. No palpitation. No syncope. GI: No nausea. No vomiting. : Denies dysuria or hematuria. Musculoskeletal: No muscle aches. Gout. Physical Examination: Vital Signs: Blood pressure 113/57, heart rate 83, respiratory rate 18, temperature 97, pulse oximeter 97% on 2 L nasal cannula. General: The patient is oriented, not in apparent distress. Eyes: Anicteric sclerae. EOMI. Ears, Nose, Mouth, and Throat: Oral mucosa moist. No pallor. Neck: Supple. No bruits. Lungs: Diminished breath sounds at bases. Heart: S1, S2. Abdomen: Soft, benign, nontender. Extremities: 1+ edema in both legs. Neurologic: Moving extremities. Cranial nerves intact. Laboratory Data: Sodium 157, potassium 4.6, BUN 33, creatinine 2.52, glucose 93, total bilirubin 0.1. Hemoglobin 7.9, WBC 9.4, platelet count 513. Impression And Plan: 1. Acute on chronic kidney injury. The patient may benefit from IV fluids. Continue hydration. Plan is to check renal ultrasound for an evidence of hydronephrosis and check proteinuria panel. 2. Cellulitis. Continue antibiotics and wound care. The patient may need to be evaluated by Surgical team. 3. Congestive heart failure. Monitor for an evidence of fluid overload on diuretic as needed. 4. Anemia, acute on chronic. Plan blood transfusion and evaluate iron source. 5. Congestive heart failure, likely diastolic. The patient will continue blood pressure medication. Monitor for an evidence of fluid overload. LA/FRANSISCA Voice ID: [id number] Report ID: [id number]
[2020-01-14 05:11] LABS: Absolute Lymphocytes (CBC) 1.5 K/uL (0.7-4.9); Basophils % 1.2 % (0-1.3); Hematocrit 22.1 % (36.0-45.0); Lymphocytes % 17.2 % (15.3-44.8); RBC Red Blood Cell Count 2.79 M/uL (3.86-4.86)
[2020-01-14 05:30] LABS: Albumin 2.3 g/dL (3.4-5.0); Bilirubin Total 0.2 mg/dL (0.2-1.0); Magnesium 1.8 mg/dL (1.8-2.4); Potassium 4.4 mmol/L (3.5-5.1); Protein, Total 8.4 g/dL (6.4-8.2)
[2020-01-14] MEDS ORDERED: MORPHINE 4 MG/ML SYR IV PRN (05:42)
[2020-01-14] MEDS ORDERED: MAGNESIUM SULFATE 1 gm IVPB 1 GM/100 ML BAG IV ONE (06:40)
--- NOTE | 2020-01-14 07:30 | EDPHYS ---
Physician Documentation [facility] Name: Deanna Flores Age: 64 yrs Sex: Female : 1955 Arrival Date: 01/13/2020 Time: 17:12 Bed 8 Private MD: Francisco Javier Shaffer ED Physician Nadir Akins HPI: 01/12 18:13 This 64 yrs old Black Female presents to ER via Wheelchair with complaints of Leg jr8 Infection. 18:13 the patient presents with a swollen area of the pelvis, right leg and left leg. jr8 Description: The affected area is moderate sized, draining, erythematous, swollen. Onset: The symptoms/episode began/occurred gradually, 7 month(s) ago. Possible cause(s): unknown. Associated signs and symptoms: The patient has no apparent associated signs or symptoms. Modifying factors: the symptoms are alleviated by nothing, the symptoms are aggravated by pressure, sitting, squeezing the lesion and expressing the contents, touching. Severity of symptoms: At their worst the symptoms were moderate, in the emergency department the symptoms are unchanged. The patient has experienced similar episodes in the past, several times. The patient has not recently seen a physician. Patient stated that she has had "some kind" of skin problem since she was young where she would have to have boil like structures I\\T\\D'd from her body. Stated that she started with multiple abscess like lesions several months ago. Has been on two rounds of Abx prior to this but still not getting better . Historical: - Allergies: 17:17 Sulfa (Sulfonamide Antibiotics); ll1 17:17 Codeine; ll1 - PMHx: 17:17 "enlarged heart"; Gout; COPD; CHF; Hyperlipidemia; Hypertension; ll1 - PSHx: 17:17 ; ll1 - Immunization history:: Flu vaccine is not up to date. - Social history:: Smoking status: Patient/guardian denies using tobacco, the patient reports quitting approximately 2 years ago, Patient/guardian denies using alcohol, street drugs. ROS: 18:46 Eyes: Negative for injury, pain, redness, and discharge, ENT: Negative for injury, jr8 pain, and discharge, Neck: Negative for injury, pain, and swelling, Cardiovascular: Negative for chest pain, palpitations, and edema, Respiratory: Negative for shortness of breath, cough, wheezing, and pleuritic chest pain, Abdomen/GI: Negative for abdominal pain, nausea, vomiting, diarrhea, and constipation, Back: Negative for injury and pain, MS/Extremity: Negative for injury and deformity, Neuro: Negative for headache, weakness, numbness, tingling, and seizure. 18:46 Skin: Positive for abscess, cellulitis. Exam: 18:46 Constitutional: This is a well developed, well nourished patient who is awake, alert, jr8 and in no acute distress. Eyes: Pupils equal round and reactive to light, extra-ocular motions intact. Lids and lashes normal. Conjunctiva and sclera are non-icteric and not injected. Cornea within normal limits. Periorbital areas with no swelling, redness, or edema. ENT: Nares patent. No nasal discharge, no septal abnormalities noted. Tympanic membranes are normal and external auditory canals are clear. Oropharynx with no redness, swelling, or masses, exudates, or evidence of obstruction, uvula midline. Mucous membranes moist. Neck: Trachea midline, no thyromegaly or masses palpated, and no cervical lymphadenopathy. Supple, full range of motion without nuchal rigidity, or vertebral point tenderness. No Meningismus. Cardiovascular: Regular rate and rhythm with a normal S1 and S2. No gallops, murmurs, or rubs. Normal PMI, no JVD. No pulse deficits. Respiratory: Lungs have equal breath sounds bilaterally, clear to auscultation and percussion. No rales, rhonchi or wheezes noted. No increased work of breathing, no retractions or nasal flaring. Abdomen/GI: Soft, non-tender, with normal bowel sounds. No distension or tympany. No guarding or rebound. No evidence of tenderness throughout. Back: No spinal tenderness. No costovertebral tenderness. Full range of motion. MS/ Extremity: Pulses equal, no cyanosis. Neurovascular intact. Full, normal range of motion. Neuro: Awake and alert, GCS 15, oriented to person, place, time, and situation. Cranial nerves II-XII grossly intact. Motor strength 5/5 in all extremities. Sensory grossly intact. Cerebellar exam normal. Normal gait. 18:46 Skin: Patient has multiple abscess like lesions with purulent drainage noted to inner thighs on both sides. Other infective lesions noted to mons pubic region as well with induration . Vital Signs: 17:17 BP 103 / 57; Pulse 85; Resp 18; Temp 97.9; Pulse Ox 98% ; Weight 109.32 kg; Height 5 ll1 ft. 6 in. (167.64 cm); Pain 7/10; 18:24 BP 114 / 62; Pulse 73; Resp 20; Pulse Ox 100% on R/A; jr10 19:00 BP 122 / 83; Pulse 81; Resp 16; Pulse Ox 100% on 3 lpm NC; Pain 10/10; jb4 20:00 BP 123 / 50; Pulse 77; Resp 16; Pulse Ox 100% on 3 lpm NC; jb4 21:00 BP 126 / 57; Pulse 74; Resp 18; Pulse Ox 100% on 3 lpm NC; jb4 21:49 Temp 97.9; jb4 17:17 Body Mass Index 38.90 (109.32 kg, 167.64 cm) ll1 MDM: 17:38 Patient medically screened. jr8 19:24 Data reviewed: vital signs, nurses notes, lab test result(s). Data interpreted: Pulse jr8 oximetry: on room air is 100 %. Interpretation: normal. Counseling: I had a detailed discussion with the patient and/or guardian regarding: the historical points, exam findings, and any diagnostic results supporting the discharge/admit diagnosis, lab results, the need for further work-up and treatment in the hospital. 01/12 17:58 Order name: IV; Complete Time: 18:21 jr8 Administered Medications: 19:17 Drug: LevaQUIN 500 mg Volume: 100 ml; Route: IVPB; Infused Over: 60 mins; Site: right jb4 wrist; 20:41 Follow up: IV Status: Completed infusion; IV Intake: 100ml rv 19:32 CANCELLED (Physician Discretion): morphine 4 mg IVP once; RASS on ADMIN: Combtv4, Very jr8 Agttd3, Agttd2, Rstlss1, AlertClm0, Drwsy-1, Lt Sdtn-2, Mod Sdtn-3, Dp Sdtn-4, UnArsble-5 19:32 Not Given (Physician Discretion): Zofran (Ondansetron) 4 mg IVP once; over 2 minutes jr8 19:35 Drug: Zofran (Ondansetron) 4 mg Route: IVP; Site: right wrist; jb4 20:00 Follow up: Response: No adverse reaction jb4 19:38 Drug: morphine 4 mg Route: IVP; Site: right wrist; jb4 20:00 Follow up: Response: No adverse reaction; Pain is decreased; RASS: Alert and Calm (0) jb4 20:41 Drug: vancoMYCIN 1 grams Route: IVPB; Infused Over: 2 hrs; Site: right antecubital; rv 21:55 Follow up: Response: No adverse reaction; IV Status: Infusion continued upon admission jb4 Disposition: 01/13/20 19:34 Hospitalization ordered by Jenna Arauz for Inpatient Admission. Preliminary diagnosis are Cellulitis of left lower limb, Cellulitis of right lower limb, Cutaneous abscess of groin. - Bed requested for Telemetry/MedSurg (Inpatient). - Status is Inpatient Admission. jb4 - Condition is Stable. - Problem is chronic. - Symptoms have worsened. Addendum: 01/20/2020 07:03 Co-signature as Attending Physician, Nadir Akins MD. r n Signatures: Nadir Akins MD MD rn Roszak, Josh, PA PA jr8 Daniela Barrera RN RN Scotty Garcia RN RN jb4 Tony Leal RN RN rv Lewis, Lynsay, RN RN ll1 Corrections: (The following items were deleted from the chart) 01/12 19:32 19:32 morphine 4 mg IVP once; RASS on ADMIN: Combtv4, Very Agttd3, Agttd2, Rstlss1, jr8 AlertClm0, Drwsy-1, Lt Sdtn-2, Mod Sdtn-3, Dp Sdtn-4, UnArsble-5 ordered. jb4 19:55 19:34 Hospitalization Ordered by Demetri Duran DO for Inpatient Admission. Preliminary jr8 diagnosis is Cellulitis of left lower limb; Cellulitis of right lower limb; Cutaneous abscess of groin. Bed requested for Telemetry/MedSurg (Inpatient). Status is Inpatient Admission. Condition is Stable. Problem is chronic. Symptoms have worsened. jr8 21:17 19:55 01/13/2020 19:34 Hospitalization Ordered by Jenna Arauz MD for Inpatient cg Admission. Preliminary diagnosis is Cellulitis of left lower limb; Cellulitis of right lower limb; Cutaneous abscess of groin. Bed requested for Telemetry/MedSurg (Inpatient). Status is Inpatient Admission. Condition is Stable. Problem is chronic. Symptoms have worsened. jr8 22:13 21:17 01/13/2020 19:34 Hospitalization Ordered by Jenna Arauz MD for Inpatient jb4 Admission. Preliminary diagnosis is Cellulitis of left lower limb; Cellulitis of right lower limb; Cutaneous abscess of groin. Bed requested for Telemetry/MedSurg (Inpatient). Status is Inpatient Admission. Condition is Stable. Problem is chronic. Symptoms have worsened. cg
--- NOTE | 2020-01-14 07:30 | ER ---
Nurse's Notes [facility] Name: Deanna Flores Age: 64 yrs Sex: Female : 1955 Arrival Date: 01/13/2020 Time: 17:12 Bed 8 Private MD: Francisco Javier Shaffer Diagnosis: Cellulitis of left lower limb;Cellulitis of right lower limb;Cutaneous abscess of groin Presentation: 01/12 17:17 Chief complaint: Patient states: Reports infection to both thighs that hasn't gone away ll1 since her visit her in August for the same. Took 2 rounds of antibiotics, no relief yet. No fever at home. Coronavirus screen: Client denies travel out of the [place] in the last 14 days. At this time, the client does not indicate any symptoms associated with coronavirus-19. Ebola Screen: Patient denies travel to an Ebola-affected area in the 21 days before illness onset. Initial Sepsis Screen: Does the patient meet any 2 criteria? No. Patient's initial sepsis screen is negative. Risk Assessment: Do you want to hurt yourself or someone else? Patient reports no desire to harm self or others. Onset of symptoms was August 15, 2019. 17:17 Acuity: JUDI 3 ll1 17:17 Method Of Arrival: Wheelchair ll1 Historical: - Allergies: 17:17 Sulfa (Sulfonamide Antibiotics); ll1 17:17 Codeine; ll1 - PMHx: 17:17 "enlarged heart"; Gout; COPD; CHF; Hyperlipidemia; Hypertension; ll1 - PSHx: 17:17 ; ll1 - Immunization history:: Flu vaccine is not up to date. - Social history:: Smoking status: Patient/guardian denies using tobacco, the patient reports quitting approximately 2 years ago, Patient/guardian denies using alcohol, street drugs. Screenin:00 Abuse screen: Denies threats or abuse. Denies injuries from another. Nutritional jr10 screening: No deficits noted. Tuberculosis screening: No symptoms or risk factors identified. Fall Risk No fall in past 12 months (0 pts). No secondary diagnosis (0 pts). IV access (20 points). Ambulatory Aid- None/Bed Rest/Nurse Assist (0 pts). Gait- Weak (10 pts.). Mental Status- Oriented to own ability (0 pts). Assessment: 18:00 General: Appears uncomfortable, Behavior is calm, cooperative, appropriate for age. jr10 Pain: Complains of pain in groin, right inner thigh, medial aspect of right thigh, left inner thigh and medial aspect of left thigh. Neuro: No deficits noted. Cardiovascular: No deficits noted. Respiratory: No deficits noted. Airway is patent Respiratory effort is even, unlabored, Respiratory pattern is regular, symmetrical. GI: No deficits noted. No signs and/or symptoms were reported involving the gastrointestinal system. : No deficits noted. No signs and/or symptoms were reported regarding the genitourinary system. EENT: No deficits noted. No signs and/or symptoms were reported regarding the EENT system. Derm: Abscess located on left gluteal fold, right gluteal fold, groin, right inner thigh, medial aspect of right thigh, left inner thigh and medial aspect of left thigh has purulent drainage, is hot to touch, is red, is raised, Reports pain. Musculoskeletal: No deficits noted. No signs and/or symptoms reported regarding the musculoskeletal system. 18:21 Reassessment: lab paged for blood draw on patient, pt noted to be a difficult stick. jr10 19:09 Reassessment: Lab unable to obtain blood. This nurse was able to obtain one pedi jr10 culture and labs with 25G butterfly needle to left hand, blood sent to lab. HANS Recinos aware of inability to obtain second blood culture. Report handed off to ARELI Cerna. 19:17 Reassessment: PT is resting in bed with eyes open. Responds to verbal stimuli. Is awake jb4 and alert x4. respirations are even and unlabored. Maintained 20g to the right wrist. IV flushes with ease, does not draw blood, site is clean dry and intact. No s/s of distress noted. Pt reports pain is 10/10. Provider notified, see MAR for orders. 20:00 Reassessment: Pt is resting comfortably in bed. PT remains A\\T\\O x4. respirations are jb4 even and unlabored. No s/s of distress noted. Fluids infusing without complication. Patient states feeling better. 21:00 Reassessment: No changes from previously documented assessment. Patient and/or family jb4 updated on plan of care and expected duration. Pain level reassessed. Patient is alert, oriented x 3, equal unlabored respirations, skin warm/dry/pink. 21:54 Reassessment: Report given to ARELI Correa. jb4 22:13 Reassessment: Patient and/or family updated on plan of care and expected duration. Pain jb4 level reassessed. Patient is alert, oriented x 3, equal unlabored respirations, skin warm/dry/pink. Pt remains in bed. Transferred upstairs via stretcher. IV converted to saline lock. Site remains clean, dry and intact. Vital Signs: 17:17 BP 103 / 57; Pulse 85; Resp 18; Temp 97.9; Pulse Ox 98% ; Weight 109.32 kg; Height 5 ll1 ft. 6 in. (167.64 cm); Pain 7/10; 18:24 BP 114 / 62; Pulse 73; Resp 20; Pulse Ox 100% on R/A; jr10 19:00 BP 122 / 83; Pulse 81; Resp 16; Pulse Ox 100% on 3 lpm NC; Pain 10/10; jb4 20:00 BP 123 / 50; Pulse 77; Resp 16; Pulse Ox 100% on 3 lpm NC; jb4 21:00 BP 126 / 57; Pulse 74; Resp 18; Pulse Ox 100% on 3 lpm NC; jb4 21:49 Temp 97.9; jb4 17:17 Body Mass Index 38.90 (109.32 kg, 167.64 cm) ll1 ED Course: 17:12 Patient arrived in ED. mr 17:12 Francisco Javier Shaffer MD is Private Physician. mr 17:19 Triage completed. ll1 17:19 Arm band placed on Patient placed in an exam room, on a stretcher. ll1 17:24 Lin Bass, ARELI is Primary Nurse. jr10 17:26 Jorje Sanchez PA is PHCP. jr8 17:26 Nadir Akins MD is Attending Physician. jr8 18:00 Patient has correct armband on for positive identification. Bed in low position. Call jr10 light in reach. Side rails up X2. Pulse ox on. NIBP on. 18:21 No provider procedures requiring assistance completed. Inserted saline lock: 20 gauge jr10 in right wrist, using aseptic technique. IV is patent, is intact, without good blood return, Flushed. 19:32 Demetri Duarn DO is Hospitalizing Provider. jr8 19:55 Jenna Arauz MD is Hospitalizing Provider. jr8 21:56 Patient admitted, IV remains in place. jb4 Administered Medications: 19:17 Drug: LevaQUIN 500 mg Volume: 100 ml; Route: IVPB; Infused Over: 60 mins; Site: right jb4 wrist; 20:41 Follow up: IV Status: Completed infusion; IV Intake: 100ml rv 19:32 CANCELLED (Physician Discretion): morphine 4 mg IVP once; RASS on ADMIN: Combtv4, Very jr8 Agttd3, Agttd2, Rstlss1, AlertClm0, Drwsy-1, Lt Sdtn-2, Mod Sdtn-3, Dp Sdtn-4, UnArsble-5 19:32 Not Given (Physician Discretion): Zofran (Ondansetron) 4 mg IVP once; over 2 minutes jr8 19:35 Drug: Zofran (Ondansetron) 4 mg Route: IVP; Site: right wrist; jb4 20:00 Follow up: Response: No adverse reaction jb4 19:38 Drug: morphine 4 mg Route: IVP; Site: right wrist; jb4 20:00 Follow up: Response: No adverse reaction; Pain is decreased; RASS: Alert and Calm (0) jb4 20:41 Drug: vancoMYCIN 1 grams Route: IVPB; Infused Over: 2 hrs; Site: right antecubital; rv 21:55 Follow up: Response: No adverse reaction; IV Status: Infusion continued upon admission jb4 Intake: 20:41 IV: 100ml; Total: 100ml. rv Outcome: 19:34 Decision to Hospitalize by Provider. jr8 21:55 Admitted to Med/surg accompanied by tech, via stretcher, room 210, with oxygen, with jb4 chart, Report called to ARELI Correa 21:55 Condition: stable 21:55 Discharge instructions given to patient, Instructed on the need for admit, Demonstrated understanding of instructions. 22:13 Patient left the ED. jb4 Signatures: Yi Bass mr Daniel, Jorje, HANS MAXWELL jr8 Scotty Garcia RN RN jb4 Tony Leal RN RN rv Curt Ely RN RN ll1 Lin Bass RN RN jr10 Corrections: (The following items were deleted from the chart) 19:29 19:17 Reassessment: PT is resting in bed with eyes open. Responds to verbal stimuli. Is jb4 awake and alert x4. respirations are even and unlabored. Maintained 20g to the right wrist. IV flushes with ease, does not draw blood, site is clean dry and intact. No s/s of distress noted. jb4 21:44 19:00 BP 122 / 83; Pulse 81bpm; Resp 16bpm; Pulse Ox 100% RA; Pain 10/10; jb4 jb4
[2020-01-14] MEDS: TRAMADOL HCL 50 MG TAB PO PRN ×2 (10:24→20:30)
--- NOTE | 2020-01-14 10:24 | P.CNS ---
Date of Consult: 01/14/20 For subjective: Patient is a 64-year-old female with history of chronic skin abscesses who presents with worsening pain and drainage coming from bilateral inner thighs. Patient reports first noticing inner thigh abscesses in August of 2019. She was seen in the ED and sent home on oral antibiotics with no improvement. Over the past week the pain and drainage started to worsen therefore she presented to the ED. I was consulted for bilateral thigh abscesses. Past medical/surgical history: CHF, COPD, gout, hyperlipidemia, hypertension, Family history: Father; cancer, mother;cancer Social history: Smokes cigarettes 1PPD, denies alcohol use Allergies codeine Allergy (Verified 01/22/19 20:01) Anaphylaxis Penicillins Allergy (Verified 01/23/19 02:30) Anaphylaxis Sulfa (Sulfonamide Antibiotics) Allergy (Verified 01/22/19 20:01) Anaphylaxis Active Medications Acetaminophen (Tylenol -Extra Strength) 500 mg PO Q4HP PRN PRN Reason: TEMP > 101' F Stop: 02/12/20 22:10 Last Admin: 01/14/20 08:05 Dose: 500 mg Documented by: Sodium Chloride (Ns 1000 Ml Ivbag) 1,000 mls @ 50 mls/hr IV .Q20H MAGY Stop: 02/12/20 22:10 Last Admin: 01/13/20 22:58 Dose: 1,000 mls Documented by: Vancomycin HCl 1.75 gm/ Sodium (Chloride) 500 mls @ 250 mls/hr IVPB Q36H MAGY; P rotocol Stop: 02/14/20 09:01 Levofloxacin/Dextrose (Levaquin 250mg/50 Ml Ivpb) 250 mg in 50 mls @ 50 mls/hr IV Q48H MAGY; Protocol Stop: 02/14/20 17:01 Morphine Sulfate (Morphine Sulfate) 4 mg IV Q6H PRN PRN Reason: Pain scale 5-7 (Moderate) Stop: 02/13/20 05:43 Ondansetron HCl (Zofran) 4 mg IV Q6H PRN PRN Reason: NAUSEA / VOMITING Stop: 02/13/20 08:27 Sodium Chloride (Normal Saline Flush) 10 ml IV BID MAGY Stop: 02/12/20 22:10 Last Admin: 01/14/20 09:00 Dose: Not Given Documented by: Tramadol HCl (Ultram) 50 mg PO Q6H PRN PRN Reason: Pain scale 2-4 (Mild) Stop: 02/13/20 09:29 ROS: CV: Denies chest pain RESP: Denies shortness of breath and chest pain : Denies dysuria GI: Reports decreased appetite, denies nausea and diarrhea Skin: Reports bilateral groin abscesses since August that have worsened Objective: Temp Pulse Resp BP Pulse Ox 97.6 F 73 18 107/51 L 95 01/14/20 08:00 01/14/20 08:00 01/14/20 10:24 01/14/20 08:00 01/14/20 10:24 Labs: Open sodium 140, potassium 4.4, BUN 32, creatinine 2.31, albumin 2.3, WBC is 8.5, hemoglobin 7.1, hematocrit 22.1 ROS: General: Awake, alert, oriented CV: S1,S2 RESP: Good breath sounds ABD: Nontender, bowel sounds present Skin: Bilateral groin abscesses, skin with hardening and serosanguineous drainage Assessment and plan: Bilateral thigh abscesses, recommend to apply betadine daily Patient would benefit from Surgical consult Levaquin day 2 and Vancomycin day 2 Patient will need total of 2 weeks of antibiotics COPD, utilizes 2L nasal cannula at home Protein calorie malnourished Will continue to monitor Thank you for consult Patient discussed with
--- NOTE | 2020-01-14 11:29 | RAD REPORT ---
EXAM DESCRIPTION: RAD - Chest Single View - 01/14/2020 11:03 am CLINICAL HISTORY: COPD COMPARISON: Two view chest February 2019 TECHNIQUE: AP portable chest image was obtained 01/14/2020 11:03 am . FINDINGS: Exam is limited. There is rotation and motion artifact present. Stranding in each lung bas e is not substantially different from comparison when you adjust for the exam limitations. A minimal right base infiltrate cannot be excluded and patient can be monitored with follow-up chest films as w arranted. Heart size is prominent but stable. Enlarged pulmonary arteries are again noted. Upper lobe vasculat ure is mildly prominent. No pneumothorax is present. No large pleural effusions seen. Costophrenic an gle blunting is present as previously seen. No acute bony abnormality seen. No acute aortic findings suspected. IMPRESSION: No peripheral mass or consolidations seen in the right base assessment is limited. Heart, vasculature and lung markings are all mildly prominent. A mild failure or volume overload is n ot excluded.
[2020-01-14 13:20] LABS: Hematocrit 22.5 % (36.0-45.0)
[2020-01-14] MEDS ORDERED: NA CHLORIDE 0.9% 250 ML ONE (15:49)
--- NOTE | 2020-01-14 18:08 | RAD REPORT ---
EXAM DESCRIPTION: US - Renal Ultrasound-Complete - 01/14/2020 5:56 pm CLINICAL HISTORY: ADOLFO Flank pain COMPARISON: No comparisons FINDINGS: Both kidneys are normal in size, shape and echotexture. The right kidney measures 9.0 x 4.4 x 3.4 cm. No hydronephrosis, focal mass or perinephric fluid. The left kidney measures 9.8 x 3.9 x 3.4 cm. No hydronephrosis, focal mass or perinephric fluid. The urinary bladder is incompletely distended without gross abnormality seen. IMPRESSION: Unremarkable renal sonogram.
[2020-01-14] MEDS: NA CHLORIDE 0.9% 1,000 ML IV SCH (18:09)
--- NOTE | 2020-01-14 18:11 | RAD REPORT ---
EXAM DESCRIPTION: US - Extremity Nonvascular Complete - 01/14/2020 5:56 pm CLINICAL HISTORY: bilateral lower extrmity-inner thigh; site of absc COMPARISON: Extrem Venous W Compress Zhen dated 01/23/2019 TECHNIQUE: Real-time sonographic evaluation of the area of interest was performed. FINDINGS: Medial left thigh region there is a subcutaneous fluid collection in the area of interest measuring 3.8 x 2.7 cm. Medial right thigh region there is a subcutaneous oblong fluid collection denzel suring 3.7 x 0.5 cm. These may represent subcutaneous abscesses.
[2020-01-14] MEDS: CLINDAMYCIN INJ 600 MG in NA CHLORIDE 0.9% 50 ML IV SCH (18:18)
--- NOTE | 2020-01-14 19:51 | CON ---
Date of Consultation: 01/14/2020 Reason For Consultation: Elevated BUN and creatinine, fluid management. History Of Present Illness: This is a 64-year-old female with significant past medical history of CO PD, cellulitis, congestive heart failure, diastolic dysfunction, gout, hyperlipidemia. The patient ca me to the hospital complaining of pain on her thigh, increased gradually. The patient on arrival to the hospital, found to have a drop in her hemoglobin and elevation in BUN and creatinine, creatinine up to 2.5. For that reason, we have been consulted. On reviewing the record for the patient ismael lovelace creatinine 1.6, GFR of 38 back in January 21. The patient denied taking any nonsteroidal, no IV con trast. The patient know that she has a chronic kidney disease with GFR of 40-50 at home. The patien t apparently on torsemide. No CONRAD inhibitor or ARB. On this hospitalization there is no contrast. Medical History: Include; 1.Congestive heart failure, diastolic dysfunction. 2.COPD. 3.Gout. 4.Hypertension. 5.Chronic kidney disease, baseline creatinine back in January 2019, 1.6. GFR of 38. Allergies: TO CODEINE, PENICILLIN AND SULFA. Home Medications: Include allopurinol, amlodipine, cetirizine, atorvastatin, cholecalciferol, Torsem francis, Levaquin and prednisone. Family History: Positive for cancer. Social History: Denies smoking, denies drinking, denies drugs abuse. Review of Systems: Head and Neck: No red eye. No ear pain. GI: No nausea, no vomiting. : No polyuria, no dysuria , no hematuria. 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 Respiratory: No shortness of breath. Cardiovascular: No chest pain. Endocrine: No polydipsia. Skin: No rash. Neuro: Has neuropathy. Musculoskeleta l: Has pain on the leg. Physical Examination: Vital Signs: When I saw the patient, blood pressure 115/56, pulse of 73, afebrile. Chest: Clear to auscultation. Heart: S1, S2. Regular. Abdomen: Soft, nontender. Extremities: Trace edema. Neurologic: Alert. Non focal. Laboratory Data: Hemoglobin of 7. Sodium 140, potassium 4.4, bicarb 27, BUN 32, creatinine 2.3, GFR of 26, calcium 8.6, magnesium 1.8. Current Medications: The patient on include; 1.Levaquin 250. 2.Vancomycin. 3.Tylenol. 4.Normal saline. 5.Tramadol. Assessment And Plan: 1.Acute kidney injury secondary to prerenal, secondary to over diuresis, poor intake with the presen ce of anemia. I am going to send for serum protein electrophoresis, protein and creatinine and we wi ll send for the workup including renal ultrasound. 2.With the present anemia, send for serum protein electrophoresis. 3.Hypertension. With the presence of acute kidney injury hold Torsemide. Continue IV hydration. 4.Anemia, possible secondary to gastrointestinal loss. I am going to send for iron study and for se rum protein electrophoresis. 5.Cellulitis. Continue current antibiotic. We will follow up the culture. 6.Congestive heart failure, diastolic dysfunction. Chest x-ray. Has congestion. We will continue gentle hydration. Hold diuresis. GARY Voice ID: [id number] Report ID: [id number]
[2020-01-14] MEDS: ONDANSETRON 4 MG/2 ML VIAL IV PRN (20:30)
[2020-01-14 22:04] LABS: Hematocrit 26.3 % (36.0-45.0)
[2020-01-14] MEDS ORDERED: HEPARIN 5000 UNIT/ML 1 ML VIAL SQ SCH (23:00)
[2020-01-15] MEDS: CLINDAMYCIN INJ 600 MG in NA CHLORIDE 0.9% 50 ML IV SCH ×3 (01:14→17:00)
[2020-01-15 05:55] LABS: RBC Red Blood Cell Count 3.14 M/uL (3.86-4.86)
[2020-01-15 06:32] LABS: Albumin 2.3 g/dL (3.4-5.0); Ferritin 357.9 ng/mL (8-388); Folic Acid, (Folate) 3.9 ng/mL (3.1-17.5); Phosphorus 3.9 mg/dL (2.5-4.9); Potassium 4.8 mmol/L (3.5-5.1); Thyroid Stimulating Hormone 1.17 uIU/mL (0.360-3.740); Uric Acid 8.3 mg/dL (2.6-6.0)
[2020-01-15 08:53] LABS: Rheumatoid Factor NEG (NEG)
[2020-01-15] MEDS: VANCOMYCIN 1.75 GM in NA CHLORIDE 0.9% 500 ML IVPB SCH (10:02)
[2020-01-15 12:40] LABS: Urine Appearance CLOUDY; Urine Bilirubin NEGATIVE (NEG); Urine Blood 2+ (NEG); Urine Color YELLOW; Urine Glucose NEGATIVE (NEG); Urine Protein TRACE (NEG); Urine Specific Gravity 1.015 (1.005-1.030); Urine Urobilinogen 0.2 mg/dL (0.2-1.0)
[2020-01-15 13:09] LABS: Urine Microscopic Reflex ORDER UMIC
[2020-01-15 13:16] LABS: Urine Amorphous Sediment 1+ /HPF (NONE SEEN); Urine Bacteria 20-50 /HPF (<20); Urine Culture Reflex Order REFLEXED; Urine Mucus 1+ /HPF (NONE SEEN)
[2020-01-15 13:17] LABS: Urine Coarse Granular Casts 0-5 /LPF (NONE SEEN); Urine Yeast PRESENT (NONE SEEN)
[2020-01-15] MEDS: TRAMADOL HCL 50 MG TAB PO PRN (14:06)
--- NOTE | 2020-01-15 14:48 | P.PN ---
Date of Service: 01/15/20 For subjective: Patient is a 64-year-old female with history of chronic skin abscesses who presents with worsening pain and drainage coming from bilateral inner thighs. Patient reports first noticing inner thigh abscesses in August of 2019. She was seen in the ED and sent home on oral antibiotics with no improvement. Over the past week the pain and drainage started to worsen therefore she presented to the ED. I was consulted for bilateral thigh abscesses. Patient reports pain is improving. Patient refused to have surgery consult. Prefers to treat locally. Objective: Temp Pulse Resp BP Pulse Ox 97.6 F 73 18 107/51 L 95 01/14/20 08:00 01/14/20 08:00 01/14/20 10:24 01/14/20 08:00 01/14/20 10:24 Labs: Sodium 139, potassium 4.8, BUN 26, creatinine 1.97, albumin 2.3, WBC is 8.5, hemoglobin 8.4, hematocrit 26.3 Chest xray 01/13: EXAM DESCRIPTION: RAD - Chest Single View - 01/14/2020 11:03 am CLINICAL HISTORY: COPD COMPARISON: Two view chest February 2019 TECHNIQUE: AP portable chest image was obtained 01/14/2020 11:03 am . FINDINGS: Exam is limited. There is rotation and motion artifact present. Stranding in each lung base is not substantially different from comparison when you adjust for the exam limitations. A minimal right base infiltrate cannot be excluded and patient can be monitored with follow-up chest films as warranted. Heart size is prominent but stable. Enlarged pulmonary arteries are again noted. Upper lobe vasculature is mildly prominent. No pneumothorax is present. No large pleural effusions seen. Costophrenic angle blunting is present as previously seen. No acute bony abnormality seen. No acute aortic findings suspected. IMPRESSION: No peripheral mass or consolidations seen in the right base assessment is limited. Heart, vasculature and lung markings are all mildly prominent. A mild failure or volume overload is not excluded. ROS: General: Awake, alert, oriented CV: S1,S2 RESP: Good breath sounds ABD: Nontender, bowel sounds present Skin: Bilateral groin abscesses, skin with hardening and serosanguineous d rainage Assessment and plan: Bilateral thigh abscesses, recommend to apply betadine daily Educated the patient to bathe from the neck down with Hibiclens every two weeks Levaquin day 3 and Vancomycin day 3 Upon discharge, can discontinue Vancomycin and continue Levaquin PO for total of 7 days COPD, utilizes 2L nasal cannula at home Protein calorie malnourished Will continue to monitor Patient discussed with
[2020-01-15] MEDS: Levofloxacin 250mg IV 250 MG/50 ML BAG IV SCH (17:00)
--- NOTE | 2020-01-15 17:22 | PN ---
Date of Progress Note: 01/15/2020 Subjective: The patient was seen and examined at bedside. She is doing better. She is getting IV a ntibiotics for her wounds on her thighs and we are awaiting Infectious Disease consult also. She den ies any shortness of breath. Denies any overnight events. Objective: Vital Signs: Have been reviewed and are seems to be stable. She is saturating 88% on 3 L of nasal cannula oxygen. She does have chronic COPD. General: She appears in no acute distress. HEENT: Atraumatic head. Lungs: Auscultation of lungs revealed diminished breath sounds bilaterally. Abdomen: Soft and nontender. Extremities: Bilateral upper thighs were covered in dressing and lower legs had no evidence of any e brett or anasarca. Laboratory Data: At this time are showing sodium of 139, potassium of 4.8, chloride of 106, BUN of 2 6, and creatinine of 1.97. Her TSAT was 16.4. CBC showing hemoglobin of 8.4, hematocrit of 26.3, WB C count of 8.5, and platelet count of 496 was noted. Current Medications: Include Levaquin 250 mg every 48 hours, clindamycin 600 mg every 8 hours and va ncomycin every 36 hours. Impression: 1.Acute on chronic renal insufficiency secondary to possibly from ATN, currently with improving milena l function. Renal ultrasound was unremarkable. 2.Bilateral thigh abscesses. The patient is getting local wound care and antibiotics with clindamyc in, Levaquin, and vancomycin. Dr. Del Toro is following with the patient closely. 3.Chronic congestive heart failure seems to be compensated at this time. Diuretics are currently on hold. 4.Chronic obstructive pulmonary disease, currently stable. Continue nebulizer treatments and pulmon jhoan toilet. 5.Debility and weakness. 6.Anemia. The patient has significant amount of anemia and seems to have received some blood transf usion at this time. According to her iron studies, the patient does seem to be having some mild iron deficiency, so she probably does benefit from getting some Venofer to improve her iron stores and mo nitor her hemoglobin closely. We will go ahead and order Venofer and monitor her anemia levels. Annita nwhile, we will continue all other medications. We will discontinue IV fluids as she can get fluid o verloaded pretty easily and hold off on diuretics also at this time and monitor her very closely at t his time. Continue all other medications and plan of care discussed with Dr. Arauz. VV/MICHELEL Voice ID: [id number] Report ID: [id number]
[2020-01-15] MEDS: CHLORHEXIDINE GLUCO 4% 120 ML TOP SCH (21:00)
[2020-01-16] MEDS: TRAMADOL HCL 50 MG TAB PO PRN ×2 (03:08→21:00)
[2020-01-16] MEDS: ONDANSETRON 4 MG/2 ML VIAL IV PRN ×2 (04:11→21:00)
[2020-01-16] MEDS: CLINDAMYCIN INJ 600 MG in NA CHLORIDE 0.9% 50 ML IV SCH ×3 (04:11→16:50)
[2020-01-16 04:53] LABS: Albumin 2.3 g/dL (3.4-5.0); Phosphorus 3.5 mg/dL (2.5-4.9); Potassium 4.6 mmol/L (3.5-5.1)
[2020-01-16] MEDS: CHLORHEXIDINE GLUCO 4% 120 ML TOP SCH ×2 (09:00→21:00)
--- NOTE | 2020-01-16 09:32 | P.PN ---
Date of Service: 01/16/20 For subjective: Patient is a 64-year-old female with history of chronic skin abscesses who presents with worsening pain and drainage coming from bilateral inner thighs. Patient reports first noticing inner thigh abscesses in August of 2019. She was seen in the ED and sent home on oral antibiotics with no improvement. Over the past week the pain and drainage started to worsen therefore she presented to the ED. I was consulted for bilateral thigh abscesses. Patient reports pain is improving. Patient refused to have surgery consult. Prefers to treat locally. No new changes Objective: Temp Pulse Resp BP Pulse Ox 97.4 F 79 18 120/58 L 91 01/16/20 04:00 01/16/20 04:00 01/16/20 04:08 01/16/20 04:00 01/16/20 04:08 Labs: Sodium 138, potassium 4.6, BUN 22, creatinine 1.73, albumin 2.3, WBC is 8.5, hemoglobin 8.4, hematocrit 26.3 Chest xray 01/13: EXAM DESCRIPTION: RAD - Chest Single View - 01/14/2020 11:03 am CLINICAL HISTORY: COPD COMPARISON: Two view chest February 2019 TECHNIQUE: AP portable chest image was obtained 01/14/2020 11:03 am . FINDINGS: Exam is limited. There is rotation and motion artifact present. Stranding in each lung base is not substantially different from comparison when you adjust for the exam limitations. A minimal right base infiltrate cannot be excluded and patient can be monitored with follow-up chest films as warranted. Heart size is prominent but stable. Enlarged pulmonary arteries are again noted. Upper lobe vasculature is mildly prominent. No pneumothorax is present. No large pleural effusions seen. Costophrenic angle blunting is present as previously seen. No acute bony abnormality seen. No acute aortic findings suspected. IMPRESSION: No peripheral mass or consolidations seen in the right base assessment is limited. Heart, vasculature and lung markings are all mildly prominent. A mild failure or volume overload is not excluded. ROS: General: Awake, alert, oriented CV: S1,S2 RESP: Good breath sounds ABD: Nontender, bowel sounds present Skin: Bilateral groin abscesses, skin with hardening and serosanguineous drainage. left thigh abscess with thick purulent drainage Assessment and plan: Bilateral thigh abscesses, recommend to apply betadine daily Educated the patient to bathe from the neck down with Hibiclens once every two weeks Levaquin day 4 and Vancomycin day 4 Upon discharge, can discontinue Vancomycin and continue Levaquin PO for total of 7 days COPD, utilizes 2L nasal cannula at home Protein calorie malnourished Will continue to monitor Patient discussed with
--- NOTE | 2020-01-16 09:52 | P.PN ---
Subjective Date of Service: 01/14/20 Patient is refusing to have I and D of the abscess. Patient has history of hidradenitis. She started having issues quite a while ago. At this time will continue with IV antibiotics. She has significant abscess in the area. It is draining on its own. Hopefully we can strength abscess over the next few days or is not safe for her to go home. Infectious Disease Consulted as well. Review of Systems 10-point ROS is otherwise unremarkable Physical Examination - Vital Signs Temperature: 96.6 F Blood Pressure: 140/51 Pulse: 79 Respirations: 20 Pulse Ox (%): 92 - Physical Exam General: Alert, In no apparent distress, Oriented x3 Respiratory: Clear to auscultation bilaterally, Normal air movement Cardiovascular: Regular rate/rhythm, Normal S1 S2, No murmurs Gastrointestinal: Normal bowel sounds, Soft and benign, Non-distended, No tenderness Musculoskeletal: No clubbing, No swelling, No tenderness Integumentary: Erythema, Warmth, Other (inner thighs; boil) Neurological: Normal tone, Sensation intact, Cranial nerves 3-12 intact - Studies Microbiology Data (last 24 hrs): 01/13/20 18:00 Wound - Right Lower Leg Gram Stain - Final Medications List Reviewed: Yes Assessment & Plan - Problems (Diagnosis) (1) Hydradenitis Current Visit: Yes Status: Acute (2) Abscess of lower extremity Current Visit: Yes Status: Acute (3) DM2 (diabetes mellitus, type 2) Current Visit: Yes Status: Acute (4) HTN (hypertension) Current Visit: Yes Status: Acute (5) CHF (congestive heart failure) Current Visit: Yes Status: Acute (6) COPD (chronic obstructive pulmonary disease) Current Visit: Yes Status: Acute - Plan 1. Continue with IV antibiotic 2. Continue with local wound care 3. Infectious disease consultation; patient refusing surgery so will opt to do supportive care 4. Gentle IV hydration 5. Monitor CBC 6. Strict blood sugar monitoring 7. Pain control 8. GI and DVT prophylaxis Discharge Plan: Home Plan to discharge in: Greater than 2 days - Advance Directives Does patient have a Living Will: No Does patient have a Durable POA for Healthcare: No - Code Status/Comfort Care Code Status: Full Code Critical Care: No Time Spent Managing PTS Care (In Minutes): 30
--- NOTE | 2020-01-16 10:01 | P.PN ---
Subjective Date of Service: 01/15/20 Patient's IV came out. Still has significant amount of swelling in the inner thighs. Patient continue with some drainage. Infectious Disease recommending Hibiclens wash to the thighs. Mid line in place and continue IV antibiotics for 48 more hr. Review of Systems 10-point ROS is otherwise unremarkable Physical Examination - Vital Signs Temperature: 96.6 F Blood Pressure: 140/51 Pulse: 79 Respirations: 20 Pulse Ox (%): 92 - Physical Exam General: Alert, In no apparent distress, Oriented x3 Neck: Supple, JVD not distended Respiratory: Clear to auscultation bilaterally, Normal air movement Cardiovascular: Regular rate/rhythm, Normal S1 S2 Gastrointestinal: Normal bowel sounds, Soft and benign, Non-distended, No tenderness Musculoskeletal: Erythema, Tenderness Integumentary: Skin lesion, Tenderness/swelling, Erythema, Other (Abscess to the inner thighs bilaterally) - Studies Microbiology Data (last 24 hrs): 01/13/20 18:00 Wound - Right Lower Leg Gram Stain - Final Medications List Reviewed: Yes Assessment & Plan - Problems (Diagnosis) (1) Hydradenitis Current Visit: Yes Status: Acute (2) Abscess of lower extremity Current Visit: Yes Status: Acute (3) DM2 (diabetes mellitus, type 2) Current Visit: Yes Status: Acute (4) HTN (hypertension) Current Visit: Yes Status: Acute (5) CHF (congestive heart failure) Current Visit: Yes Status: Acute (6) COPD (chronic obstructive pulmonary disease) Current Visit: Yes Status: Acute - Plan Continue with plan of care as mentioned below; mid line in place 1. Continue with IV antibiotic 2. Continue with local wound care 3. Infectious disease consultation; patient refusing surgery so will opt to do supportive care 4. Gentle IV hydration 5. Monitor CBC 6. Strict blood sugar monitoring 7. Pain control 8. GI and DVT prophylaxis Discharge Plan: Home Plan to discharge in: Greater than 2 days - Advance Directives Does patient have a Living Will: No Does patient have a Durable POA for Healthcare: No - Code Status/Comfort Care Code Status: Full Code Critical Care: No Time Spent Managing PTS Care (In Minutes): 30
--- NOTE | 2020-01-16 10:06 | P.PN ---
Subjective Date of Service: 01/16/20 Patient is doing well. Abscess looks to be a little smaller. Possibly discharge tomorrow if she continues to improve. Will arrange for home health at discharge for wound care. Review of Systems 10-point ROS is otherwise unremarkable Physical Examination - Vital Signs Temperature: 96.6 F Blood Pressure: 140/51 Pulse: 79 Respirations: 20 Pulse Ox (%): 92 - Physical Exam General: Alert, In no apparent distress, Oriented x3 Respiratory: Clear to auscultation bilaterally, Normal air movement Cardiovascular: Regular rate/rhythm, Normal S1 S2, No murmurs Gastrointestinal: Normal bowel sounds, Soft and benign, Non-distended, No tenderness Musculoskeletal: No clubbing, No swelling, No tenderness Neurological: Sensation intact, Cranial nerves 3-12 intact - Studies Microbiology Data (last 24 hrs): 01/13/20 18:00 Wound - Right Lower Leg Gram Stain - Final Medications List Reviewed: Yes Assessment & Plan - Problems (Diagnosis) (1) Hydradenitis Status: Acute (2) Abscess of lower extremity Status: Acute (3) DM2 (diabetes mellitus, type 2) Status: Acute (4) HTN (hypertension) Status: Acute (5) CHF (congestive heart failure) Status: Acute (6) COPD (chronic obstructive pulmonary disease) Status: Acute - Plan Continue with plan of care as mentioned below; mid line in place 1. Continue with IV antibiotic; probably just need to continue for 24-48 more hr and then will get case management Consult for outpatient wound care/home health 2. Hibiclens wash to the inner thighs; Arrange for home health to do Hibiclens 3. Infectious disease consultation; patient refusing surgery so will opt to do supportive care; appreciate their recommendation 4. Gentle IV hydration 5. Monitor CBC 6. Strict blood sugar monitoring 7. Pain control 8. GI and DVT prophylaxis Discharge Plan: Home Plan to discharge in: Greater than 2 days - Advance Directives Does patient have a Living Will: No Does patient have a Durable POA for Healthcare: No - Code Status/Comfort Care Code Status: Full Code Critical Care: No Time Spent Managing PTS Care (In Minutes): 30
--- NOTE | 2020-01-16 12:11 | RAD REPORT ---
EXAM DESCRIPTION: RAD - Chest Single View - 01/16/2020 3:18 am CLINICAL HISTORY: 64 years Female, picc line insertion COMPARISON: None. FINDINGS: A left upper extremity PICC line is present with tip in the upper SVC. There is a small amount of opacity in the right lower lung zone. No pneumothorax. No significant pleu ral effusion. There are few streaky opacities in both lung bases suggestive of atelectasis. There is mild interstitial prominence. Heart appears mildly enlarged. Aortic atherosclerosis is present. Osseous structures are unremarkable. IMPRESSION: 1. Left upper extremity PICC line tip in the SVC. 2. Mild interstitial prominence which may reflect mild pulmonary edema. 3. Small right basilar pulmonary opacity may represent atelectasis or infiltrate. Electronically signed by: Gabino Hansen MD 01/16/2020 3:38 AM CDT Due to temporary technical issues with the PACS/Fluency reporting system, reports are being signed by the in house radiologist without review as a courtesy to ensure prompt reporting. The interpreting r adiologist is fully responsible for the content of the report..
--- NOTE | 2020-01-16 17:51 | P.PN ---
Date of Service: 01/16/20 Vital Signs Temp Pulse Resp BP Pulse Ox 98.6 F 83 20 115/55 L 93 01/16/20 16:00 01/16/20 16:00 01/16/20 16:00 01/16/20 16:00 01/16/20 16:00 Medications Acetaminophen (Tylenol -Extra Strength) 500 mg PO Q4HP PRN PRN Reason: TEMP > 101' F Stop: 02/12/20 22:10 Last Admin: 01/14/20 08:05 Dose: 500 mg Documented by: Chlorhexidine Gluconate (Betasept) 1 appl TOP BID [facility] Stop: 02/14/20 21:01 Last Admin: 01/16/20 09:00 Dose: 1 appl Documented by: Vancomycin HCl 1.75 gm/ Sodium (Chloride) 500 mls @ 250 mls/hr IVPB Q36H [facility]; Protocol Stop: 02/14/20 09:01 Last Admin: 01/15/20 10:02 Dose: 500 mls Documented by: Levofloxacin/Dextrose (Levaquin 250mg/50 Ml Ivpb) 250 mg in 50 mls @ 50 mls/hr IV Q48H [facility]; Protocol Stop: 02/14/20 17:01 Last Admin: 01/15/20 17:00 Dose: Not Given Documented by: Clindamycin Phosphate 600 mg/ (Sodium Chloride) 54 mls @ 100 mls/hr IV Q8HR [facility]; Protocol Stop: 02/13/20 17:01 Last Admin: 01/16/20 16:50 Dose: 54 mls Documented by: Morphine Sulfate (Morphine Sulfate) 4 mg IV Q6H PRN PRN Reason: Pain scale 5-7 (Moderate) Stop: 02/13/20 05:43 Ondansetron HCl (Zofran) 4 mg IV Q6H PRN PRN Reason: NAUSEA / VOMITING Stop: 02/13/20 08:27 Last Admin: 01/16/20 04:11 Dose: 4 mg Documented by: Sodium Chloride (Normal Saline Flush) 10 ml IV BID [facility] Stop: 02/12/20 22:10 Last Admin: 01/16/20 09:20 Dose: 10 ml Documented by: Tramadol HCl (Ultram) 50 mg PO Q6H PRN PRN Reason: Pain scale 2-4 (Mild) Stop: 02/13/20 09:29 Last Admin: 01/16/20 03:08 Dose: 50 mg Documented by: Microbiology Results 01/13/20 18:00 Wound - Right Lower Leg Gram Stain - Final 01/13/20 18:00 Wound - Right Lower Leg Culture & Sensitivity - Preliminary 01/13/20 18:59 Blood - Blood Aerobic Blood Culture - Preliminary No growth in 24 hours. 01/13/20 18:59 Blood - Blood Anaerobic Blood Culture - Final Assessment/ Plan: Nephrology CPS stable without CP or SOB. Feeling better. Weakness. No acute events overnight. Vitals, medications, blood work and imaging reviewed in the chart. NAD. MMM. Neck supple. CTA. RRR. Soft Abd. No C/C. LE Edema trace. BL medial thigh abscess. AAO. Normal Speech. A/ ADOLFO, improving CKD III HTN with CKD/ CHF. Diastolic CHF, chronic. DM II with CKD. Moderate malnutrition Anemia in chronic illness Iron deficiency Cellulitis/ Thigh Abscess P/ Continue current POC and Medications. Continue abx. Wound care as ordered. Low sodium diet. AM labs. Daily weight. No NSAIDs.
[2020-01-16] MEDS: VANCOMYCIN 1.75 GM in NA CHLORIDE 0.9% 500 ML IVPB SCH (20:59)
[2020-01-17] MEDS: CLINDAMYCIN INJ 600 MG in NA CHLORIDE 0.9% 50 ML IV SCH ×3 (01:17→16:05)
[2020-01-17 05:01] LABS: Albumin 2.2 g/dL (3.4-5.0); Potassium 4.9 mmol/L (3.5-5.1)
--- NOTE | 2020-01-17 08:17 | P.PN ---
Date of Service: 01/17/20 For subjective: Patient is a 64-year-old female with history of chronic skin abscesses who presents with worsening pain and drainage coming from bilateral inner thighs. Patient reports first noticing inner thigh abscesses in August of 2019. She was seen in the ED and sent home on oral antibiotics with no improvement. Over the past week the pain and drainage started to worsen therefore she presented to the ED. I was consulted for bilateral thigh abscesses. Patient reports pain is improving. Patient refused to have surgery consult. Prefers to treat locally. No new changes Objective: Temp Pulse Resp BP Pulse Ox 97.8 F 78 18 110/53 L 94 01/17/20 04:00 01/17/20 04:00 01/17/20 04:00 01/17/20 04:00 01/17/20 04:00 Labs: Sodium 140, potassium 4.9, BUN 20, creatinine 1.71, albumin 2.3, WBC is 8.5, hemoglobin 8.4, hematocrit 26.3 Chest xray 01/13: EXAM DESCRIPTION: RAD - Chest Single View - 01/14/2020 11:03 am CLINICAL HISTORY: COPD COMPARISON: Two view chest February 2019 TECHNIQUE: AP portable chest image was obtained 01/14/2020 11:03 am . FINDINGS: Exam is limited. There is rotation and motion artifact present. Stranding in each lung base is not substantially different from comparison when you adjust for the exam limitations. A minimal right base infiltrate cannot be excluded and patient can be monitored with follow-up chest films as warranted. Heart size is prominent but stable. Enlarged pulmonary arteries are again noted. Upper lobe vasculature is mildly prominent. No pneumothorax is present. No large pleural effusions seen. Costophrenic angle blunting is present as previously seen. No acute bony abnormality seen. No acute aortic findings suspected. IMPRESSION: No peripheral mass or consolidations seen in the right base assessment is limited. Heart, vasculature and lung markings are all mildly prominent. A mild failure or volume overload is not excluded. ROS: General: Awake, alert, oriented CV: S1,S2 RESP: Good breath sounds ABD: Nontender, bowel sounds present Skin: Bilateral groin abscesses, skin with hardening and serosanguineous drainage. left thigh abscess with thick purulent drainage Assessment and plan: Bilateral thigh abscesses, recommend to apply betadine daily Educated the patient to bathe from the neck down with Hibiclens once every two weeks Levaquin day 5 and Vancomycin day 5 Upon discharge, can discontinue Vancomycin and continue Levaquin PO to complete total of 7 days COPD, utilizes 2L nasal cannula at home Protein calorie malnourished Will continue to monitor Patient discussed with
[2020-01-17] MEDS: CHLORHEXIDINE GLUCO 4% 120 ML TOP SCH (09:00)
[2020-01-17 09:04] VITALS: O2SAT 97
[2020-01-17 12:28] LABS: HIV AG/AB 4TH GEN Non-reactive (Non-reactive)
[2020-01-17] MEDS: Levofloxacin 250mg IV 250 MG/50 ML BAG IV SCH (16:05)
--- NOTE | 2020-01-17 18:30 | P.PN ---
Date of Service: 01/17/20 Vital Signs Temp Pulse Resp BP Pulse Ox 97.1 F 76 19 104/50 L 93 01/17/20 16:00 01/17/20 16:00 01/17/20 16:00 01/17/20 16:00 01/17/20 16:00 Medications Acetaminophen (Tylenol -Extra Strength) 500 mg PO Q4HP PRN PRN Reason: TEMP > 101' F Stop: 02/12/20 22:10 Last Admin: 01/14/20 08:05 Dose: 500 mg Documented by: Chlorhexidine Gluconate (Betasept) 1 appl TOP BID [facility] Stop: 02/14/20 21:01 Last Admin: 01/17/20 09:00 Dose: 1 appl Documented by: Vancomycin HCl 1.75 gm/ Sodium (Chloride) 500 mls @ 250 mls/hr IVPB Q36H [facility]; Protocol Stop: 02/14/20 09:01 Last Admin: 01/16/20 20:59 Dose: 500 mls Documented by: Levofloxacin/Dextrose (Levaquin 250mg/50 Ml Ivpb) 250 mg in 50 mls @ 50 mls/hr IV Q48H [facility]; Protocol Stop: 02/14/20 17:01 Last Admin: 01/17/20 16:05 Dose: 50 mls Documented by: Clindamycin Phosphate 600 mg/ (Sodium Chloride) 54 mls @ 100 mls/hr IV Q8HR [facility]; Protocol Stop: 02/13/20 17:01 Last Admin: 01/17/20 16:05 Dose: 54 mls Documented by: Morphine Sulfate (Morphine Sulfate) 4 mg IV Q6H PRN PRN Reason: Pain scale 5-7 (Moderate) Stop: 02/13/20 05:43 Ondansetron HCl (Zofran) 4 mg IV Q6H PRN PRN Reason: NAUSEA / VOMITING Stop: 02/13/20 08:27 Last Admin: 01/16/20 21:00 Dose: 4 mg Documented by: Sodium Chloride (Normal Saline Flush) 10 ml IV BID [facility] Stop: 02/12/20 22:10 Last Admin: 01/17/20 09:07 Dose: 10 ml Documented by: Tramadol HCl (Ultram) 50 mg PO Q6H PRN PRN Reason: Pain scale 2-4 (Mild) Stop: 02/13/20 09:29 Last Admin: 01/16/20 21:00 Dose: 50 mg Documented by: Microbiology Results 01/13/20 18:00 Wound - Right Lower Leg Gram Stain - Final 01/13/20 18:00 Wound - Right Lower Leg Culture & Sensitivity - Final Klebsiella Pneumoniae 01/13/20 18:59 Blood - Blood Aerobic Blood Culture - Preliminary No growth in 24 hours. 01/13/20 18:59 Blood - Blood Anaerobic Blood Culture - Final Assessment/ Plan: Nephrology CPS stable without CP or SOB. Feeling better. Weakness. No acute events overnight. Vitals, medications, blood work and imaging reviewed in the chart. NAD. MMM. Neck supple. CTA. RRR. Soft Abd. No C/C. LE Edema trace. BL medial thigh abscess. AAO. Normal Speech. A/ ADOLFO, improving CKD III HTN with CKD/ CHF. Diastolic CHF, chronic. DM II with CKD. Moderate malnutrition Anemia in chronic illness Iron deficiency Cellulitis/ Thigh Abscess P/ Continue current POC and Medications. Continue abx. Wound care as ordered. Low sodium diet. AM labs. Daily weight. No NSAIDs.
[2020-01-18 13:19] LABS: Vitamin D 1,25-Dihydroxy Total 34 pg/mL (18-72); Vitamin D,1,25-OH2, D2 <8 pg/mL
[2020-01-18 19:28] LABS: Hepatitis C Virus RNA (PCR)log <1.18 log IU/mL
[2020-01-18 21:57] LABS: HBsAG Nonreactive (Nonreactive)
[2020-01-19 06:22] LABS: Albumin, (SPE) 2.4 g/dL (3.8-4.8); Alpha-1-Globulins 0.6 g/dL (0.2-0.3); INTERPRETATION REPORT
[2020-01-21 14:08] VITALS: BP 140/51; TEMP 96.6
--- NOTE | 2020-01-21 14:13 | P.DS ---
Discharge Date: 01/17/20 Primary Care Provider: Francisco Javier Shaffer Disposition: ROUTINE DISCHARGE Discharge Condition: GOOD Reason for Admission: Cellulitis/acute on chronic renal failure - Problems (1) Hydradenitis Status: Acute (2) Abscess of lower extremity Status: Acute (3) DM2 (diabetes mellitus, type 2) Status: Acute (4) HTN (hypertension) Status: Acute (5) CHF (congestive heart failure) Status: Acute (6) COPD (chronic obstructive pulmonary disease) Status: Acute Brief History of Present Illness: She was admitted with abscess to the bilateral inner thighs. She has hidradenitis. She will be admitted for further treatment. Hospital Course: Patient has done well from a hospital stay. Patient refused surgery. We will do a Hibiclens wash at discharge. Patient will get home health arranged as well. Vital Signs/Physical Exam: Temp Pulse Resp BP Pulse Ox 96.6 F L 79 20 140/51 L 92 01/21/20 14:08 01/21/20 14:08 01/21/20 14:08 01/21/20 14:08 01/21/20 14:08 General: Alert, In no apparent distress, Oriented x3 Laboratory Data at Discharge: WBC 8.5 K/uL (4.3-10.9) 01/14/20 04:56 Hgb 8.4 g/dL (12.0-15.0) L 01/14/20 21:50 Hct 26.3 % (36.0-45.0) L D 01/14/20 21:50 Plt Count 496 K/uL (152-406) H 01/14/20 04:56 Sodium 140 mmol/L (136-145) 01/17/20 04:17 Potassium 4.9 mmol/L (3.5-5.1) 01/17/20 04:17 BUN 20 mg/dL (7-18) H 01/17/20 04:17 Creatinine 1.71 mg/dL (0.55-1.3) H 01/17/20 04:17 Glucose 83 mg/dL (74-106) 01/17/20 04:17 Uric Acid 8.3 mg/dL (2.6-6.0) H 01/15/20 05:25 Phosphorus 4.0 mg/dL (2.5-4.9) 01/17/20 04:17 Magnesium 2.0 mg/dL (1.8-2.4) 01/15/20 05:25 Total Bilirubin 0.2 mg/dL (0.2-1.0) 01/14/20 04:56 AST 11 U/L (15-37) L 01/14/20 04:56 ALT 10 U/L (12-78) L 01/14/20 04:56 Alkaline Phosphatase 58 U/L (45-117) 01/14/20 04:56 Home Medications: Allopurinol 1 tab PO DAILY 01/13/20 Aspirin [Olimpia Chewable Aspirin] 81 mg PO DAILY 01/13/20 Cetirizine HCl 1 tab PO DAILY 01/13/20 Clopidogrel Bisulfate [Plavix*] 75 mg PO DAILY 01/13/20 Fluticasone Propion/Salmeterol [Fluticasone-Salmeterol 250-50] 2 spray IH BID 01/13/20 Montelukast [Singulair*] 1 tab PO DAILY 01/13/20 Nebivolol HCl [Bystolic*] 1 tab PO DAILY 01/13/20 Torsemide 10 mg PO DAILY 01/13/20 Tramadol HCl [Ultram] 1 tab PO Q6H PRN 01/13/20 Vit D3 2000 Unit 2,000 unit PO DAILY 01/13/20 Chlorhexidine 4% [Betasept*] 1 appl TOP BID #10 btl 01/17/20 Rifampin [Rifadin] 300 mg PO BID #14 capsule 01/17/20 levoFLOXacin [Levaquin] 500 mg PO DAILY #7 tab 01/17/20 New Medications: Chlorhexidine 4% [Betasept*] 1 appl TOP BID #10 btl levoFLOXacin [Levaquin] 500 mg PO DAILY #7 tab Rifampin [Rifadin] 300 mg PO BID #14 capsule Patient Discharge Instructions: OK TO DC IV AND DC HOME. FOLLOW-UP WITH PRIMARY CARE PROVIDER IN 1-2 WEEKS. FOLLOW-UP WITH wound healing clinic at discharge. Continue Hibiclens wash twice a day at home. RETURN TO THE ER IF symptoms worsen. CALL or TEXT DR. BARKLEY AT [phone] IF ANY QUESTIONS REGARDING HOSPITAL STAY. PLEASE CALL THE FLOOR AT [phone] IF ANY MEDICATION OR NURS ING QUESTIONS. Diet: ADA (Low sodium diet) Activity: Fall precautions Time spent managing pt's care (in minutes): 30
== END 2020-01-17 18:50 | disposition home or self-care (01) | DRG 603 ==
LOC: ER 17:09 → ERHOLD 20:53 → 2ND 21:55
PROVIDERS: ADMIT Hospitalist; ATTEND Hospitalist
PROC: 30233N1 Transfusion of Nonautologous Red Blood Cells into Peripheral Vein, Percutaneous Approach (ICD-10-PCS; 2020-01-14)
PROC: 02HV33Z Insertion of Infusion Device into Superior Vena Cava, Percutaneous Approach (ICD-10-PCS; principal; 2020-01-16)
DX: L02.416 Cutaneous abscess of left lower limb (principal); I50.32 Chronic diastolic (congestive) heart failure; I13.0 Hypertensive heart and chronic kidney disease with heart failure and stage 1 through stage 4 chronic kidney disease, or unspecified chronic kidney disease; N17.9 Acute kidney failure, unspecified; J96.11 Chronic respiratory failure with hypoxia; E44.0 Moderate protein-calorie malnutrition; L03.119 Cellulitis of unspecified part of limb; L02.415 Cutaneous abscess of right lower limb; L73.2 Hidradenitis suppurativa; D50.9 Iron deficiency anemia, unspecified; J44.9 Chronic obstructive pulmonary disease, unspecified; D63.8 Anemia in other chronic diseases classified elsewhere; E11.22 Type 2 diabetes mellitus with diabetic chronic kidney disease; N18.3 Chronic kidney disease, stage 3 (moderate); E78.5 Hyperlipidemia, unspecified; R53.81 Other malaise; Z99.81 Dependence on supplemental oxygen; Z88.1 Allergy status to other antibiotic agents; Z88.5 Allergy status to narcotic agent; Z88.0 Allergy status to penicillin; Z79.82 Long term (current) use of aspirin; Z79.02 Long term (current) use of antithrombotics/antiplatelets; Z79.52 Long term (current) use of systemic steroids; Z79.899 Other long term (current) drug therapy; Z68.36 Body mass index [BMI] 36.0-36.9, adult; Z53.29 Procedure and treatment not carried out because of patient's decision for other reasons; Z20.828 Contact with and (suspected) exposure to other viral communicable diseases
CPT/HCPCS: 36415; 36430; 36569; 71045; 76770; 76881; 80048; 80053; 80069; 80076; 80202; 81003; 81015; 82550; 82607; 82652; 82728; 82746; 83520; 83540; 83605; 83735; 83970; 84145; 84165; 84443; 84466; 84550; 85014; 85018; 85025; 85044; 86021; 86038; 86140; 86160; 86225; 86317; 86430; 86704; 86706; 86850; 86900; 86901; 87040; 87070; 87077; 87086; 87088; 87186; 87205; 87340; 87389; 87522; 94760; 99285; J2405; J3370; J3475; J7030; J7040; J7050; P9016; U0002

== ENCOUNTER 2021-03-03 15:31 | Inpatient (IN) | payer OTHER ==
[2021-03-03 16:47] LABS: Basophils % 0.7 % (0-1.3); Lymphocytes % 6.6 % (15.3-44.8); MPV 6.4 fL (7.6-11.3); RBC Red Blood Cell Count 2.45 M/uL (3.86-4.86)
[2021-03-03 16:53] LABS: Protime INR 1.42
[2021-03-03 16:58] LABS: Hematocrit 19.7 % (36.0-45.0)
[2021-03-03 17:09] LABS: ALT/SGPT 7 U/L (12-78); AST/SGOT 9 U/L (15-37); Albumin 2.2 g/dL (3.4-5.0); Alkaline Phosphatase 72 U/L (45-117); BUN Blood Urea Nitrogen 14 mg/dL (7-18); Bicarbonate 26 mmol/L (21-32); Bilirubin Direct < 0.1 mg/dL (0-0.2); Bilirubin Total 0.2 mg/dL (0.2-1.0); Glucose Level 131 mg/dL (74-106); NT PRO-BNP 1083 pg/mL (<125); Potassium 4.3 mmol/L (3.5-5.1); Protein, Total 8.2 g/dL (6.4-8.2); Sodium Level 138 mmol/L (136-145); Troponin (Emerg Dept Use Only) < 0.02 ng/mL (0.0-0.045)
--- NOTE | 2021-03-03 17:11 | RAD REPORT ---
EXAM DESCRIPTION: RAD - Chest Single View - 03/03/2021 4:52 pm CLINICAL HISTORY: Weakness Chest pain. COMPARISON: Chest Single View dated 01/16/2020; Chest Single View dated 01/14/2020; Chest Pa And Lat ( 2 Views) dated 02/14/2019; Chest Single View dated 01/22/2019 FINDINGS: Portable technique limits examination quality. Mild bilateral interstitial lung opacities are present. The heart is mildly enlarged in size. No disp laced fractures.Aortic atherosclerosis. IMPRESSION: Mild CHF pattern.
--- NOTE | 2021-03-03 18:21 | EDPHYS ---
Physician Documentation [facility] Name: Deanna Flores Age: 65 yrs Sex: Female : 1955 Arrival Date: 03/03/2021 Time: 15:33 Bed 7 Private MD: ED Physician Emanuel Cornejo HPI: 03/03 18:55 This 65 yrs old Black Female presents to ER via Wheelchair with complaints of Weakness, kdr Vomiting, PAIN. 18:55 The patient presents to the emergency department with weakness of the entire body, kdr generalized weakness. Onset: The symptoms/episode began/occurred gradually, 3 day(s) ago. Context: occurred at home, occurred while the patient was at rest. Associated signs and symptoms: Pertinent positives: weakness, Vomiting. Severity of symptoms: At their worst the symptoms were mild moderate just prior to arrival, in the emergency department the symptoms are unchanged. Patient's baseline: Neuro: alert and fully oriented, Motor: no deficits, Ambulation: walks without assistance, Speech:. Current symptoms: confusion. Historical: - Allergies: 15:52 Sulfa (Sulfonamide Antibiotics); kg 15:52 Codeine; kg 15:52 PENICILLINS; kg - Home Meds: 15:52 Vitamin D Oral [Active]; Bystolic 5 mg Oral tab 1 tab once daily [Active]; aspirin 81 kg mg Oral TbEC 1 tab once daily [Active]; tramadol 50 mg Oral tab 1 tab every 4 hours [Active]; cetirizine 10 mg Oral tab 1 tab once daily [Active]; montelukast 10 mg oral tab 1 tab once daily [Active]; allopurinol 100 mg Oral tab 1 tab once daily [Active]; Xarelto 15 mg oral tab 1 tab [Active]; - PMHx: 15:52 Hypertension; Hyperlipidemia; Gout; COPD; CHF; "enlarged heart"; Frequent wounds from kg boils; - PSHx: 15:52 section; kg - Immunization history:: Adult Immunizations unknown. - Social history:: Smoking status: Patient denies any tobacco usage or history of. ROS: 19:00 Constitutional: Negative for fever, chills, and weight loss. She is feeling just kdr generally weak. She states that when she awakes in the morning she often is nauseated but that once she vomits then she feels better. Today she was still feeling poorly after vomiting for an extended period which made her more concerned and brought her to the ED. She indicated that this is normally how she feels when she becomes anemic and needs to be transfused. She states that she has been transfused 5 times before once here once at another facility and 3 times at [facility] Eyes: Negative for injury, pain, redness, and discharge, ENT: Negative for injury, pain, and discharge, Neck: Negative for injury, pain, and swelling, Cardiovascular: Negative for chest pain, palpitations, and edema, Respiratory: Negative for shortness of breath, cough, wheezing, and pleuritic chest pain, Back: Negative for injury and pain, : Negative for injury, bleeding, discharge, and swelling, MS/Extremity: Negative for injury and deformity, Skin: Negative for injury, rash, and discoloration, Psych: Negative for depression, anxiety, suicide ideation, homicidal ideation, and hallucinations, Allergy/Immunology: Negative for hives, rash, and allergies, Endocrine: Negative for neck swelling, polydipsia, polyuria, polyphagia, and marked weight changes, Hematologic/Lymphatic: Negative for swollen nodes, abnormal bleeding, and unusual bruising. 19:00 Abdomen/GI: Positive for vomiting, Usually just once a day and then she feels better. 19:00 Neuro: Positive for weakness. Exam: 19:00 Constitutional: This is a well developed, well nourished patient who is awake, alert, kdr and in no acute distress. Head/Face: Normocephalic, atraumatic. Eyes: Pupils equal round and reactive to light, extra-ocular motions intact. Lids and lashes normal. Conjunctiva and sclera are non-icteric and not injected. Cornea within normal limits. Periorbital areas with no swelling, redness, or edema. Neck: Trachea midline, no thyromegaly or masses palpated, and no cervical lymphadenopathy. Supple, full range of motion without nuchal rigidity, or vertebral point tenderness. No Meningismus. Chest/axilla: Normal chest wall appearance and motion. Nontender with no deformity. No lesions are appreciated. Cardiovascular: Regular rate and rhythm with a normal S1 and S2. No gallops, murmurs, or rubs. Normal PMI, no JVD. No pulse deficits. Respiratory: Lungs have equal breath sounds bilaterally, clear to auscultation and percussion. No rales, rhonchi or wheezes noted. No increased work of breathing, no retractions or nasal flaring. Abdomen/GI: Soft, non-tender, with normal bowel sounds. No distension or tympany. No guarding or rebound. No evidence of tenderness throughout. Back: No spinal tenderness. No costovertebral tenderness. Full range of motion. MS/ Extremity: Pulses equal, no cyanosis. Neurovascular intact. Full, normal range of motion. Neuro: Awake and alert, GCS 15, oriented to person, place, time, and situation. Cranial nerves II-XII grossly intact. Motor strength 5/5 in all extremities. Sensory grossly intact. Cerebellar exam normal. Normal gait. Psych: Awake, alert, with orientation to person, place and time. Behavior, mood, and affect are within normal limits. 19:00 Skin: abscess, that is small, that is moderate sized, All of the abscesses are chronic and not actively draining at this time. She has some well dressed., cellulitis, that is minimal, induration, that is mild is noted, located on the The abscesses are primarily on her lower extremities and in her groin. Vital Signs: 16:58 BP 113 / 54; Pulse 92; Resp 20; Temp 97.9; Pulse Ox 100% on R/A; Weight 86.18 kg; ch5 Height 5 ft. 5 in. (165.10 cm); Pain 2/10; 18:13 BP 124 / 54; Pulse 83; Resp 18; Pulse Ox 100% ; ch5 19:58 BP 99 / 37; Pulse 90; Resp 20; Pulse Ox 100% on NC; wg 21:48 BP 92 / 76; Pulse 84; Resp 18; Pulse Ox 99% ; ea 16:58 Body Mass Index 31.62 (86.18 kg, 165.10 cm) ch5 MDM: 18:20 Patient medically screened. kdr 19:00 Data reviewed: vital signs, nurses notes, lab test result(s), radiologic studies. kdr Counseling: I had a detailed discussion with the patient and/or guardian regarding: the historical points, exam findings, and any diagnostic results supporting the discharge/admit diagnosis, lab results, radiology results, the need for further work-up and treatment in the hospital. 03/03 16:13 Order name: Basic Metabolic Panel; Complete Time: 17:36 [facility] 03/03 16:13 Order name: CBC with Diff [facility] 03/03 16:13 Order name: LFT's; Complete Time: 17:36 [facility] 03/03 16:13 Order name: Magnesium; Complete Time: 17:36 [facility] 03/03 16:13 Order name: NT PRO-BNP; Complete Time: 17:36 [facility] 03/03 16:13 Order name: PT-INR; Complete Time: 17:36 [facility] 03/03 16:13 Order name: Troponin (emerg Dept Use Only); Complete Time: 17:36 [facility] 03/03 16:58 Order name: Type And Screen [facility] 03/03 17:36 Order name: Procalcitonin [facility] 03/03 17:36 Order name: Lactate [facility] 03/03 17:36 Order name: Blood Culture Adult (2) [facility] 03/03 16:13 Order name: XRAY Chest (1 view); Complete Time: 17:36 [facility] 03/03 16:13 Order name: EKG; Complete Time: 16:14 [facility] 03/03 16:13 Order name: Cardiac monitoring; Complete Time: 16:43 [facility] 03/03 16:13 Order name: EKG - Nurse/Tech; Complete Time: 18:14 [facility] 03/03 16:13 Order name: IV Saline Lock; Complete Time: 16:42 [facility] 03/03 16:13 Order name: Labs collected and sent; Complete Time: 16:43 [facility] 03/03 18:39 Order name: Ferritin [facility] 03/03 18:39 Order name: Slides for Pathologist Review [facility] 03/03 18:39 Order name: Transferrin Sat/Iron Binding [facility] 03/03 18:40 Order name: Retic Count [facility] 03/03 19:04 Order name: Packed RBC Leukored [facility] 03/03 21:46 Order name: SARS-COV-2 RT PCR [facility] 03/03 21:52 Order name: Manual Differential [facility] 03/03 16:13 Order name: O2 Per Protocol; Complete Time: 16:43 [facility] 03/03 16:13 Order name: O2 Sat Monitoring; Complete Time: 16:43 [facility] 03/03 17:13 Order name: Labs - recollect needed: recollect type and screen, reband pt; Complete bd Time: 18:43 Administered Medications: 18:57 Drug: morphine 4 mg Route: IM; Site: left deltoid; ch5 Disposition Summary: 03/03/21 18:20 Hospitalization Ordered Hospitalization Status: Inpatient Admission kdr Provider: Bulmaro Akins Location: Telemetry/MedSurg (Inpatient) kdr Condition: Fair kdr Problem: an acute exacerbation kdr Symptoms: have improved kdr Bed/Room Type: Standard kdr Room Assignment: 408(03/03/21 21:53) tl1 Diagnosis - Weakness kdr - Anemia, unspecified kdr - Cellulitis of groin kdr - Vomiting kdr Forms: - Medication Reconciliation Form kdr - SBAR form kdr Signatures: Dispatcher [employer] EDMS Stacey Shahid Kevin, MD MD kdr Jorje Sanchez PA PA [id number] Araceli Castro RN RN tl1 Rula Del Angel RN RN ea Graham, Kristen, RN RN kg Curry Foster RN RN ch5 Corrections: (The following items were deleted from the chart) 18:40 18:39 Iron ordered. EDMS EDMS 19:04 18:35 PACKED RBC LEUKORED -1+BB.LAB.BRZ ordered. EDMS EDMS 19:04 18:37 ABO/RH typing ordered. EDMS EDMS 19:04 18:37 Antibody Screen ordered. EDMS EDMS 19:41 18:36 CORONAVIRUS+MR.LAB.BRZ ordered. EDMS EDMS 21:53 18:20 kdr tl1
--- NOTE | 2021-03-03 18:21 | ER ---
Nurse's Notes [facility] Name: Deanna Flores Age: 65 yrs Sex: Female : 1955 Arrival Date: 03/03/2021 Time: 15:33 Bed 7 Private MD: Diagnosis: Weakness;Anemia, unspecified;Cellulitis of groin;Vomiting Presentation: 03/03 15:50 Chief complaint: Patient states: Weakness, dizziness, nausea, vomiting x 2 days wounds kg on legs. Coronavirus screen: Vaccine status: Patient reports receiving the 2nd dose of the covid vaccine. Date September 12, 2020 [facility] Patient reports receiving the 1st dose of the Covid vaccine. Date August 22, 2020 [facility] Client denies travel out of the [place] in the last 14 days. nausea, vomiting. Client presents with at least one sign or symptom that may indicate coronavirus-19. Standard/surgical mask placed on the client. Provider contacted for isolation considerations. Ebola Screen: Patient negative for fever greater than or equal to 101.5 degrees Fahrenheit, and additional compatible Ebola Virus Disease symptoms Patient denies exposure to infectious person. Patient denies travel to an Ebola-affected area in the 21 days before illness onset. Initial Sepsis Screen: Does the patient meet any 2 criteria? No. Patient's initial sepsis screen is negative. Does the patient have a suspected source of infection? No. Patient's initial sepsis screen is negative. Risk Assessment: Do you want to hurt yourself or someone else? Patient reports no desire to harm self or others. Onset of symptoms was March 01, 2021. 15:50 Method Of Arrival: Wheelchair kg 15:50 Acuity: JUDI 3 kg Triage Assessment: 19:58 General: Appears Behavior is calm, cooperative, appropriate for age. wg Historical: - Allergies: 15:52 Sulfa (Sulfonamide Antibiotics); kg 15:52 Codeine; kg 15:52 PENICILLINS; kg - Home Meds: 15:52 Vitamin D Oral [Active]; Bystolic 5 mg Oral tab 1 tab once daily [Active]; aspirin 81 kg mg Oral TbEC 1 tab once daily [Active]; tramadol 50 mg Oral tab 1 tab every 4 hours [Active]; cetirizine 10 mg Oral tab 1 tab once daily [Active]; montelukast 10 mg oral tab 1 tab once daily [Active]; allopurinol 100 mg Oral tab 1 tab once daily [Active]; Xarelto 15 mg oral tab 1 tab [Active]; - PMHx: 15:52 Hypertension; Hyperlipidemia; Gout; COPD; CHF; "enlarged heart"; Frequent wounds from kg boils; - PSHx: 15:52 section; kg - Immunization history:: Adult Immunizations unknown. - Social history:: Smoking status: Patient denies any tobacco usage or history of. Screenin:58 Abuse screen: Denies threats or abuse. Denies injuries from another. Nutritional 5 screening: No deficits noted. Tuberculosis screening: No symptoms or risk factors identified. Fall Risk None identified. Assessment: 16:43 Reassessment: No changes from previously documented assessment. General: Appears. Pain:.5 20:43 Reassessment: 1st Unit of Blood started at 2014. Pt continues to be reassessed without wg signs of transfusion reaction. Vital Signs: 16:58 BP 113 / 54; Pulse 92; Resp 20; Temp 97.9; Pulse Ox 100% on R/A; Weight 86.18 kg; ch5 Height 5 ft. 5 in. (165.10 cm); Pain 2/10; 18:13 BP 124 / 54; Pulse 83; Resp 18; Pulse Ox 100% ; ch5 19:58 BP 99 / 37; Pulse 90; Resp 20; Pulse Ox 100% on NC; wg 21:48 BP 92 / 76; Pulse 84; Resp 18; Pulse Ox 99% ; ea 16:58 Body Mass Index 31.62 (86.18 kg, 165.10 cm) 5 ED Course: 15:33 Patient arrived in ED. [id number] 15:52 Triage completed. kg 16:12 Emanuel Cornejo MD is Attending Physician. kdr 16:43 Curry Foster RN is Primary Nurse. 5 16:43 Inserted saline lock: 22 gauge in left antecubital area, using aseptic technique. ss ,using aseptic technique. Ultrasound guided Blood collected. 16:52 XRAY Chest (1 view) In Process Unspecified. EDMS 16:58 Inserted saline lock: Blood collected. Oxygen administration via nasal cannula \\T\\ 2L/min.5 16:58 Bed in low position. Call light in reach. Side rails up X2. [facility] 17:28 Initial lab(s) drawn, by ED staff, sent to lab. EKG done, by ED staff, reviewed by Rao Cornejo MD. 17:28 Patient has correct armband on for positive identification. Warm blanket given. Pillow mh5 given. product safety officer on. Pulse ox on. NIBP on. 18:18 Nadir Akins MD is Hospitalizing Provider. kdr 18:18 Bulmaro Akins MD is Hospitalizing Provider. kdr 18:36 Inserted saline lock: 22 gauge in right antecubital area, using aseptic technique. ss ,using aseptic technique. Ultrasound guided Blood collected. 19:41 No provider procedures requiring assistance completed. Patient admitted, IV remains in ea place. 19:41 Arm band placed on right wrist. ea 19:51 Inserted saline lock: 20 gauge in left forearm, using aseptic technique. wg Administered Medications: 18:57 Drug: morphine 4 mg Route: IM; Site: left deltoid; ch5 Outcome: 18:20 Decision to Hospitalize by Provider. kdr 22:46 Patient left the ED. ea Signatures: Dispatcher [employer] EDMS Emanuel Cornejo MD MD [facility] Marly Webb, RN RN Oxana Norris Rula Masters RN Rosalina Kyes ea RN ARELI Curry Foster, RN RN [facility] Sameer Maynard RN wg Mitchell, Jazmin [id number]
[2021-03-03] MEDS ORDERED: ONDANSETRON 4 MG/2 ML VIAL ONE (19:03)
[2021-03-03] MEDS ORDERED: MORPHINE 4 MG/ML SYR ONE (19:03)
[2021-03-03 19:10] LABS: RBC Red Blood Cell Count 2.47 M/uL (3.86-4.86)
[2021-03-03 20:13] LABS: Ferritin 509.7 ng/mL (8-388)
--- NOTE | 2021-03-03 20:14 | P.HP ---
Certification for Inpatient Patient admitted to: Inpatient With expected LOS: >2 Midnights Patient will require the following post-hospital care: None Practitioner: I am a practitioner with admitting privileges, knowledge of patient current condition, hospital course, and medical plan of care. Services: Services provided to patient in accordance with Admission requirements found in Title 42 Section 412.3 of the Code of Federal Regulations Patient History Date of Service: 03/03/21 Primary Care Provider: Dr. Peterson, dr. valdez, dr. stubbs Reason for admission: Anemia, cellulitis History of Present Illness: 65-year-old -Chinese female with history of hidradenitis,, CKD 3, iron deficiency anemia,, COPD on home oxygen, chronic diastolic congestive heart failure presents emergency department for near syncope. Patient reports that she was at home and felt very weak like she did not pass out and needed to lay down in bed, for this reason patient presented to the emergency department as she felt like she may need a blood transfusion which she has had to have in the past approximately 5 times in the last 2 years. Patient reports that she has bleeding from her groin area secondary to the hidradenitis and she has been on Xarelto as well which does seem to make the bleeding worse. Patient was evaluated in the emergency department labs were significant for white blood cell count 14.4 hemoglobin 6.3 hematocrit 19.7 platelets 600 creatinine 1.84 GFR 33 glucose 131 iron 19 TIBC 169 transferrin 121 transferring saturation 11.2 BNP 1083 procalcitonin 0.36. Patient denies any coffee-ground emesis, hematemesis, melena or hematochezia, reports that she had rectal exam a couple of weeks ago which was negative. Reports bleeding from groin area. Patient has never had colonoscopy or endoscopy performed though. Given acute blood loss anemia and apparent cellulitis with leukocytosis ED provider wishes to admit for further evaluation and management. Allergies codeine Allergy (Verified 01/22/19 20:01) Anaphylaxis Penicillins Allergy (Verified 01/23/19 02:30) Anaphylaxis Sulfa (Sulfonamide Antibiotics) Allergy (Verified 01/22/19 20:01) Anaphylaxis Home Medications: Allopurinol 1 tab PO DAILY 01/13/20 Aspirin [Olimpia Chewable Aspirin] 81 mg PO DAILY 01/13/20 Cetirizine HCl 1 tab PO DAILY 01/13/20 Clopidogrel Bisulfate [Plavix*] 75 mg PO DAILY 01/13/20 Fluticasone Propion/Salmeterol [Fluticasone-Salmeterol 250-50] 2 spray IH BID 01/13/20 Montelukast [Singulair*] 1 tab PO DAILY 01/13/20 Nebivolol HCl [Bystolic*] 1 tab PO DAILY 01/13/20 Torsemide 10 mg PO DAILY 01/13/20 Tramadol HCl [Ultram] 1 tab PO Q6H PRN 01/13/20 Vit D3 2000 Unit 2,000 unit PO DAILY 01/13/20 Chlorhexidine 4% [Betasept*] 1 appl TOP BID #10 btl 01/17/20 levoFLOXacin [Levaquin] 500 mg PO DAILY #7 tab 01/17/20 rifAMPin [Rifadin] 300 mg PO BID #14 capsule 01/17/20 - Past Medical/Surgical History Diabetic: No -: Chronic diastolic congestive heart failure -: COPD on home oxygen -: Gout -: Hyperlipidemia -: HTN -: Hidradenitis -: Csection Psychosocial/ Personal History: Lives at home - Family History Father -: Cancer Mother -: Cancer - Social History Smoking Status: Former smoker Alcohol use: No CD- Drugs: No Caffeine use: Yes Place of Residence: Home Review of Systems 10-point ROS is otherwise unremarkable Cardiovascular: Light Headedness, As per HPI Integumentary: Other (Hidradenitis lesions noted bilateral groin area with some seeping of blood/purulent drainage), As per HPI Physical Examination - Physical Exam General: Alert, In no apparent distress, Oriented x3 HEENT: Atraumatic, PERRLA, Mucous membr. moist/pink, EOMI, Sclerae nonicteric Neck: Supple, 2+ carotid pulse no bruit, No LAD, Without JVD or thyroid abnormality Respiratory: Clear to auscultation bilaterally, Normal air movement Cardiovascular: Regular rate/rhythm, Normal S1 S2 Gastrointestinal: Normal bowel sounds, No tenderness Musculoskeletal: No tenderness Integumentary: Other (Hidradenitis lesions noted to bilateral groin area with some oozing blood/purulent drainage noted) Neurological: Normal gait, Normal speech, Normal strength at 5/5 x4 extr, Normal tone, Normal affect - Studies Laboratory Data (last 24 hrs) 03/03/21 16:40: PT 16.4 H, INR 1.42 03/03/21 16:40: WBC 14.40 H, Hgb 6.3 L*, Hct 19.7 L*, Plt Count 600 H 03/03/21 16:40: Sodium 138, Potassium 4.3, BUN 14, Creatinine 1.84 H, Glucose 131 H, Magnesium 2.0, Total Bilirubin 0.2, AST 9 L, ALT 7 L, Alkaline Phosphatase 72 Assessment and Plan - Plan Assessment: Acute blood loss anemia Hidradenitis suppurativa CKD 3 Chronic diastolic congestive heart failure COPDon home oxygen Hypertension Hyperlipidemia Gout Plan: Acute blood loss anemia: Patient denies any coffee-ground emesis, hematemesis, hematochezia or melena, patient on Xarelto which she reports she was told for having the irregular heart rhythm, at this time patient is in normal sinus rhythm, patient reports she was due to have a follow-up with her benefit specialist to have a repeat EKG coming up. Will hold Xarelto at this time given bleeding from hidradenitis lesions, transfuse 2 units packed red blood cells repeat H&H 2 hours post. Transfuse to hemoglobin of 8. Patient will need to follow-up with GI as well at discharge as she has never had colonoscopy or EGD before. Hidradenitis suppurativa: Some bleeding, small amount of purulent drainage noted with some erythema and leukocytosis will cover with antibiotics Levaquin and vancomycin at this time, infectious disease consulted has seen patient previously. Will reevaluate labs in the morning. CKD 3: Stable, continue to monitor closely. Consult nephrology as necessary. Chronic diastolic congestive heart failure: Stable, patient does not appear significantly overloaded at this time. Obtain and continue medications as appropriate. COPDon home oxygen: Patient uses 3.5 L home oxygen, continue. No exacerbation noted at this time provide nebs as needed. Hypertension: Continue home medications Hyperlipidemia:Continue home medications Gout:Continue home medications DVT PPX: SCD Code status: Full Discharge Plan: Home Plan to discharge in: 48 Hours - Advance Directives Does patient have a Living Will: No Does patient have a Durable POA for Healthcare: No - Code Status/Comfort Care Code Status Assessed: Yes (Full code) Critical Care: No Time Spent Managing Pts Care (In Minutes): 55
[2021-03-03] MEDS ORDERED: NA CHLORIDE 0.9% 500 ML ONE (20:28)
[2021-03-03 21:52] LABS: Blood Morphology Comment NOT SEEN (NOT SEEN); Platelet Estimate INCR; Platelets, Giant FEW
[2021-03-03] MEDS ORDERED: Levofloxacin500mg IV 500 MG/100 ML BAG IV ONE (23:00)
[2021-03-03] MEDS ORDERED: ONDANSETRON 4 MG/2 ML VIAL IV PRN (23:14)
[2021-03-03] MEDS ORDERED: ACETAMINOPHEN 500 MG TAB PO PRN (23:14)
[2021-03-03] MEDS ORDERED: VANCOMYCIN/NS 1 gm 1 GM/250 ML BAG IVPB SCH (23:14)
[2021-03-04] MEDS ORDERED: VANCOMYCIN 1.5 GM in NA CHLORIDE 0.9% 500 ML IVPB SCH ×2
[2021-03-04] MEDS ORDERED: NA CHLORIDE 0.9% 250 ML ONE (02:10)
[2021-03-04] MEDS ORDERED: TRAMADOL HCL 50 MG TAB PO PRN (05:14)
[2021-03-04 05:16] LABS: Absolute Lymphocytes (CBC) 2.7 K/uL (0.7-4.9); Basophils % 0.5 % (0-1.3); Hematocrit 23.3 % (36.0-45.0); Lymphocytes % 23.6 % (15.3-44.8); MPV 6.6 fL (7.6-11.3); RBC Red Blood Cell Count 2.84 M/uL (3.86-4.86)
[2021-03-04] MEDS: MORPHINE 2 MG/ML SYR IV PRN ×2 (05:31→14:49)
[2021-03-04 06:26] LABS: Albumin 2.1 g/dL (3.4-5.0); Bilirubin Total 0.6 mg/dL (0.2-1.0); Magnesium 2.1 mg/dL (1.8-2.4); Potassium 4.3 mmol/L (3.5-5.1); Protein, Total 7.6 g/dL (6.4-8.2); Thyroid Stimulating Hormone 0.017 uIU/mL (0.360-3.740)
[2021-03-04] MEDS ORDERED: VANCOMYCIN 1 GM/VIAL ONE (06:28)
--- NOTE | 2021-03-04 06:41 | P.PN ---
Date of Service: 03/04/21 Subjective: feels better after receiving blood transfusion, continues with some blood oozing from hidradenitis states she only wants to focus on slowing the bleed and blood transfusions ROS: 10 point ROS otherwise negative Physical Exam: Gen: AAOx3, NAD HEENT: normal conjunctiva, sclera anicteric CV: regular rate/rhythm, no edema Pulm: CTAB, no wheeze/rales Abd: soft, nontender, nondistended Integumentary: b/l groin/ upper thigh hidradenitis suppurativa, fluctuance on R upper thigh, tender throughout. R axilla as well Problem List: Acute blood loss anemia acute on chronic anemia Hidradenitis suppurativa CKD 3 Chronic diastolic congestive heart failure COPDon home oxygen Hypertension Hyperlipidemia Gout PAD patient reports has been having continued bleeding from hidradenitis suppurativa sites since starting Xarelto several weeks ago states she was started on Xarelto when being treated for COVID pneumonia and was told she had an "irregular heart rate" hold xarelto, patient states she no longer wants to take it, rather deal with increased risk of stroke if she does truly have paroxysmal afib - currently in sinus rhythm states she would prefer to go back to taking aspirin + plavix inguinal lesions are tender and large, concern for abscess - discussed with patient, states she refuses general surgery consult at this time, does not want surgery CT ordered to evaluate for abscess ID consulted will further employment counselor patient after CT results Hgb remains < 8, will recheck H/H this evening, transfuse for Hgb >8 continue home meds as tolerated/necessary Code status: Full Dispo: anticipate dc home in ~2 days Time spent managing patient's care: 40 minutes
[2021-03-04] MEDS: TORSEMIDE 20 MG TAB PO SCH (07:50)
[2021-03-04] MEDS: ASPIRIN 81 MG CHEWABLE TABLET PO SCH (07:50)
[2021-03-04] MEDS: allopurinoL 100 MG TAB PO SCH (07:51)
[2021-03-04] MEDS: NEBIVOLOL HCL 5 MG TAB PO SCH ×2 (07:51→08:01)
[2021-03-04] MEDS: LORATADINE 10 MG TAB PO SCH (07:53)
[2021-03-04] MEDS: FE SULF/FA/VIT B COMP & C TAB PO SCH (07:53)
[2021-03-04] MEDS: VITAMIN D 1000 UNIT TAB PO SCH (07:54)
[2021-03-04] MEDS: CHLORHEXIDINE GLUCO 4% 120 ML TOP SCH ×2 (09:00→21:00)
[2021-03-04] MEDS ORDERED: LORATADINE 10 MG TAB PO SCH (09:00)
[2021-03-04] MEDS: MONTELUKAST 10 MG TAB PO SCH (09:00)
[2021-03-04] MEDS: FLUTICASONE SALMETEROL IH SCH ×3 (09:00→21:00)
[2021-03-04] MEDS ORDERED: HOME MED 1 EA UNK (Cetirizine Hcl [Cetirizine Hcl] 10 MG Tablet) PO SCH (09:00)
[2021-03-04 12:01] LABS: Urine Appearance CLEAR (Clear); Urine Bilirubin NEGATIVE (Negative); Urine Blood 3+ (Negative); Urine Color YELLOW (Yellow); Urine Glucose NEGATIVE (Negative); Urine Protein NEGATIVE (Negative); Urine Specific Gravity <=1.005 (1.005-1.030); Urine Urobilinogen 0.2 mg/dL (0.2-1.0)
[2021-03-04 12:07] LABS: Urine Microscopic Reflex ORDER UMIC
[2021-03-04 12:24] LABS: Urine Bacteria <20 /HPF (<20); Urine RBC >50 /HPF (NONE SEEN)
--- NOTE | 2021-03-04 12:33 | P.PN ---
Subjective Date of Service: 03/04/21 Primary Care Provider: Dr. Peterson, dr. valdez, dr. stubbs Chief Complaint: Anemia, cellulitis The patient is a 65-year-old female with an extensive past medical history including hidradenitis, CKD stage 3, iron-deficiency anemia, COPD on home oxygen, chronic diastolic congestive heart failure, smoking history, and hyperlipidemia who presented to the emergency department due to near syncope. Patient reports that she was at home and started feeling very weak and like she was going to pass out. Patient stated that she felt she needed a blood transfusion and states that she has had approximately 5 transfusions within the past 2 years. Patient reports that she has been bleeding from her groin area secondary to her hidradenitis. Patient denies coffee-ground nieces, melena or hematochezia reports that she had a rectal exam a couple weeks ago which was negative. Patient only reports bleeding from her groin area. In the ED labs are significant for a WBC of 14.4, hemoglobin 6.3, hematocrit 19.7, platelets 600, creatinine 1.84, GFR 33, and glucose 131. Infectious disease has been consulted to manage the patient's groin and underarm hidradenitis. Patient tested code with positive, however not likely to infection as patient was recently diagnosed and treated for coded. Patient currently utilizing 3 L of oxygen via nasal cannula. Patient denies nausea, vomiting, diarrhea, shortness breath, chest pain. Physical Examination - Vital Signs Temperature: 99 F Blood Pressure: 134/58 Pulse: 85 Respirations: 19 Pulse Ox (%): 91 - Physical Exam General: Alert, In no apparent distress, Oriented x3, Obese HEENT: Atraumatic, Normocephalic Neck: Supple, 2+ carotid pulse no bruit, JVD not distended Respiratory: Clear to auscultation bilaterally, Normal air movement Cardiovascular: No edema, Normal pulses, Regular rate/rhythm Capillary refill: <2 Seconds Gastrointestinal: Normal bowel sounds, Soft and benign Musculoskeletal: No clubbing, No swelling, No contractures Integumentary: Other (hidradenitis to groin and undrarms with foul odor, drainage, and tenderness ) - Studies Laboratory Data (last 24 hrs) 03/03/21 16:40: PT 16.4 H, INR 1.42 03/03/21 16:40: WBC 14.40 H, Hgb 6.3 L*, Hct 19.7 L*, Plt Count 600 H 03/03/21 16:40: Sodium 138, Potassium 4.3, BUN 14, Creatinine 1.84 H, Glucose 131 H, Magnesium 2.0, Total Bilirubin 0.2, AST 9 L, ALT 7 L, Alkaline Phosphatase 72 Assessment And Plan - Plan Antibiotics: Doxycycline Start: 03/04 Stop:-- Assessment/plan Hidradenitis suppuraiva to groin and underarms Rey stage 3. The area is diffusely swollen, fluctuant, and tender. Patient is refusing surgical consultation at this time. CT abdomen and pelvis without contrast ordered. Patient empirically started on vancomycin and Levaquin which have been discontinued. Continue monotherapy with doxycycline. Apply clindamycin lotion to affected areas daily. Patient was started on rifampin, unknown as to why a. Patient denies any chronic antibiotic use. As such rifampin has been discontinued. Leukocytosis Continue to monitor WBC trend Anemia/protein caloric malnutrition/CKD stage 3/COPD Medical management per primary team Continue monitor CBC and BMP Continue to monitor for signs of infection Plan of care discussed with Thank you for consultation
--- NOTE | 2021-03-04 13:41 | RAD REPORT ---
EXAM DESCRIPTION: CT - Abdomen Pelvis Wo Contrast - 03/04/2021 1:19 pm CLINICAL HISTORY: Abdominal pain COMPARISON: None TECHNIQUE: Computed axial tomography of the abdomen and pelvis was obtained. IV and oral contrast we re not requested. All CT scans are performed using dose optimization technique as appropriate and may include automated exposure control or mA/KV adjustment according to patient size. FINDINGS: The evaluation of solid organs, vessels and bowel is limited secondary to the lack of con trast administration. The liver, spleen, pancreas, adrenals and kidneys appear grossly normal. There is no evidence of diverticulitis. Increased density within the gallbladder 4.4 centimeter area of increased density medial right groin/right labia. 4 centimeter fluid collection posterior subcutaneous tissue to the left of the anus. Atherosclerotic disease IMPRESSION: 4.4 centimeter area of increased density medial right groin/right labia. 4 centimeter fluid collection posterior subcutaneous tissue to the left of the anus. Both of these areas may represent abscesses. Increased density within the perineal tissues likely cellulitis Increased density within the gallbladder may represent sludge or stones
--- NOTE | 2021-03-04 15:58 | EKG ---
Test Date: 2021-03-03 Test Time: 17:42:42 Sanitation Superintendent: VIDYA MEASUREMENT RESULTS: Intervals: Rate: 83 MA: 154 QRSD: 88 QT: 380 QTc: 446 [place]: P: 45 MA: 154 QRS: 20 T: 44 INTERPRETIVE STATEMENTS: Normal sinus rhythm Normal ECG Compared to ECG 01/22/2019 15:52:45 No significant changes Electronically Signed On 03-04-21 15:56:24 CDT by Mark Licona
[2021-03-04 19:49] LABS: Hematocrit 24.5 % (36.0-45.0)
[2021-03-04] MEDS: DOXYCYCLINE 100 MG CAP PO SCH (21:17)
[2021-03-04] MEDS ORDERED: Levofloxacin 250mg IV 250 MG/50 ML BAG IV SCH (23:00)
[2021-03-05 05:55] LABS: Absolute Lymphocytes (CBC) 1.8 K/uL (0.7-4.9); Basophils % 0.7 % (0-1.3); Hematocrit 23.7 % (36.0-45.0); Lymphocytes % 14.7 % (15.3-44.8); MPV 6.7 fL (7.6-11.3); RBC Red Blood Cell Count 2.84 M/uL (3.86-4.86)
[2021-03-05 06:00] LABS: Bilirubin Total 0.3 mg/dL (0.2-1.0); Potassium 4.5 mmol/L (3.5-5.1); Protein, Total 7.5 g/dL (6.4-8.2)
[2021-03-05] MEDS: ASPIRIN 81 MG CHEWABLE TABLET PO SCH ×2 (06:13→09:00)
--- NOTE | 2021-03-05 06:28 | P.PN ---
Date of Service: 03/05/21 Subjective: States bleeding is slightly improved, feels better after transfusion yesterday Reports pain in her groin/upper thighs remains the same and has been for several weeks. Discussed CT results of concern for 2 abscesses Patient states she does not want surgery, was not happy with surgery last time Discussed this may be why her lesions have not been healing over the last few months compared to prior episodes. ROS: 10 point ROS otherwise negative Physical Exam: Gen: AAOx3, NAD HEENT: normal conjunctiva, sclera anicteric CV: regular rate/rhythm, no edema Pulm: CTAB, no wheeze/rales Abd: soft, nontender, nondistended Integumentary: b/l groin/ upper thigh hidradenitis suppurativa, fluctuance on R upper thigh, tender throughout. Problem List: Acute blood loss anemia acute on chronic anemia Hidradenitis suppurativa with concern for abscess formation CKD 3 Chronic diastolic congestive heart failure COPDon home oxygen Hypertension Hyperlipidemia Gout PAD patient reports has been having continued bleeding from hidradenitis suppurativa sites since starting Xarelto several weeks ago states she was started on Xarelto when being treated for COVID pneumonia and was told she had an "irregular heart rate" hold xarelto, patient states she no longer wants to take it, rather deal with increased risk of stroke if she does truly have paroxysmal afib - currently in sinus rhythm states she would prefer to go back to taking aspirin + plavix inguinal lesions are tender and large, concern for abscess - discussed with patient CT also concern for abscess Discussed with patient, agreeable to general surgery consult for their input, but states she does not plan on having surgery. I feel consult is warranted to the patient to make the most informed decision for her health ID consulted Hgb remains < 8, transfuse 1 unit PRBC, for a total of 3 units, recheck hemoglobin tomorrow continue home meds as tolerated/necessary Code status: Full Dispo: anticipate dc home in ~1-2 days Time spent managing patient's care: 40 minutes
[2021-03-05] MEDS ORDERED: NA CHLORIDE 0.9% 250 ML IV SCH (07:00)
[2021-03-05] MEDS: FE SULF/FA/VIT B COMP & C TAB PO SCH (08:00)
[2021-03-05] MEDS: TORSEMIDE 20 MG TAB PO SCH (09:00)
[2021-03-05] MEDS: allopurinoL 100 MG TAB PO SCH (09:00)
[2021-03-05] MEDS: MONTELUKAST 10 MG TAB PO SCH (09:00)
[2021-03-05] MEDS: CHLORHEXIDINE GLUCO 4% 120 ML TOP SCH ×3 (09:00→21:00)
[2021-03-05] MEDS: VITAMIN D 1000 UNIT TAB PO SCH (09:00)
[2021-03-05] MEDS: NEBIVOLOL HCL 5 MG TAB PO SCH (09:00)
[2021-03-05] MEDS: DOXYCYCLINE 100 MG CAP PO SCH (09:00)
[2021-03-05] MEDS: FLUTICASONE SALMETEROL IH SCH ×2 (09:00→20:25)
--- NOTE | 2021-03-05 12:27 | P.PN ---
Subjective Date of Service: 03/05/21 Primary Care Provider: Dr. Peterson, dr. valdez, dr. stubbs Chief Complaint: Anemia, cellulitis Patient seen examined at bedside, stating that doxycycline is making her nauseous. Doxy switched to clindamycin. Probiotic started. Physical Examination - Vital Signs Temperature: 97.8 F Blood Pressure: 116/56 Pulse: 80 Respirations: 18 Pulse Ox (%): 95 Assessment And Plan - Plan Physical Exam: General: Alert, In no apparent distress, Oriented x3, Obese HEENT: Atraumatic, Normocephalic Neck: Supple, 2+ carotid pulse no bruit, JVD not distended Respiratory: Clear to auscultation bilaterally, Normal air movement Cardiovascular: No edema, Normal pulses, Regular rate/rhythm Capillary refill: <2 Seconds Gastrointestinal: Normal bowel sounds, Soft and benign Musculoskeletal: No clubbing, No swelling, No contractures Integumentary: Other (hidradenitis to groin and undrarms with foul odor, drainage, and tenderness ) Antibiotics: clindamycin start: 03/05 stop: -- Doxycycline Start: 03/04 Stop:03/05 Assessment/plan Hidradenitis suppuraiva to groin and underarms Rey stage 3. The area is diffusely swollen, fluctuant, and tender. Patient is refusing surgical consultation at this time. CT abdomen and pelvis without contrast showed 2 abscesses 1 in the medial groin/right labia and 1 year the left anus both approximately 4 cm. Doxycycline discontinued is patient's T was making her nauseous, clindamycin started. Also probiotic started. Patient was started on rifampin, unknown as to why, Patient denies any chronic antibiotic use. As such rifampin has been discontinued. Leukocytosis Continue to monitor WBC trend Anemia/protein caloric malnutrition/CKD stage 3/COPD Medical management per primary team Continue monitor CBC and BMP Continue to monitor for signs of infection Plan of care discussed with Thank you for consultation
[2021-03-05] MEDS ORDERED: VANCOMYCIN 1.5 GM in NA CHLORIDE 0.9% 500 ML IVPB SCH (18:00)
[2021-03-05] MEDS: TRAMADOL HCL 50 MG TAB PO PRN (18:15)
[2021-03-05] MEDS ORDERED: INFLUENZA VACCINE (for 6+ mo) 0.5 ML DOSE IMVAC ONE (19:00)
[2021-03-05 19:28] LABS: Absolute Lymphocytes (CBC) 1.7 K/uL (0.7-4.9); Basophils % 0.4 % (0-1.3); Lymphocytes % 11.9 % (15.3-44.8); MPV 6.5 fL (7.6-11.3); RBC Red Blood Cell Count 3.44 M/uL (3.86-4.86)
[2021-03-05] MEDS: LACTOBACILLUS/ACIDOPHILUS TAB PO SCH (20:19)
[2021-03-05 22:04] VITALS: BMI 32.4
[2021-03-06] MEDS: TRAMADOL HCL 50 MG TAB PO PRN (04:52)
[2021-03-06 06:00] LABS: Absolute Lymphocytes (CBC) 2.1 K/uL (0.7-4.9); Basophils % 0.4 % (0-1.3); Hematocrit 26.8 % (36.0-45.0); Lymphocytes % 16.1 % (15.3-44.8); MPV 6.6 fL (7.6-11.3); RBC Red Blood Cell Count 3.31 M/uL (3.86-4.86)
[2021-03-06 06:26] LABS: Albumin 2.2 g/dL (3.4-5.0); Bilirubin Total 0.3 mg/dL (0.2-1.0); Magnesium 1.9 mg/dL (1.8-2.4); Potassium 3.7 mmol/L (3.5-5.1); Protein, Total 7.8 g/dL (6.4-8.2)
[2021-03-06 08:53] VITALS: TEMP 97.6
[2021-03-06] MEDS: FE SULF/FA/VIT B COMP & C TAB PO SCH (08:54)
[2021-03-06] MEDS: LORATADINE 10 MG TAB PO SCH (08:55)
[2021-03-06] MEDS: allopurinoL 100 MG TAB PO SCH (08:55)
[2021-03-06] MEDS: VITAMIN D 1000 UNIT TAB PO SCH (08:55)
[2021-03-06] MEDS: MONTELUKAST 10 MG TAB PO SCH (08:55)
[2021-03-06] MEDS: ASPIRIN 81 MG CHEWABLE TABLET PO SCH (08:55)
[2021-03-06] MEDS: LACTOBACILLUS/ACIDOPHILUS TAB PO SCH (08:55)
[2021-03-06] MEDS: NEBIVOLOL HCL 5 MG TAB PO SCH (08:59)
[2021-03-06] MEDS: FLUTICASONE SALMETEROL IH SCH (08:59)
[2021-03-06] MEDS: CHLORHEXIDINE GLUCO 4% 120 ML TOP SCH (09:00)
[2021-03-06] MEDS ORDERED: NA CHLORIDE 0.9% 500 ML IV ONE (10:48)
--- NOTE | 2021-03-06 12:25 | CON ---
Date of Consultation: 03/05/2021 Reason For Consultation: Hidradenitis suppurativa. History Of Present Illness: The patient is a 65-year-old female with the long histo ry of hidradenitis, chronic renal insufficiency, iron deficiency anemia, COPD on home oxygen, and hea rt failure, came to the emergency room because of weakness. She was anemic in the emergency room. S he was admitted and she was worked up. She was also found to have 2 areas of infection related to hi dradenitis in the right groin and patient has refused surgery in the past and currently does as well, but did not talk to me. She has been on blood thinners and I cannot at this time appreciate why she is on blood thinner. Does not appear to have AFib or stent or any acute cardiac events in the recen t past, but we would have check with diesel tractor engine mechanic regarding that. She was transfused, feels much bet ter. It is manageable and there is drainage from both of those areas so does not close the abscess. There are sinuses involvement as well. No sore throat, runny nose, cough, headaches, or dizziness. No fever or chills. Review of Systems: Otherwise unremarkable. Please note, the patient is currently positive. Past Medical History: Chronic diastolic congestive heart failure; COPD, on home oxygen; gout; hyperl ipidemia; hypertension; hidradenitis. Past Surgical History: . Allergies: CODEINE, PENICILLIN, SULFA. Social History: The patient used to smoke in the past. Does not currently. She does not drink alco hol. Family History: Significant for unknown type of cancer in parents. Physical Examination: Vital Signs: Currently stable. Blood pressure is a little low at systolic is in the high 80s and di astolic in between 50 and 656. She is afebrile. General: She is awake, alert, and oriented x3. Head and Neck: Cranial nerves 2 through 12 are grossly within normal limits. No neck masses. No JV D. Throat clear. Neck is supple. Chest: Clear. Heart: S1 and S2. Abdomen: Soft. Extremities: Neurovascularly intact. Neuro: Nonfocal. Skin: In the right groin region, there are 2 areas of open wound with induration and slight fluctuan ce underneath it. Approximately 4-6 cm each on the right side of the labia and medial to the inguina l crease. Laboratory Data: White count is 13.3 with a left shift. Platelets are 553. INR is 1.42. Chemistry reviewed, BUN is 21, creatinine is 2.01. Assessment: 65-year-old female with multiple medical problems, on blood thinners with a long history of hidradenitis suppurativa with small abscess in 2 places, draining on its own associated with cell ulitis. Recommendation: The patient does not want surgery and is on blood thinners. I do not think surgery is the best option for this patient at this very moment, but should she decide we can assess from the Cardiology Department whether we can stop the blood thinners and proceed with surgery if she agrees. In the meantime, antibiotics and culture directed antibiotics and wound care is ordered, is appropr iate and she can follow up with me in the wound healing center upon discharge. BRADLEY/FRANSISCA Voice ID: [id number] Report ID: [id number]
--- NOTE | 2021-03-06 15:47 | P.DS ---
Admission Date: 03/03/21 Discharge Date: 03/06/21 Primary Care Provider: Dr. Peterson, dr. valdez, dr. stubbs Disposition: ROUTINE DISCHARGE Discharge Condition: GOOD Reason for Admission: Anemia, cellulitis Consultations: Infectious disease - Dr. Del Toro General surgery - Dr. Regalado Procedures: CXR (03/03): Mild bilateral interstitial lung opacities are present. The heart is mildly enlarged in size. No displaced fractures.Aortic atherosclerosis. IMPRESSION: Mild CHF pattern. CT abdomen/pelvis (03/04): FINDINGS: The evaluation of solid organs, vessels and bowel is limited secondary to the lack of contrast administration. The liver, spleen, pancreas, adrenals and kidneys appear grossly normal. There is no evidence of diverticulitis. Increased density within the gallbladder 4.4 centimeter area of increased density medial right groin/right labia. 4 centimeter fluid collection posterior subcutaneous tissue to the left of the anus. Atherosclerotic disease IMPRESSION: 4.4 centimeter area of increased density medial right groin/right labia. 4 centimeter fluid collection posterior subcutaneous tissue to the left of the anus. Both of these areas may represent abscesses. Increased density within the perineal tissues likely cellulitis Increased density within the gallbladder may represent sludge or stones Problem List: Acute blood loss anemia secondary to Xarelto use acute on chronic anemia Hidradenitis suppurativa with concern for abscess formation CKD 3 Chronic diastolic congestive heart failure COPDon home oxygen Hypertension Hyperlipidemia Gout PAD Brief History of Present Illness: 65-year-old female, PMH hidradenitis suppurativa, CKD 3, iron deficiency anemia, COPD on home oxygen (3-4 L nasal cannula), chronic diastolic CHF. Presents to ED for near syncope. States she has been at home and has felt very weak over the last several days. [place] like she was going to pass out. She states her hidradenitis groin lesions have been bleeding over the last few weeks. She was diagnosed with Covid pneumonia several weeks ago and was found to have atrial fibrillation. She was discharged home on Xarelto. Patient felt like she has not given clear medication instructions and was taking her Xarelto in combination with her Plavix. She states this made everything significantly worse. She has required blood transfusion for this issue previously. She otherwise states her hidradenitis lesions have been stable, no change in size, no change in level of discomfort/pain, no other new drainage other than the bleeding. In the ER she was noted to have a leukocytosis of 14.4, hemoglobin: 6.3, creatinine: 1.84, procalcitonin: 0.36. Hospital Course: Patient was empirically treated with IV antibiotics. She was noted to have moderate amount of bleeding from her upper thighs/groin lesions. Infectious disease was consulted and a CT abdomen/pelvis was obtained. To areas of fluid collection approximately 4 cm in diameter were noted in the right upper/anterior thigh in the left buttocks/perirectal region. General surgery was consulted to evaluate the patient and the role for surgery. Patient was adamantly refusing surgery, but states she will follow-up in the near future. The risks and benefits were discussed with the patient at length. She ultimately decided that she wanted to discontinue Xarelto due to the significant amount of bleeding that has been occurring while taking this medication. Xarelto was discontinued on admission, patient had significant improvement in her bleeding. ID recommended treatment with clindamycin. Patient discharged home with 2 weeks of p.o. clindamycin. Follow up with Dr. Adela fuller in a few weeks. Patient initially received 2 unit PRBCs on admission, with improvement of her hemoglobin from 6.3 -> 7.5. She was given 1/3 unit PRBC for goal of hemoglobin greater than 8.0 due to the active bleeding. Patient stated that her hidradenitis suppurativa lesions were unchanged for many months, pain was unchanged, no significant difference in drainage/output other than blood. She requested that we only concentrate on her anemia in stopping the bleeding. She otherwise wanted to go home. Recommended discontinuation of Xarelto, and can restart her Plavix in the next 3 to 5 days. On day of discharge, she was feeling well, like her usual self, with more energy after blood transfusion. Patient received a total of 3 units PRBCs. She was noted to have lownormal blood pressure, she did endorse significant decreased p.o. intake while in the hospital which patient states she just does not like the taste of the food here. Her blood pressure responded very well to a small bolus. Vital Signs/Physical Exam: Physical Exam: Gen: AAOx3, NAD HEENT: normal conjunctiva, sclera anicteric CV: regular rate/rhythm, no edema Pulm: CTAB, no wheeze/rales Abd: soft, nontender, nondistended Integumentary: b/l groin/ upper thigh hidradenitis suppurativa, fluctuance on R upper thigh, tender throughout. Temp Pulse Resp BP Pulse Ox 97.6 F 83 18 112/56 L 97 03/06/21 12:00 03/06/21 12:00 03/06/21 12:00 03/06/21 12:00 03/06/21 12:00 Laboratory Data at Discharge: WBC 13.30 K/uL (4.3-10.9) H 03/06/21 05:05 Hgb 8.7 g/dL (12.0-15.0) L 03/06/21 05:05 Hct 26.8 % (36.0-45.0) L 03/06/21 05:05 Plt Count 553 K/uL (152-406) H 03/06/21 05:05 PT 16.4 SECONDS (9.5-12.5) H 03/03/21 16:40 INR 1.42 03/03/21 16:40 Sodium 137 mmol/L (136-145) 03/06/21 05:05 Potassium 3.7 mmol/L (3.5-5.1) 03/06/21 05:05 BUN 21 mg/dL (7-18) H 03/06/21 05:05 Creatinine 2.01 mg/dL (0.55-1.3) H 03/06/21 05:05 Glucose 116 mg/dL (74-106) H 03/06/21 05:05 Magnesium 1.9 mg/dL (1.8-2.4) 03/06/21 05:05 Total Bilirubin 0.3 mg/dL (0.2-1.0) 03/06/21 05:05 AST 10 U/L (15-37) L 03/06/21 05:05 ALT 8 U/L (12-78) L 03/06/21 05:05 Alkaline Phosphatase 67 U/L (45-117) 03/06/21 05:05 Triglycerides 98 mg/dL (<150) 03/04/21 04:26 Cholesterol 138 mg/dL (<200) 03/04/21 04:26 HDL Cholesterol 42 mg/dL (40-60) 03/04/21 04:26 Cholesterol/HDL Ratio 3.29 03/04/21 04:26 Home Medications: Allopurinol 1 tab PO DAILY 01/13/20 Aspirin [Olimpia Chewable Aspirin] 81 mg PO DAILY 01/13/20 Cetirizine HCl 1 tab PO DAILY 01/13/20 Clopidogrel Bisulfate [Plavix*] 75 mg PO DAILY 01/13/20 Fluticasone Propion/Salmeterol [Fluticasone-Salmeterol 250-50] 2 spray IH BID 01/13/20 Montelukast [Singulair*] 1 tab PO DAILY 01/13/20 Nebivolol HCl [Bystolic*] 1 tab PO DAILY 01/13/20 Torsemide 10 mg PO DAILY 01/13/20 Tramadol HCl [Ultram] 1 tab PO Q6H PRN 01/13/20 Vit D3 2000 Unit 2,000 unit PO DAILY 01/13/20 Fluconazole [Diflucan] 200 mg PO DAILY 14 Days #14 tablet 03/06/21 Lactobacillus Acidophilus [Acidophilus] 100 mg PO BID 14 Days #28 capsule 03/06/21 clindamycin HCL [Clindamycin HCl] 300 mg PO TID 14 Days #42 capsule 03/06/21 New Medications: Lactobacillus Acidophilus [Acidophilus] 100 mg PO BID 14 Days #28 capsule clindamycin HCL [Clindamycin HCl] 300 mg PO TID 14 Days #42 capsule Fluconazole [Diflucan] 200 mg PO DAILY 14 Days #14 tablet Physician Discharge Instructions: You received 3 units of packed red blood cells. Your bleeding significantly improved after stopping your xarelto. Recommend discontinuing xarelto. As the bleeding continues to improve, recommend restarting your plavix in ~3-5 days. Follow up with your PCP in 3-5 days. Follow up with Dr. Regalado - General Surgery in a few weeks. You were found to have an elevated white blood cell count concerning for infection of your lesions. A CT was performed and revealed two 4 cm fluid collections in your right thigh and left buttock/perirectal area concerning for abscesses. These can get worse and make you more ill, and/or can also prevent your lesions from healing. You will likely need surgery for more definitive treatment, however you stated you do not currently want to pursue that. Please follow up with Dr. Regalado in the near future for further evaluation / discussion. Discharged home with antibiotic x 2 weeks and a probiotic. Keep doing your local wound care as you have been doing. Keep area clean/dry. Your urine grew some yeast in it, possible contamination or colonization, however will treat as true infection with 14 days of diflucan Followup: Francisco Javier Valdez MD [Primary Care Provider] - (Call to schedule follow up appointment.) Óscar Regalado MD [ACTIVE - CAN ADMIT] - (Call to schedule follow up appointment.) Time spent managing pt's care (in minutes): 45
[2021-03-06 21:28] VITALS: BP 112/56; O2SAT 97
== END 2021-03-06 15:00 | disposition home or self-care (01) | DRG 812 ==
LOC: ER 15:31 → ERHOLD 19:46 → 4TH 22:18
PROVIDERS: ADMIT Hospitalist; ATTEND Hospitalist
PROC: 30233N1 Transfusion of Nonautologous Red Blood Cells into Peripheral Vein, Percutaneous Approach (ICD-10-PCS; principal; 2021-03-03)
DX: D62 Acute posthemorrhagic anemia (principal); I13.0 Hypertensive heart and chronic kidney disease with heart failure and stage 1 through stage 4 chronic kidney disease, or unspecified chronic kidney disease; I50.32 Chronic diastolic (congestive) heart failure; L02.214 Cutaneous abscess of groin; L03.314 Cellulitis of groin; E46 Unspecified protein-calorie malnutrition; T45.515A Adverse effect of anticoagulants, initial encounter; L73.2 Hidradenitis suppurativa; N18.30 Chronic kidney disease, stage 3 unspecified; J44.9 Chronic obstructive pulmonary disease, unspecified; E78.5 Hyperlipidemia, unspecified; M10.9 Gout, unspecified; I73.9 Peripheral vascular disease, unspecified; I48.91 Unspecified atrial fibrillation; Z88.0 Allergy status to penicillin; Z88.2 Allergy status to sulfonamides; Z99.81 Dependence on supplemental oxygen; Z68.32 Body mass index [BMI] 32.0-32.9, adult; Z86.16 Personal history of COVID-19; Z20.822 Contact with and (suspected) exposure to COVID-19
CPT/HCPCS: 36415; 36430; 71045; 74176; 80048; 80053; 80061; 80076; 81003; 81015; 82728; 83540; 83605; 83735; 83880; 84145; 84439; 84443; 84466; 84484; 85014; 85018; 85025; 85044; 85610; 86850; 86900; 86901; 87040; 87086; 87088; 93005; 96372; 99285; J2270; J2405; J3370; J7040; J7050; P9016; Q2035; U0003